=== PATIENT | male | born 1940 | race Caucasian/White ===

== ENCOUNTER 2017-06-18 09:37 | Outpatient (RCR) | payer MEDICARE, OTHER, SELFPAY | END 2017-06-19 | LOC: PULREHAB 09:37 | PROVIDERS: Visit Provider Nurse Practitioner Family | DX: J44.9 Chronic obstructive pulmonary disease, unspecified (principal) | CPT/HCPCS: 93798; G0424 ==

== ENCOUNTER 2017-06-25 10:15 | Outpatient (RCR) | payer MEDICARE, OTHER, SELFPAY | END 2017-06-25 10:18 | LOC: PT 10:15 | PROVIDERS: Family Provider Internal Medicine Adolescent Medicine; PCP Internal Medicine Adolescent Medicine; Visit Provider Nurse Practitioner Family | DX: J44.9 Chronic obstructive pulmonary disease, unspecified (principal) | CPT/HCPCS: G0424 ==

== ENCOUNTER → 2017-07-01 12:11 | Outpatient (CLI) | payer MEDICARE, OTHER, SELFPAY ==
--- NOTE | 2017-07-01 12:17 | XR_ITS ---
XR hand LT min 3V HISTORY: ITS.REASON: LT HAND PAIN ORDERING PHYSICIAN: Yobany Stoll MD PATIENT AGE: 77 years COMPARISON: 05/01/2014 FINDINGS: There are moderate osteoarthritic changes at the first interphalangeal joint with mild osteoarthritic changes of the second and third metacarpophalangeal joints and second DIP and fifth PIP joint. No erosive changes are evident. No fracture or dislocation. IMPRESSION: Osteoarthritic changes of the hand as described above overall not significant changed
== END ==
PROVIDERS: PCP Internal Medicine Adolescent Medicine; Visit Provider Internal Medicine Adolescent Medicine
DX: M79.642 Pain in left hand (principal)
CPT/HCPCS: 73130

== ENCOUNTER → 2017-09-15 09:18 | Outpatient (POV) | payer MEDICARE, OTHER, SELFPAY | PROVIDERS: Family Provider Internal Medicine Adolescent Medicine; PCP Internal Medicine Adolescent Medicine; Visit Provider Internal Medicine | DX: Z00.00 Encounter for general adult medical examination without abnormal findings (principal) ==

== ENCOUNTER → 2017-09-24 13:28 | Outpatient (CLI) | payer MEDICARE, OTHER, SELFPAY ==
--- NOTE | 2017-09-24 13:33 | CT_ITS ---
CT chest wo con COMPARISON: CT scan of chest noncontrast 04/23/2017 HISTORY: Follow-up pulmonary nodules TECHNIQUE: Multiaxial scans obtained from thoracic inlet the hemidiaphragms and were performed without IV contrast. Sagittal coronal reformats were evaluated as well. FINDINGS: The lung foley are somewhat hyperexpanded with tiny centrilobular emphysema again noted. The small pleural-based opacity right upper lobe seen on previous exam has resolved and this likely was a small area of pneumonic infiltrate. Do not definitely see the right upper lobe nodule described previously. The tiny left lower lobe nodule is still present subpleural location but could represent focal post inflammatory scar. No new nodules are seen. Again noted are multiple metallic sutures from previous hiatal hernia surgery. Scans of the upper abdomen again show multiple calcified gallstones. IMPRESSION: Mild centrilobular emphysema stable tiny noncalcified nodule versus focal plaque post left or scarring left base, no other definite ulnar nodule seen.
== END ==
PROVIDERS: Family Provider Internal Medicine Adolescent Medicine; PCP Internal Medicine Adolescent Medicine; Visit Provider Internal Medicine
DX: R91.1 Solitary pulmonary nodule (principal)
CPT/HCPCS: 71250

== ENCOUNTER → 2017-10-23 13:54 | Outpatient (CLI) | payer MEDICARE, OTHER, SELFPAY ==
--- NOTE | 2017-10-23 13:57 | MM_ITS ---
MM Dig mamm BI DX w/CAD COMPARISON: none INDICATION: Left breast soreness. ORDERING PHYSICIAN: Yobany Stoll MD PATIENT AGE: 77 years TECHNIQUE: Routine images along with problems solving views of the left breast FINDINGS: There is heterogeneous increased density in the retroareolar region of the left breast have an a somewhat flame-shaped pattern consistent with gynecomastia. No discrete nodule or mass is evident. The right breast has an unremarkable appearance. IMPRESSION: Left-sided gynecomastia BI-RADS Category: 2 Benign Finding(s) Follow-up recommended as clinically warranted (A letter has been sent to the patient regarding results of the study.)
== END ==
PROVIDERS: Family Provider Internal Medicine Adolescent Medicine; PCP Internal Medicine Adolescent Medicine; Visit Provider Internal Medicine Adolescent Medicine
DX: N63.20 Unspecified lump in the left breast, unspecified quadrant (principal); N62 Hypertrophy of breast
CPT/HCPCS: 77066

== ENCOUNTER → 2017-11-19 12:42 | Outpatient (CLI) | payer MEDICARE, OTHER, SELFPAY | PROVIDERS: Family Provider Internal Medicine Adolescent Medicine; PCP Internal Medicine Adolescent Medicine; Visit Provider Internal Medicine | DX: I20.8 Other forms of angina pectoris (principal); R06.00 Dyspnea, unspecified | CPT/HCPCS: 93306 ==

== ENCOUNTER → 2018-01-05 10:50 | Outpatient (POV) | payer MEDICARE, OTHER, SELFPAY | PROVIDERS: Family Provider Internal Medicine Adolescent Medicine; PCP Internal Medicine Adolescent Medicine; Visit Provider Internal Medicine | DX: Z00.00 Encounter for general adult medical examination without abnormal findings (principal) ==

== ENCOUNTER → 2018-02-23 09:50 | Outpatient (CLI) | payer MEDICARE, OTHER, SELFPAY ==
[2018-02-23 05:11] VITALS: BP 128/80; BP 140/85; PULSE 70; PULSE 82; RESP 18; RESP 26; O2SAT 90; O2SAT 95
[2018-02-23 10:40] VITALS: PULSE 70; PULSE 74
== END ==
PROVIDERS: Family Provider Internal Medicine Adolescent Medicine; PCP Internal Medicine Adolescent Medicine; Visit Provider Internal Medicine
DX: R06.02 Shortness of breath (principal); J44.9 Chronic obstructive pulmonary disease, unspecified
CPT/HCPCS: 94060; 94618; 94640; 94726; 94729

== ENCOUNTER → 2018-03-16 11:35 | Outpatient (POV) | payer MEDICARE, OTHER, SELFPAY | PROVIDERS: Family Provider Internal Medicine Adolescent Medicine; PCP Internal Medicine Adolescent Medicine; Visit Provider Internal Medicine | DX: Z00.00 Encounter for general adult medical examination without abnormal findings (principal) ==

== ENCOUNTER → 2018-05-18 12:07 | Outpatient (POV) | payer MEDICARE, OTHER, SELFPAY | PROVIDERS: Visit Provider Internal Medicine | DX: Z00.00 Encounter for general adult medical examination without abnormal findings (principal) ==

== ENCOUNTER → 2018-06-29 09:33 | Outpatient (POV) | payer MEDICARE, OTHER, SELFPAY | PROVIDERS: Visit Provider Internal Medicine | DX: Z00.00 Encounter for general adult medical examination without abnormal findings (principal) ==

== ENCOUNTER → 2018-07-29 20:16 | Outpatient (CLI) | payer MEDICARE, OTHER, SELFPAY | PROVIDERS: PCP Internal Medicine Adolescent Medicine; Visit Provider Nurse Practitioner Family | DX: G47.33 Obstructive sleep apnea (adult) (pediatric) (principal) | CPT/HCPCS: 95811 ==

== ENCOUNTER → 2018-12-07 13:56 | Outpatient (POV) | payer MEDICARE, OTHER, SELFPAY | PROVIDERS: Visit Provider Internal Medicine | DX: Z00.00 Encounter for general adult medical examination without abnormal findings (principal) ==

== ENCOUNTER → 2018-12-30 12:50 | Outpatient (CLI) | payer MEDICARE, OTHER, SELFPAY | PROVIDERS: PCP Internal Medicine Adolescent Medicine; Visit Provider Internal Medicine | DX: R06.02 Shortness of breath (principal); J44.9 Chronic obstructive pulmonary disease, unspecified | CPT/HCPCS: 94060; 94618; 94726; 94727; 94729 ==

== ENCOUNTER → 2019-01-04 09:46 | Outpatient (POV) | payer MEDICARE, OTHER, SELFPAY | PROVIDERS: Visit Provider Internal Medicine | DX: Z00.00 Encounter for general adult medical examination without abnormal findings (principal) ==

== ENCOUNTER → 2019-01-12 12:44 | Outpatient (CLI) | payer MEDICARE, OTHER, SELFPAY ==
--- NOTE | 2019-01-12 12:49 | CT_ITS ---
CT chest wo con HISTORY: ITS.REASON: SOB,COPD ORDERING PHYSICIAN: Esequiel Yeh MD PATIENT AGE: 78 years COMPARISON: 04/23/2017. Technique: Axial images obtained. Sagittal, and coronal reformatted images are also generated and reviewed. All CT scans at the facility use one or more dose reduction, viz: automated exposure control, ma/kV adjustment per patient size (including targeted exams where dose is matched to indication, i.e. head), or iterative reconstruction technique. FINDINGS: Airway structures are patent except image #13 and 14 shows a 10 mm polypoid density from the posterior left lateral wall of the trachea at the thoracic inlet. Also noted is a stable small 4.0 mm air-filled structure adjacent to the right lateral posterior wall of the mid trachea, image #19. This is stable and likely a tracheal diverticulum. The linear subpleural density in the left lower lobe is stable. Also noted on this study is a 2 mm noncalcified faint subpleural nodule in the right upper lobe and this was present on 05/08/2016 exam as well. Emphysematous lung changes are stable. There is a density likely a coronary artery stent. Heart size is normal. There are no abnormal mediastinal or hilar masses. Again seen are numerous gallstones without pericholecystic fluid or biliary dilatation. Impression: Subpleural short linear left lower lobe density and 2 mm noncalcified right upper lobe subpleural nodule are stable compared to 05/08/2016 suggesting benign etiology. No further follow-up is necessary. Stable chronic small tracheal diverticulum discussed above. Left tracheal wall polypoid density likely some adherent aspirated or retained secretions. Stable uncomplicated cholelithiasis.
== END ==
PROVIDERS: PCP Internal Medicine Adolescent Medicine; Visit Provider Internal Medicine
DX: R06.02 Shortness of breath (principal); J44.9 Chronic obstructive pulmonary disease, unspecified
CPT/HCPCS: 71250

== ENCOUNTER → 2019-02-18 15:04 | Outpatient (CLI) | payer MEDICARE, OTHER, SELFPAY | PROVIDERS: PCP Internal Medicine Adolescent Medicine; Visit Provider Urology | DX: F17.200 Nicotine dependence, unspecified, uncomplicated; G47.30 Sleep apnea, unspecified; I11.9 Hypertensive heart disease without heart failure; I25.10 Atherosclerotic heart disease of native coronary artery without angina pectoris; I48.0 Paroxysmal atrial fibrillation; J44.9 Chronic obstructive pulmonary disease, unspecified; R06.09 Other forms of dyspnea; R60.9 Edema, unspecified; Z95.0 Presence of cardiac pacemaker; Z95.5 Presence of coronary angioplasty implant and graft; E78.49 Other hyperlipidemia | CPT/HCPCS: 93306 ==

== ENCOUNTER → 2019-04-12 11:24 | Outpatient (POV) | payer MEDICARE, OTHER, SELFPAY | PROVIDERS: PCP Internal Medicine Adolescent Medicine; Visit Provider Internal Medicine | DX: Z00.00 Encounter for general adult medical examination without abnormal findings (principal) ==

== ENCOUNTER → 2019-04-19 06:09 | Outpatient (CLI) | payer MEDICARE, OTHER, SELFPAY ==
--- NOTE | 2019-04-19 06:10 | CA_ITS ---
APPROVED REPORT Exam: Pharmacologic Technologist: Oralia Bush, Ht: 5 ft 9 in Wt: 180 lbs BSA: 1.98 m2 HR: 71 bpm BP: 121/73 mmHg Rhythm: NSR,ST-T ABNORMALITY INFERIORLY Medical History Medical History: HTN Medications: Asa,,,,, Trazadone,,,,, Sotalol,,,,, Atorvastatin,,,,, Flonase,,,,, Duoneb,,,,, Lasix,,,,, TAMSULOSIN,,,,, Montelukast,,,,, Nitro,,,,, ANoro,,,,, OmeprazLE,,,,, Allergies: No known drug allergies Cardiac Risk Factors: HTN, FHX of CAD Stress Test Details Test: LEXISCAN HR Resting HR: 70 bpm Max Heart Rate (APMHR): 140 bpm Max HR Achieved: 81 bpm Target HR (85% APMHR): 119 bpm % of APMHR: 57 Recovery HR: 72 bpm BP Resting BP: 121.0/73.0 mmHg Max BP: 121.0/73.0 mmHg Recovery BP: 118.0/54.0 mmHg ECG Resting ECG: NSR,ST-T ABNORMALITY INFERIORLY Clinical Exercise duration: 05:07 min Highest Stage Achieved: Exercise capacity: 1.0 METs Stress ECG Conclusion DURING TEST PATIENT WAS PLACED ON 2LPM NASAL CANNULA FOR HIS COMFORT. DURING INFUSION OF LEXISCAN PATIENT HAD DYSPNEA,SOA BUT NO CHEST PAIN. BRIEF RUNS OF V. PACING. OCCASIONAL PAC. NO SIGNIFICANT ST-T CHANGES. UNREMARKABLE LEXISCAN STRESS. MYOVIEW IMAGES REPORTED SEPARATELY. Electronically signed by : Anibal Keen, 04/22/2019 14:44:11
--- NOTE | 2019-04-19 06:10 | NM_ITS ---
APPROVED REPORT Exam: Nuclear Stress Test Indication: SOB, High cholesterol, Tobacco use, Family history, CAD Patient Location: Outpatient Stress Tech: Dinora Rachelle NM Tech:Nicky Long, ARRT, RT (R)(N) Ht: 5 ft 9 in Wt: 180 lbs HR: 71 bpm BP: 121/73 mmHg BSA: 1.98 m2 BMI: 26.5 History: SOB, High cholesterol, Tobacco use, Family history, CAD Procedure: Patient received a 0.4 mg of intravenous Lexiscan, resting heart rate 71 bpm, resting blood pressure 121/73 mmHg, with Lexiscan maximum heart rate achived was 76 bpm which is % of the maximum predicted heart rate and blood pressure was 116/58 mmHg. With Lexiscan, patient denied any complaint of chest pain. Cardiac Stress and Resting SPECT Images: Cardiac Stress and Resting SPECT images were obtained using technetium 99m Myoview 31.0 mCi stress and 10.78 mCi at rest. Ejection fraction is normal at 65%. A fixed defect is present within the inferoapical region. This becomes more prominent on the rest images. These findings are consistent with ischemic changes with an area of infarction at the apex with prominent diaphragmatic attenuation in the inferior wall Conclusion: Ejection fraction is normal at 65%. A fixed defect is present within the inferoapical region. This becomes more prominent on the rest images. These findings are consistent with ischemic changes with an area of infarction at the apex with prominent diaphragmatic attenuation in the inferior wall No reversible defects are evident Electronically signed by : Hamzah Hamilton MD 04/20/2019 16:03:49
--- NOTE | 2019-04-19 07:04 | HMH.ITSHM ---
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 []ASA ATORVASTATIN SOTOLOL MONTALUKAST OMEPRAZOLE MULTIVITAMIN PROAIR
== END ==
PROVIDERS: PCP Internal Medicine Adolescent Medicine; Visit Provider Nurse Practitioner Family
DX: G47.33 Obstructive sleep apnea (adult) (pediatric) (principal); I11.9 Hypertensive heart disease without heart failure; I25.10 Atherosclerotic heart disease of native coronary artery without angina pectoris; J44.9 Chronic obstructive pulmonary disease, unspecified; R06.00 Dyspnea, unspecified; Z95.0 Presence of cardiac pacemaker; Z95.5 Presence of coronary angioplasty implant and graft
CPT/HCPCS: 78452; 93017; A9502; J2785

== ENCOUNTER 2019-05-11 14:25 | Inpatient (IN) ==
[2019-05-11 14:52] LABS: Basophils # 0.1 K/mm3 (0-0.2); Basophils % 0.7 % (0.1-2.0); Eosinophils # 0.8 K/mm3 (0.0-0.4); Eosinophils % 7.2 % (0.1-12.0); Hemoglobin 15.4 g/dL (14.1-18.0); Lymphocytes # 1.6 K/mm3 (0.7-4.5); Lymphocytes % 14.5 % (10-50); Mean Corpuscular HGB Conc 34.2 g/dL (31.8-35.4); Mean Corpuscular Volume 104.2 fl (80-94); Mean Platelet Volume 8.2 fl (7.4-10.4); Monocytes # 0.7 K/mm3 (0.1-1.0); Neutrophils % 71.6 % (37.0-80.0); Platelet Count 302 K/mm3 (142-424); Red Blood Count 4.32 M/mm3 (4.60-6.20); Red Cell Distribution Width 13.9 % (11.5-17.5); White Blood Count 11.2 K/mm3 (4.8-10.8)
[2019-05-11 15:00] LABS: Albumin/Globulin Ratio 1.1 (1.1-1.8); Bilirubin,Total 0.7 mg/dL (0.2-1.0); Globulin 3.8 gm/dl (1.3-3.2); Total Protein,Serum 7.8 gm/dL (6.4-8.2)
--- NOTE | 2019-05-11 15:50 | Emergency Department Note ---
ED Disposition Clinical Impression: Acute exacerbation of chronic obstructive airways disease Disposition: Admitted as Observation Condition on Discharge: Fair - Critical Care Critical Care Time: No Attestation: On 05/11/19, the high probability of a clinically significant, sudden or life threatening deterioration of the following system(s) required my full and direct attention, intervention and personal management. The time I documented below is in addition to time spent performing reported procedures but includes the foll owing listed in this critical care notation. Medical Decision Making - Medical Records Medical records reviewed: Yes: I reviewed the patient's medical records. - Jamie Inquiry Pt receiving controlled substance: No Vital Signs: 05/11/19 14:27 Temperature 98.7 F Temperature Source Oral Pulse Rate [Right Radial] 78 Respiratory Rate 20 Blood Pressure [Right Arm] 165/85 H Blood Pressure Mean [Right Arm] 111 Blood Pressure Source [Right Arm] Automatic Cuff Blood Pressure Position [Right Arm] Sitting 02 Sat by Pulse Oximetry 95 Oxygen Delivery Method Nasal Cannula Oxygen Flow Rate (LPM) 2 - Lab Data Lab results reviewed: Yes: I reviewed the patient's lab results. Lab Results 05/11/19 14:15: WBC 11.2 H, RBC 4.32 L, Hgb 15.4, Hct 45.0, MCV 104.2 H, MCH 35.6 H, MCHC 34.2, RDW 13.9, Plt Count 302, MPV 8.2, Neut % (Auto) 71.6, Lymph % (Auto) 14.5, Bath % (Auto) 6.0, Eos % (Auto) 7.2, Baso % (Auto) 0.7, Neut # (Auto) 8.0 H, Lymph # (Auto) 1.6, Bath # (Auto) 0.7, Eos # (Auto) 0.8 H, Baso # (Auto) 0.1 05/11/19 14:15: Sodium 139, Potassium 4.0, Chloride 102, Carbon Dioxide 33 H, Anion Gap 8.0, BUN 11, Creatinine 0.68 L, Estimated Creat Clear 68, Estimated GFR 112, Est GFR ( Amer) 136, Glucose 85, Calcium 9.0, Total Bilirubin 0.7, AST 20, ALT 21, Alkaline Phosphatase 147 H, Total Protein 7.8, Albumin 4.0, Globulin 3.8 H, Albumin/Globulin Ratio 1.1 05/11/19 14:15: Troponin I < 0.02 05/11/19 14:57: Lactate 1.3 05/11/19 15:31: Specimen Source Right brachial, O2 % 2, ABG pH 7.32 L, ABG pCO2 60.4 H, ABG pO2 82.1, ABG HCO3 30.3 H, ABG Total CO2 32.1 H, ABG O2 Saturation 95, ABG Base Excess 4.2 H, Hamzah Test acceptable Result diagrams: 05/11/19 14:15 05/11/19 14:15 Orders (Tests/Meds): ED MEDICATIONS Generic Name Dose Route Start Last Admin Trade Name Freq PRN Reason Stop Dose Admin Azithromycin 500 mg/ Sodium 250 mls @ 250 mls/hr 05/11/19 16:45 Chloride IV 05/25/19 16:44 Q24H SANTANA Protocol Ceftriaxone Sodium 1 gm/ 50 mls @ 100 mls/hr 05/11/19 16:45 Sodium Chloride IV 05/25/19 16:44 Q24H SANTANA Protocol Levalbuterol HCl 1.25 mg 05/11/19 20:00 Xopenex 1.25mg/3ml Neb IH 06/10/19 19:59 QIDRT SANTANA Discontinued Medications Generic Name Dose Route Start Last Admin Trade Name Freq PRN Reason Stop Dose Admin Methylprednisolone Sodium Succinate 125 mg 05/11/19 15:50 05/11/19 15:52 Solu-Medrol 125mg/2ml Vial IV 05/11/19 15:51 125 mg ONCE ONE Administration ORDERS Category Date Time Status Troponin I Q3H Lab 05/11/19 19:00 Ordered Troponin I Q3H Lab 05/11/19 22:00 Ordered Blood Culture Stat Micro 05/11/19 14:57 Received - Radiology Data #1 Image(s): Chest Image Reviewed: Yes I reviewed the patient's radiology image Preliminary Findings: Abnormal (copd) - ECG Data Tracing #1 Normal Sinus Rhythm: Yes Ischemic changes: non-specific ST-T wave changes - BRENT Score for Non-Stemi Age of Patient: 80-89 years old Heart Rate: 70-89 bpm Systolic Blood Pressure: 160-199 mmHg Serum Creatinine: 0.40-0.79 mg/dl CHF Killip Class: I-No CHF Other Risk Factors: None Non-Stemi Risk Score: 114 Resp/SOB HPI - General Chief Complaint: Shortness of Breath/Dyspnea Stated Complaint: Shortness of Air Time Seen by Provider: 05/11/19 14:45 Mode of Arrival: EMS Source of Information: Patient, Relative, EMS, Medical Record Limitations: No Limitations Description of Symptoms (Recalled from ER Triage Doc. by RN): C/O SOA SINCE YEST ERDAY. PT STATES THAT HE HAS TAKEN 5 DUONEB TREATMENTS SINCE 11P LAST NIGHT. PT STATES THAT HE IS NOW FEELING MUCH BETTER. - History of Present Illness progressive sob and cough over the last 24 hrs with multiple with hx of copd MD Complaint: shortness of breath Onset (ago): day(s) Severity: moderate Known history of: COPD Associated symptoms: denies other symptoms Treatment prior to arrival: bronchodilator - Related Data Home oxygen amount: 2 liters Home Medications Medication Instructions Recorded Confirmed aspirin 325 mg tablet 162.5 mg PO .qday tab 07/24/17 05/10/19 [id number] tablet 1 tab PO ONCE 07/24/17 05/10/19 montelukast 10 mg tablet 10 mg PO DAILY tab 07/28/17 05/10/19 roflumilast 500 mcg tablet 500 mcg PO DAILY tab 07/28/17 05/10/19 ipratropium-albuterol 0.5 mg-3 1 applic INHALATION BID 30 Days 08/10/17 05/10/19 mg(2.5 mg base)/3 mL nebulization #360 soln umeclidinium 62.5 mcg-vilanterol 1 applicatio INHALATION BID 30 08/10/17 05/10/19 25 mcg/actuation powdr for Days #60 inhalation fluticasone furoate 200 1 applic INHALATION BID 30 Days 08/09/18 05/10/19 mcg-vilanterol 25 mcg/dose #60 each inhalation powder Atorvastatin Calcium [Lipitor 20mg 20 mg PO DAILY 10/04/18 05/10/19 Tablet] Trazodone HCl 100 mg PO DAILY 05/02/19 05/10/19 Previous Rx's Medication Instructions Recorded nitroglycerin 0.4 mg sublingual 0.4 mg SUBLINGUAL Q5-15M PRN #30 12/15/17 tablet tab sotalol 120 mg tablet 120 mg PO Q12H #180 tab 03/18/19 omeprazole 40 mg capsule,delayed 40 mg PO DAILY #90 cap 04/15/19 release Allergies Allergy/AdvReac Type Severity Reaction Status Date / Time No Known Drug Allergies Allergy Unknown Verified 05/10/19 10:00 [facility] History - Hepatitis A Screen Drug use history?: No High risk sexual behaviors?: No History of sexually transmitted infection?: No Currently employed?: No Childcare worker?: No Do you have indoor plumbing?: Yes Do you have electricity?: Yes Attestation statement:: This patient has been screened for Hepatitis A risk factors. I have reviewed the patient's past medical history: Yes Medical History: Reports:: Arrhythmia, Asthma, Atrial Fibrillation, Chronic Obstructive Pulmonary Disease (COPD), Coronary Artery Disease, Gastroesophageal Reflux Disease(GERD), Hyperlipidemia, Hypertension, Internal Pacemaker Denies:: Cancer, Diabetes Mellitus Type 1, Diabetes Mellitus Type 2, MRSA, Seizures Other Medical History: Reports: Other Comment: CINTHIA Other Surgeries: Yes: Cardiac Catheterization, Colonoscopy, Coronary Stent, Hernia Repair, Pacemaker, Other (Back Sx, LHC-stent, Loop recorder placed) Amputation: No Fractures: No Comment: Back sx - Social History Smoking Status: Never smoker Tobacco Type: cigarettes # Packs/Day (cigarettes): 1 Alcohol Intake: never Alcohol Intake Frequency:: other Substance Use Type: denies use Occupational Status: retired Housing: house Household Members: none Family Hx:: Heart Attack ROS Obtained: Yes All systems reviewed & no additional complaints - Constitutional Constitutional: Denies fever(s) - Eyes Eyes: Denies change in vision - ENT Ears, Nose, Mouth, and Throat: Denies sore throat - Cardiovascular Cardiovascular: Denies chest pain, Reports dyspnea - Respiratory Respiratory: Yes cough, Yes non-productive cough, No coughing up blood - Gastrointestinal Gastrointestingal: Denies: abdominal pain - Genitourinary Male Genitourinary: Denies hematuria - Musculoskeletal Musculoskeletal: Denies joint swelling - Integumentary/Breasts Skin/Breast: Denies rash - Neurologic Neurologic: Denies seizure-like activity Physical Exam - General General appearance: alert - Head Head exam: normocephalic - Eye Eye exam: Present: PERRL, EOMI - ENT ENT exam: Present: mucous membranes dry - Neck Neck exam: Present: trachea midline - Respiratory Respiratory exam: Present: wheezes, accessory muscle use, prolonged expiratory phase. Absent: respiratory distress - Cardiovascular Cardiovascular exam: Present: regular rate, systolic murmur, +S4 - Abdominal Exam Abdominal exam: Present: soft - Extremities Exam Extremities exam: Present: pedal edema. Absent: calf tenderness - Neurological Exam Neurological exam: Present: alert, CN II-XII intact - Psychiatric Psychiatric exam: Present: normal affect - Skin Skin exam: Absent: rash
[2019-05-11 16:23] LABS: ABG Base Excess 4.2 mmol/L (-2.4-2.3); ABG HCO3 30.3 mmhg (22.0-26.0); ABG Oxygen Saturation 95 % (90-100); ABG PH 7.32 mmol/L (7.35-7.45); ABG PO2 82.1 mmhg (80-100); ABG TCO2 32.1 mmhg (23-27)
[2019-05-11 16:24] LABS: Oxygen 2 %
[2019-05-11 16:25] LABS: Allen's Test acceptable
[2019-05-11 16:35] LABS: ABG PCO2 60.4 mmhg (35.0-45.0)
[2019-05-11 22:00] LABS: Anion Gap 3.4 mEq/L (5-15); Calcium 8.1 mg/dL (8.5-10.1)
[2019-05-11 22:22] LABS: ABG Base Excess 0.2 mmol/L (-2.4-2.3); ABG HCO3 28.8 mmhg (22.0-26.0); ABG Oxygen Saturation 92 % (90-100); ABG PO2 75.2 mmhg (80-100); ABG TCO2 31.3 mmhg (23-27)
[2019-05-11 22:24] LABS: Allen's Test Acceptable; Oxygen 30% %
[2019-05-11 22:26] LABS: ABG PCO2 80.7 mmhg (35.0-45.0); ABG PH 7.17 mmol/L (7.35-7.45)
[2019-05-12 02:07] LABS: ABG Base Excess 0.7 mmol/L (-2.4-2.3); ABG Oxygen Saturation 98 % (90-100); ABG PH 7.25 mmol/L (7.35-7.45); ABG PO2 118.2 mmhg (80-100)
[2019-05-12 02:09] LABS: Allen's Test Acceptable; Oxygen 35 %; PEEP 8
[2019-05-12 02:10] LABS: ABG PCO2 65.9 mmhg (35.0-45.0)
[2019-05-12 06:38] LABS: Basophils % 0.1 % (0.1-2.0); Hematocrit 37.5 % (42.0-52.0); Lymphocytes # 0.9 K/mm3 (0.7-4.5); Lymphocytes % 5.4 % (10-50); Mean Corpuscular HGB Conc 33.6 g/dL (31.8-35.4); Mean Corpuscular Volume 103.9 fl (80-94); Monocytes # 0.4 K/mm3 (0.1-1.0); Monocytes % 2.1 % (1.7-9.3); Neutrophils # 15.7 K/mm3 (1.8-7.8); Neutrophils % 92.4 % (37.0-80.0); Platelet Count 237 K/mm3 (142-424); Red Blood Count 3.61 M/mm3 (4.60-6.20); Red Cell Distribution Width 13.8 % (11.5-17.5); White Blood Count 16.9 K/mm3 (4.8-10.8)
[2019-05-12 06:49] LABS: Anion Gap 5.6 mEq/L (5-15); Calcium 8.3 mg/dL (8.5-10.1)
[2019-05-12 06:59] LABS: Hemoglobin 12.7 g/dL (14.1-18.0)
--- NOTE | 2019-05-12 07:44 | Pharmacy Consult Notes ---
[facility] [place] Pharmacy VTE Monitoring - Patient Demographics Admission date: 05/11/19 Report Date: 05/12/19 Time: 07:43 Allergies/Adverse Reactions: Patient Allergies No Known Drug Allergies Allergy (Unknown, Verified 05/10/19 10:00) Height: 1.75 m Weight: 78.67 kg Patient Problems: Current Active Problems Acute exacerbation of chronic obstructive airways disease (Acute) - VTE Risk Labs: VTE Related Lab Results Hgb 12.7 g/dL (14.1-18.0) L D 05/12/19 06:13 Hct 37.5 % (42.0-52.0) L 05/12/19 06:13 Plt Count 237 K/mm3 (142-424) 05/12/19 06:13 BUN 11 mg/dL (7-18) 05/12/19 06:13 Creatinine 0.77 mg/dL (0.70-1.30) 05/12/19 06:13 Estimated Creat Clear 66 mL/min (50-200) 05/12/19 06:13 Was VTE Risk Assessment Performed: Yes VTE Score: 7 VTE Risk Level: Moderate Risk - Prophylaxis VTE Prophylaxis Ordered?: Yes Types of VTE Prophylaxis: TEDS Knee High Location of Applied Device: Bilateral Lower Extremeties - VTE Diagnosis Confirmed Treatment or plan recommended: Continue Current Treatment
[2019-05-12 08:17] LABS: Lymphocytes % 7 % (10-50); Monocytes % 2 % (2-9); Myelocytes % 1 (0-1); Neutrophils % 87 % (42-76); Total Cells Counted 100
[2019-05-12 08:18] LABS: Anisocytosis 1+; Macrocytosis 1+
--- NOTE | 2019-05-12 08:28 | History & Physical Report ---
*Admission Date: 05/11/19 *Chief complaint: shortness of breath *History of present illness: 79-year-old gentleman with severe COPD on oxygen at home who presented to the ER due to worsening shortness of breath, cough, congestion. Has any fabienne fevers at home, chest pain, nausea, vomiting. Uses nebulizer 3-4 times a day at home but is not helping with his shortness of breath. Initial work-up in the ER showed concern for COPD with infiltrate in the right lower lobe/right hilar region on x-ray, hypoxemia on a blood gas and hypercarbia with respiratory acidosis of pH below 7.2. He was noted to have an elevated white count and admitted for hypoxemic and hypercarbic respiratory failure in the setting of suspected pneumonia. Started on antibiotics and steroids. Getting breathing treatments through the night. Initially required Vapotherm overnight with some improvement in his respiratory status. On interview this morning is in mild distress on interview on 2 to 3 L of supple mental oxygen through nasal cannula. Family at bedside stating he looks a little better but still ill compared to his baseline. 14 point review of systems reviewed. Positives and negatives as per above. [facility] History I have reviewed the patient's past medical history: Yes Medical History: Reports:: Arrhythmia, Asthma, Atrial Fibrillation, Chronic Obstructive Pulmonary Disease (COPD), Coronary Artery Disease, Gastroesophageal Reflux Disease(GERD), Hyperlipidemia, Hypertension, Internal Pacemaker Denies:: Cancer, Diabetes Mellitus Type 1, Diabetes Mellitus Type 2, MRSA, Seizures *Have you ever received a pneumonia vaccine?: Yes *Have you received a flu vaccine this season?: Yes Other Medical History: Reports: Other Other Surgeries: Yes: Cardiac Catheterization, Colonoscopy, Coronary Stent, Hernia Repair, Pacemaker, Other (Back Sx, LHC-stent, Loop recorder placed) Amputation: No Fractures: No - *Social History Smoking Status: Never smoker Tobacco Type: cigarettes # Packs/Day (cigarettes): 1 Alcohol Intake: never Alcohol Intake Frequency:: other Substance Use Type: denies use *Occupational Status:: retired Housing: house Household Members: none *Travel in the last 8 weeks: None Family Hx:: Heart Attack Review of Systems - Review of Systems Review of systems:: pertinent systems reviewed and negative unless documented below - *Neurologic Denies seizure-like activity Meds Home Medications Medication Instructions Recorded Confirmed Type aspirin 325 mg tablet 162.5 mg PO DAILY tab 07/24/17 05/12/19 History jqgolnrrhsbq-sfnsextu-oibguo tablet 1 tab PO ONCE 07/24/17 05/11/19 History montelukast 10 mg tablet 10 mg PO DAILY tab 07/28/17 05/11/19 History fluticasone furoate 200 1 puff IH DAILY 30 Days #60 each 08/09/18 05/12/19 History mcg-vilanterol 25 mcg/dose inhalation powder Atorvastatin Calcium [Lipitor 20mg 20 mg PO HS 10/04/18 05/12/19 History Tablet] sotalol 120 mg tablet 120 mg PO Q12H #180 tab 03/18/19 05/11/19 Rx omeprazole 40 mg capsule,delayed 40 mg PO DAILY #90 cap 04/15/19 05/11/19 Rx release Glycopyrrolate/Formoterol Fum 2 puffs IH BID 05/12/19 05/12/19 History [Bevespi Aerosphere Inhaler] Ipratropium/Albuterol Sulfate 3 ml IH QID 05/12/19 05/12/19 History [Duoneb 3mL neb] Trazodone HCl [Desyrel 50mg tablet] 50 mg PO HSP PRN 05/12/19 05/12/19 History Allergies Allergy/AdvReac Type Severity Reaction Status Date / Time No Known Drug Allergies Allergy Unknown Verified 05/10/19 10:00 Exam Vital signs and Labs for Last 24 Hours: Temp Pulse Resp BP Pulse Ox 97.6 F 70 18 126/78 90 L 05/12/19 04:00 05/12/19 06:19 05/12/19 04:00 05/12/19 04:00 05/12/19 06:19 Laboratory Results - last 24 hr 05/11/19 14:15: WBC 11.2 H, RBC 4.32 L, Hgb 15.4, Hct 45.0, MCV 104.2 H, MCH 35.6 H, MCHC 34.2, RDW 13.9, Plt Count 302, MPV 8.2, Neut % (Auto) 71.6, Lymph % (Auto) 14.5, [place] % (Auto) 6.0, Eos % (Auto) 7.2, Baso % (Auto) 0.7, Neut # (Auto) 8.0 H, Lymph # (Auto) 1.6, [place] # (Auto) 0.7, Eos # (Auto) 0.8 H, Baso # (Auto) 0.1 05/11/19 14:15: Sodium 139, Potassium 4.0, Chloride 102, Carbon Dioxide 33 H, Anion Gap 8.0, BUN 11, Creatinine 0.68 L, Estimated Creat Clear 68, Estimated GFR 112, Est GFR ( Amer) 136, Glucose 85, Calcium 9.0, Total Bilirubin 0.7, AST 20, ALT 21, Alkaline Phosphatase 147 H, Total Protein 7.8, Albumin 4.0, Globulin 3.8 H, Albumin/Globulin Ratio 1.1 05/11/19 14:15: Troponin I < 0.02 05/11/19 14:57: Lactate 1.3 05/11/19 15:31: Specimen Source Right brachial, O2 % 2, ABG pH 7.32 L, ABG pCO2 60.4 H, ABG pO2 82.1, ABG HCO3 30.3 H, ABG Total CO2 32.1 H, ABG O2 Saturation 95, ABG Base Excess 4.2 H, Hamzah Test acceptable 05/11/19 18:58: Troponin I 0.06 05/11/19 21:47: Troponin I 0.06 05/11/19 21:47: Sodium 126 L, Potassium 4.4, Chloride 98, Carbon Dioxide 29, Anion Gap 3.4 L, BUN 12, Creatinine 0.79, Estimated Creat Clear 67, Estimated GFR 94, Est GFR ( Amer) 114, Glucose 161 H D, Calcium 8.1 L 05/11/19 22:19: Specimen Source Right radial, O2 % 30%, ABG pH 7.17 L*, ABG pCO2 80.7 H, ABG pO2 75.2 L, ABG HCO3 28.8 H, ABG Total CO2 31.3 H, ABG O2 Saturation 92, ABG Base Excess 0.2, Hamzah Test Acceptable 05/12/19 02:04: Specimen Source Right radial, O2 % 35, ABG pH 7.25 L, ABG pCO2 65.9 H, ABG pO2 118.2 H, ABG HCO3 28.0 H, ABG Total CO2 30.0 H, ABG O2 Saturation 98, ABG Base Excess 0.7, Hamzah Test Acceptable, PEEP 8 05/12/19 06:13: WBC 16.9 H D, RBC 3.61 L, Hgb 12.7 L D, Hct 37.5 L, MCV 103.9 H, MCH 34.9 H, MCHC 33.6, RDW 13.8, Plt Count 237, MPV 8.0, Neut % (Auto) 92.4 H, Lymph % (Auto) 5.4 L, [place] % (Auto) 2.1, Eos % (Auto) 0.0 L, Baso % (Auto) 0.1, Neut # (Auto) 15.7 H, Lymph # (Auto) 0.9, [place] # (Auto) 0.4, Eos # (Auto) 0.0, Baso # (Auto) 0.0, Total Counted 100, Neutrophils % (Manual) 87 H, Band Neutrophils % 3.0, Lymphocytes % (Manual) 7 L, Monocytes % (Manual) 2, Myelocytes % 1, Platelet Estimate Normal, Anisocytosis 1+, Macrocytosis 1+ 05/12/19 06:13: Sodium 137, Potassium 4.6, Chloride 105, Carbon Dioxide 31, Anion Gap 5.6, BUN 11, Creatinine 0.77, Estimated Creat Clear 66, Estimated GFR 97, Est GFR ( Amer) 118, Glucose 138 H, Calcium 8.3 L, Magnesium 2.0 I & O for Last 24 hours: Intake & Output 05/09/19 05/10/19 05/11/19 05/12/19 23:59 23:59 23:59 23:59 Intake Total 538 / 538 Output Total 1250 / 1250 Balance -712 / -712 Weight 80.371 kg 78.67 kg - Constitutional moderate distress, average body habitus, chronically ill appearing - *Routine HEENT Exam Head: Present: normocephalic Eye: Present: EOMI, PERRL ENT: Present: mucous membranes moist - *Routine Neck Exam Present: supple. Absent: lymphadenopathy - *Routine Respiratory Exam Present: accessory muscle use, prolonged expiratory phase, rales, rhonchi, wheezes, diminished air movement (in bilateral bases) Assessment and Plan (1) Pneumonia Current visit: Yes Status: Acute Qualifiers: Pneumonia type: due to unspecified organism Category: Medical Code(s): J18.9 - Pneumonia, unspecified organism PSI: 110 Level 4 moderate risk. Inpatient management recommended; Curb-65 of 1 however, though severity clinically worse than this risk tool estimates. (2) COPD exacerbation Current visit: No Status: Acute Category: Medical Code(s): J44.1 - Chronic obstructive pulmonary disease with (acute) exacerbation (3) Hyperlipidemia Current visit: No Status: Chronic Qualifiers: Category: Medical Code(s): E78.5 - Hyperlipidemia, unspecified (4) Hypertensive heart disease Current visit: No Status: Chronic Qualifiers: Category: Medical Code(s): I11.9 - Hypertensive heart disease without heart failure (5) PAF (paroxysmal atrial fibrillation) Current visit: No Status: Chronic Category: Medical Code(s): I48.0 - Paroxysmal atrial fibrillation (6) Tobacco dependence syndrome Current visit: No Status: Chronic Category: Medical Code(s): F17.200 - Nicotine dependence, unspecified, uncomplicated (7) Acute hypercapnic respiratory failure Current visit: Yes Status: Acute Category: Medical Code(s): J96.02 - Acute respiratory failure with hypercapnia (8) Acute on chronic respiratory failure with hypoxemia Current visit: Yes Status: Acute Category: Medical Code(s): J96.21 - Acute and chronic respiratory failure with hypoxia - Assessment and plan all Dx Assessment and Plan for all problems:: 79-year-old male with acute on chronic hypoxemic respiratory failure and hypercapnia with respiratory acidosis. Secondary to pneumonia in the setting of chronic COPD. Continues to require acute admission due to his respiratory failure. Will increase breathing treatments every 4 hours with DuoNeb's. PRN breathing treatments of Xopenex every hour as needed for shortness of breath. Continue antibiotics and steroids as ordered. We will add respiratory panel to assess for any viral etiology. Risk stratified under pneumonia however clinically patient for more ill than c urb 65 stratifies. Continue BiPAP at night while asleep. Goal oxygen saturation greater than 92 while awake, greater than 88 while asleep. Will resume home medications for chronic conditions Full code Diet DVT prophylaxis with JEREL [place] DC Nichols catheter
[2019-05-12 12:57] LABS: Coronavirus 229E Not Detected (NotDetected); Coronavirus NL63 Not Detected (NotDetected); Coronavirus OC43 Not Detected (NotDetected); Coronovirus HKU1,PCR Not Detected (NotDetected)
--- OUTSIDE RECORDS SUMMARY | 2019-05-12 15:22 | External Medical Summary | Continuity of Care Document ---
:1940 Author Organization [facility] Address [address] [facility] [address] [place] [address] Phone Care Team Providers Name Role Phone Dodie Primary Care Provider Riri Attending Provider Porfirio Yeh Attending Provider Black Attending Provider Black Attending Provider Vicki Lo Attending Provider Leonila Primary Care Provider Leonila Attending Provider Dodie Attending Provider Vanesa Kidd Attending Provider Allergies, Adverse Reactions, Alerts Allergen Type Severity Reaction Last Verified Status Updated No Known Drug Allergy Unknown Yes Active Allergies Medications Medication Status Dose Units Route Sig Qty Days Start End Instruct ions Date Date Aspirin Active 162.5 MG Oral Daily July 24, 2017 3:20pm Multivit With Active 1 TAB Oral Once July/Lute 2017 in 3:22pm Montelukast Active 10 MG Oral Daily July 10:47am Fluticasone/V Active 1 PUFF INHALATION Daily 60 July ilanterol 2018 1:47pm Sotalol Hcl Active 120 MG Oral Q12H 180 March 18, 2019 1:45pm Omeprazole Active 40 MG Oral Daily 90 April 15, 2019 2:13pm Atorvastatin Active 20 MG Oral At September bedtime nightly 2018 10:48am Ipratropium/A Active 3 ML INHALATION April lbuterol times a 2018 7:42am Trazodone Hcl Active 50 MG Oral At April bedtime nightly 2018 as 8:57am needed Glycopyrrolat Active 2 PUFFS INHALATION Twice a April e/Formoterol 2018 9:45am Problems Active Problems Medical Problem Onset Date Status Pulmonary arterial hypertension Active Acute exacerbation of chronic Active obstructive airways disease Tobacco dependence syndrome Active Insomnia Active Acute hypercapnic respiratory failure Ac tive Stented coronary artery Active Sleep apnea Active Dyspnea Active Edema Active Hyperlipidemia Active Acute on chronic respiratory failure Act april with hypoxemia PAF (paroxysmal atrial fibrillation) Act april COPD (chronic obstructive pulmonary Acti ve disease) 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 COPD exacerbation Active Abnormal result of other Active cardiovascular function study Pneumonia Active Hypertensive heart disease Active Coronary arteriosclerosis Active Procedures Procedure Date Performed Status XR chest portable May 11, 2019 completed XR chest portable May 12, 2019 completed ECG initial Besson May 11, 2019 completed Blood Culture May 11, 2019 active NM michele perf SPECT rest & str April 19, 2019 completed Relevant Diagnostic Tests and/or Laboratory Data Laboratory Results Test Date/Time Result Interpretation Reference Result Comment Performing Range Site White Blood April 16.9 K/mm3 4.8-10.8 Delta: 11.2 on [facility], [facility] 36 E Count 201805/11/19 [place] [address] 6:13am Red Blood April 3.61 M/mm3 4.60-6.20 [facility], [address] [place] [address] 36 E Count 2018 Jade [place] [address] 6:13am Hemoglobin April 12.7 g/dL 14.1-18.0 Delta: 15.4 on [facility], [facility] [place] [facility] 36 E 201805/11/19-1414 [place] [address] 6:13am Hematocrit April 37.5 % 42.0-52.0 [facility], [address] [place] [address] 36 E 2018 Jade MARX [address] 6:13am Mean April 103.9 fl 80-94 [facility], [address] [place] [address] E Corpuscular 2018 [place] [address] Volume 6:13am Mean April 34.9 pg 27.0-31.2 [facility], [address] [place] [address] E Corpuscular 2018 Hannah [place] [address] Hemoglobin 6:13am Mean April 33.6 g/dL 31.8-35.4 [facility], [address] [place] [address] E Corpuscular 2018 [place] [address] Hemoglobin 6:13am Concent Red Cell April 13.8 % 11.5-17.5 [facility], [address] [place] [address] E Distributio 2018 [place] [address] n Width 6:13am Platelet April 237 K/mm3 142-424 [facility], [address] [place] [address] E Count 2018 Jade Pearson 6:13am Mean April 8.0 fl 7.4-10.4 [facility], [address] [place] [address] 36 E Platelet 2018 Jade [place] [address] Volume 6:13am Neutrophils November 92.4 % 37.0-80.0 [facility], [address] [place] [address] 36 E (%) (Auto) 2018 Antoine MAR[place] [address] 6:13am Lymphocytes November 5.4 % 10-50 [place] [address] E (%) (Auto) 2018 Antoine MARX [address] 6:13am Monocytes November 2.1 % 1.7-9.3 [facility], [address] [place] [address] 36 E (%) (Auto) 2018 Antoine MARX [address] 6:13am Eosinophils November 0.0 % 0.1-12.0 [place] [address] E (%) (Auto) 2018 Antoine [place] [address] 6:13am Basophils November 0.1 % 0.1-2.0 [place] [address] E (%) (Auto) 2018 Antoine MAR[place] [address] 6:13am Neutrophils April 15.7 K/mm3 1.8-7.8 [facility], [address] [place] [address] 36 E # (Auto) 2018 [place] [address] 6:13am Lymphocytes April 0.9 K/mm3 0.7-4.5 [facility], [address] [place] [address] 36 E # (Auto) 2018 [place] [address] 6:13am Monocytes # November 0.4 K/mm3 0.1-1.0 [facility], [address] [place] [address] 36 E (Auto) 2018 [place] [address] 6:13am Eosinophils November 0.0 K/mm3 0.0-0.4 [facility], [address] [place] [address] 36 E # (Auto) 2018 [place] [address] 6:13am Basophils # November 0.0 K/mm3 0-0.2 [facility], [address] [place] [address] E (Auto) 2018 [place] Pearson 6:13am Differentia November 100 [facility], [address] [place] [address] 36 E l Total 2018 [place] [address] Cells 6:13am Counted Neutrophils April 87 % 42-76 [facility], [address] [place] [address] E % (Manual) 2018 Spencerkaylynn bar [place] [address] 6:13am Band November 3.0 0-8 [facility], [address] [place] [address] 36 E Neutrophils 2018 [place] [address] % 6:13am Lymphocytes November 7 % 10-50 [facility], [address] [place] [address] 36 E % (Manual) 2018 Cynramonita bar MARX [address] 6:13am Monocytes % November 2 % 2-9 [facility], [address] [place] [address] E (Manual) 2018 [place] [address] 6:13am Myelocytes November 1 0-1 [facility], [address] [place] [address] E % 2018 [place] [address] 6:13am Platelet November Normal [facility], [address] [place] [address] E Estimate 2018 [place] [address] 6:13am Anisocytosi November 1+ [facility], [address] [place] [address] 36 E s 2018 Jade [place] [address] 6:13am Macrocytosi April 22 [facility], [address] [place] [address] 36 E s 2018 Jade MAR[place] 36826 6:13am Troponin I April 0.06 ng/ml 0.00-0.06 *ALERT* High [facility], [address] [place] [address] 36 E 2018 levels of Jade Pearson 9:47pm Biotin can falsely depress Troponin results.Many dietary supplements promoted for hair,skin, and nail benefits contain biotin levels up to 650 times the recommended daily intake of biotin. In addition to dietary supplements, Biotin is occasionally prescribed for medical conditions.0.0 4 - 0.49 is an Indeterminate ZoneLevels in this range can be consistent with the following conditions:Tra dewey Critically ill Patients Suazo > 30%TBSACHF Hypothyroidism AmyloidosisCVA Hypertension Postop SurgeryAtrial Fib. Hypotension Vital Exhaust.Sepsis Pulmonary Embolism Renal FailureMyocard itis Acute Neurological Disease Rhabdomyolysis Sodium April 137 mmol/L 136-145 [facility], [address] [place] [address] 36 E Level 2018 Jade Palomares31 6:13am Potassium April 4.6 mmoL/L 3.5-5.1 [place] [address] E Level 2018 Jade MAR[place] [address] 6:13am Chloride April 105 mmol/L 98-107 [facility], [address] [place] [address] E Level 2018 Jade [place] 64281 6:13am Carbon April 31 mmol/L 21.0-32.0 [facility], [address] [place] [address] 36 E Dioxide 2018 Jade Palomares31 Level 6:13am Anion Gap April 5.6 mEq/L 5-15 [facility], [address] [place] [address] E 2018 Jade [place] [address] 6:13am Blood Urea April 11 mg/dL 7-18 [place] [address] E Nitrogen 2018 Jade [place] [address]130 6:13am Creatinine April 0.77 mg/dL 0.70-1.30 [facility], [address] [place] [address] E 2018 Jade [place] [address]95 6:13am Estimated November 66 mL/min 0-300 [facility], [address] [place] [address] 36 E Creatinine 2018 Antoine MAR[place] 378[address] Clearance 6:13am Estimated November 118 ML/MIN >59 [facility], [address] [place] [address] 36 E GFR 2018 Jade MARX [address] ( 6:13am Samoan) Estimat April 97 ml/min >59 [facility], [address] [place] [address] 36 E Glomerular 2018 Antoine MAR[place] [address] Filtration 6:13am Rate Glucose April 138 mg/dL 74-106 [facility], [address] [place] [address] 36 E Level 2018 [place] [address] 6:13am Lactate April 1.3 mmol/L 0.4-2.0 [facility], [address] [place] [address] E 2018 [place] [address] 2:57pm Calcium April 8.3 mg/dL 8.5-10.1 [facility], [address] [place] [address] E Level 2018 J[place] [address] 6:13am Magnesium April 2.0 mg/dL 1.4-2.2 [facility], [address] [place] [address] 36 E Level 2018 [place] [address] 6:13am Total April 0.7 mg/dL 0.2-1.0 [facility], [address] [place] [address] 36 E Bilirubin 2018 Jade MAR[place] [address] 2:15pm Aspartate April 20 U/L 15-37 [facility], [address] [place] [address] 36 E Amino 2018 Jade [place] [address] Transf 2:15pm (AST/SGOT) Alanine April 21 U/L 12-78 [facility], [address] [place] [address] 36 E Aminotransf 2018 [place] [address] erase 2:15pm (ALT/SGPT) Total April 7.8 gm/dL 6.4-8.2 [facility], [address] [place] [address] 36 E Protein 2018 Jade MARX 13678 2:15pm Albumin April 4.0 gm/dL 3.4-5.0 [facility], [address] [place] [address] 36 E 2018 Jade [place] [address] 2:15pm Globulin November 3.8 gm/dl 1.3-3.2 [facility], [address] [place] [address] 36 E 2018 [place] [address] 2:15pm Albumin/Kathya November 1.1 1.1-1.8 [facility], [address] [place] [address] 36 E bulin [place] 2018 [place] [address] 2:15pm Alkaline November 147 U/L 46-116 [facility], [address] [place] [address] 36 E Phosphatase 2018 [place] [address] 2:15pm Adenovirus November Not NotDetected [facility], [address] [place] [address] 36 E (PCR) 2018 [place] [address] 12:52pm Coronavirus November Not NotDetected [facility], [address] [place] [address] E Type HKU1 2018 [place] [address] (PCR) 12:52pm Coronavirus November Not NotDetected [facility], [address] [place] [address] E Type NL63 2018 [place] [address] (PCR) 12:52pm Coronavirus November Not NotDetected [facility], [address] [place] [address] E Type 229E 2018 [place] [address] (PCR) 12:52pm Coronavirus November Not NotDetected [facility], [address] [place] [address] E Type OC43 2018 [place] [address] (PCR) 12:52pm Human November Not NotDetected [facility], [address] [place] [address] 36 E Metapneumov 2018 [place] [address] irus (PCR) 12:52pm Enterovirus November Not NotDetected [facility], [address] [place] [address] 36 E /Rhinovirus 2018 [place] [address] (PCR) 12:52pm Influenza November Not NotDetected [facility], [address] [place] [address] E Virus Type 2018 [place] [address] A (PCR) 12:52pm Influenza November Not NotDetected [facility], [address] [place] [address] E Type A (H1) 2018 [place] [address] (PCR) 12:52pm Influenza November Not NotDetected [facility], [address] [place] [address] E Type A 2018 [place] [address] (H1N1/09) 12:52pm (PCR) Influenza November Not NotDetected [facility], [address] [place] [address] E Type A (H3) 2018 [place] [address] (PCR) 12:52pm Influenza November Not NotDetected [facility], [address] [place] [address] E Virus Type 2018 [place] [address] B (PCR) 12:52pm Parainfluen November Not NotDetected [facility], [address] [place] [address] E za Type 1 2018 [place] [address] (PCR) 12:52pm Parainfluen November Not NotDetected [facility], [address] [place] [address] E za Type 2 2018 [place] [address] (PCR) 12:52pm Parainfluen November Not NotDetected [facility], [address] [place] [address] E za Type 3 2018 [place] [address] (PCR) 12:52pm Parainfluen November Not NotDetected [facility], [address] [place] [address] E za Type 4 2018 [place] [address] (PCR) 12:52pm Respiratory November Not NotDetected [facility], [address] [place] [address] E Syncytial 2018 [place] [address] Virus (PCR) 12:52pm Bordetella November Not NotDetected [facility], [address] [place] [address] E pertussis 2018 [place] [address] DNA (PCR) 12:52pm Chlamydophi November Not NotDetected [facility], [address] [place] [address] E la 2018 [place] [address] pneumoniae 12:52pm (PCR) Mycoplasma November Not NotDetected [facility], [address] [place] [address] E pneumoniae 2018 [place] [address] (PCR) 12:52pm Arterial November 7.25 mmol/L 7.35-7.45 [facility], [address] [place] [address] E Blood pH 2018 [place] [address] 2:04am Arterial April 65.9 mmhg 35.0-45.0 [facility], [address] [place] [address] 36 E Blood 2018 [place] [address] Partial 2:04am RESULT Pressure CO2 Results called to:[] by Kaylene Myles, RTat 0210 on 05/12/19 Arterial November 118.2 mmhg 80-100 [facility], [address] [place] [address] 36 E Blood 2018 [place] [address] Partial 2:04am Pressure O2 Arterial November 28.0 mmhg 22.0-26.0 [facility], [address] [place] [address] E Blood HCO3 2018 [place] [address] 2:04am Arterial November 30.0 mmhg 23-27 [facility], [address] [place] [address] E Blood Total 2018 [place] [address] CO2 2:04am Arterial April 0.7 mmol/L -2.4-2.3 [facility], [address] [place] [address] E Blood Base 2018 [place] [address] Excess 2:04am Arterial November 98 % 90-100 [facility], [address] [place] [address] 36 E Blood 2018 [place] [address] Oxygen 2:04am Saturation Blood Gas November 35 % [facility], [address] [place] [address] 36 E Oxygen 2018 [place] [address] Percent 2:04am Blood Gas April 8 [facility], [address] [place] [address] E PEEP 2018 [place] [address] 2:04am Hamzah Test April Acceptable [facility], [address] [place] [address] E 2018 [place] [address] 2:04am Blood Gas April Right [facility], [address] [place] [address] E Specimen 2018 [place] [address] Source 2:04am Diagnostic Imaging Reports Report Dictated Date/Time Dictated By Status Radiology Report April 19, 2019 Hamzah Hamilton MD completed 10:21am [place] [address] [address] [place] [address] Nuclear Medi cine Report Sig keyona Patient: Santosh Hopkins MR#: [id number] : 1940 Acct:[id number] Age/Sex: 79 / M ADM Date: 9 Loc: RAD Attending Dr: Zahira Cotton APRN Ordering Physician: Zahira Cotton APRN Date of Service: 04/19/19 Procedure(s): NM michele perf SPECT rest & s tr Accession Number(s): [id number] cc: Yobany Stoll MD; Hamzah Hamilton MD~ APPROVED REPORT -------- ------ Exam: Nuclear Stress Test Indication: SOB, High cholesterol, 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 With Lexiscan, patient denied any compl aint of chest pain. Cardiac Stress and Resting SPECT Images : Cardiac Stress and Resting SPECT images were obtained using technetium 99m Myoview 31.0 mCi stress and 10.78 mCi at rest. Ejection fraction is normal at 65%. A fixed defect is present within the in feroapical region. This becomes more prominent on the rest imag es. These findings are consistent with isch emic changes with an area of infarction at the apex with prominent d iaphragmatic attenuation in the inferior wall Conclusion: Ejection fraction is normal at 65%. A fixed defect is present within the in feroapical region. This becomes more prominent on the rest imag es. These findings are consistent with isch emic changes with an area of infarction at the apex with prominent d iaphragmatic attenuation in the inferior wall No reversible defects are evident Electronically signed by : Hamzah Hamilton MD 04/20/2019 16:03:49 Radiology Report May 11, 2019 Hamzah Hamilton MD completed 3:13pm [facility] [address] [place] [facility] [address] [place] [id number] XRay R eport Sig keyona Patient: Santosh Hopkins MR#: [id number] : 1940 Acct:[id number] Age/Sex: 79 / M ADM Date: 9 Loc: ER Attending Dr: Ordering Physician: Shahab Kidd MD Date of Service: 05/11/19 Procedure(s): XR chest portable Accession Number(s): [id number] cc: Yobany Stoll MD; Hamzah Hamilton MD~ PROCEDURE: XR CHEST PORTABLE CLINICAL HISTORY: SOA Severe shortness of air, COPD, former s moker COMPARISON: CXR CHEST(2 VIEWS-NOT PORT ABLE) from 01/01/2017 CXR CHEST(2 VIEWS-NOT PORTABLE) from 04/20/2017 CXR2V XR chest 2V from 10/04/[address] chest wo con from 01/12/2019 FINDINGS: Bipolar pacemaker is present left subcl gilmar. Unremarkable heart size. COPD with chronic changes. No lobar co nsolidation or. No acute bony findings. IMPRESSION: COPD. No change with no acute finding Dictated by: Hamzah Hamilton MD 05/11/2019 15:19 Electronically signed by Hamzah Hamilton in [place] 05/11/2019 15:19 Radiology Report May 12, 2019 Hamzah Hamilton MD completed 6:33am [place] [id number] [facility] [address] [place] [id number] XRay R eport Sig keyona Patient: Santosh Hopkins MR#: [id number] : 1940 Acct:[id number] Age/Sex: 79 / M ADM Date: 9 Loc: [facility] 214-[address]: Yobany Stoll MD Ordering Physician: Shahab Kidd MD Date of Service: 05/12/19 Procedure(s): XR chest portable Accession Number(s): [id number] cc: Yobany Stoll MD; Hamzah Hamilton MD~ PROCEDURE: XR CHEST PORTABLE CLINICAL HISTORY: sob Shortness of breath COMPARISON: CXR CHEST(2 VIEWS-NOT PORT ABLE) from 04/20/2017 CXR2V XR chest 2V from 10/04/[address] chest wo con from 01/12/2019 XR CHEST PORTABLE from 05/11/2019 FINDINGS: Bipolar pacemaker remains in place. COPD. Patchy density is present in the right lung base and may be due to an area of infiltrate with chron ic changes superimposed. No acute bony findings. No acute bony abnormalities. IMPRESSION: COPD with possible right basilar infilt rate Dictated by: Hamzah Hamilton MD 05/12/2019 07:28 Electronically signed by Hamzah Hamilton in [place] 05/12/2019 07:28 Chief Complaint and Reason for Visit Chief Complaint follow up soa r06.02 cws test f/u F/U 6 weeks sob r06.02 cws test f/u cath cath f/u COPD Exacerabation Reason for Visit Acute exacerbation of chroni c obstructive airways disease Acute hypercapnic respirator y failure Acute on chronic respiratory failure with hypoxemia Pneumonia Encounters Encounter Location(s) Arrival/Admit Date Discharge/Depart Date Provider(s) Departed [facility] Physician February 15, 2019 February 15, 2019 Trish calderón Physician/[facility]Cardiology 1:43pm 3:14pm Patino -[facility] [place] , 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 Visit Registered [facility] Physician February 18, 2019 Megan [facility] Group-Respirator 3:04pm Patino-Fe [facility]ando [facility] Therapy , 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 Departed [facility] Physician March 01, March 01, 2019 Latonia dolan Physician/[facility] 2018 1:16pm 2:21pm Patino -[facility]is [facility] , 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 Visit Registered [facility] Physician April 12, 2019 Esequiel Monroy Physician/[facility]-Specialty 11:24am MD Rao veena Office Clinic [facility] Visit Departed [facility] Physician April 12, 2019 April 12, 2019 As breezy Cotton , Physician/[facility] 1:13pm 2:30pm 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 [facility] Visit Registered [facility] Physician April 19, 2019 Zahira riley , Clinical Group-Radiology 6:09am 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 Departed [facility] Physician April 26, 2019 April 26, 2019 Elvia Lo Physician/[facility]Cardiology 1:50pm 2:56pm PA veena Office -[place] Visit Registered [facility] Physician May 02, May 02, 2019 Yokasta toledo Inpatient Group-Cardiology 2018 7:04am 12:45pm MD Aura Keen Departed [facility] Physician May 10, May 10, 2019 Juan José Cotton , Physician/[facility]-Cardiology 2018 9:23am 10:43am 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 ve[facility] Visit Admitted [facility] Physician May 12, Yobany Berg on Inpatient Group-Second 2018 7:30am , Floor Registered [facility] Physician May 12, Shahab Alexis Inpatient Group- 2018 3:15pm MD Marit Recent Diagnosis Onset Date Acute exacerbation of chronic obstructive airways dise ase Acute hypercapnic respiratory failure Acute on chronic respiratory failure with hypoxemia Pneumonia Assessments Diagnosis Onset Date Resolution Status Acute exacerbation of acute chronic obstructive airways disease Acute hypercapnic acute respiratory failure Acute on chronic acute respiratory failure with hypoxemia Pneumonia acute Functional Status Observation Response Date Recorded Oral Care Ability Independent May 11, 2019 6:29pm Bathing Ability Assistance x1 May 11, 2019 6:29pm Eating (Feeding) Ability Independent May 11, 2019 6:29pm Toileting Ability Assistance X1 May 11, 2019 6:29pm Ambulation Ability Assistance x1 May 11, 2019 6:29pm Functional status ambulatory April 28, 2019 7 :22am Functional status ambulatory April 12, 2019 2 :13pm Functional status ambulatory May 10, 2019 11:16am Functional status ambulatory March 01, 2019 2:33pm Functional status ambulatory February 15, 2019 4: 33pm Goals Ambulatory Goals Patient verbalizes understanding of dise ase process/healthy behaviors. Patient to follow plan of care. Education provi ded. 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 2017 Vaccine, 23 valent Zoster May, 2018 Zoster December 21, Recombinant 2019 Zoster May 25, Recombinant 2018 Zoster November 29, Recombinant 2018 Shingles March 26, (Zoster) 2015 Mental Status Observation Response Date Recorded Comprehension Ability No Impairment May 12 3:00pm Able to Read Yes May 11, 2019 6:29pm Able to Write Yes May 11, 2019 6:29pm Eye Contact Maintains Eye Contact May 11 201 9 6:29pm Oral Expression Ability No Impairment May 11 019 6:29pm Medical Equipment No Medical Equipment Information available Insurance Providers Guarantor Santosh Hopkins Address [address] [place] [address] Contact Info. Home Phone: Payer Policy Id Coverage Id Subscriber's Subscriber Effective Expi ration Name Id Date Date Aetna [id number] Santosh Ojeda [id number] [facility] Aetna Other [id number] Santosh Ojeda [id number] [employer] [id number] Santosh Ojeda [id number] Benefit Plan Sandeep Medicare [id number] Santosh Ojeda [id number] Sandeep Medicare B [id number] Santosh Ojeda [id number] Sandeep Self Pay Self N/A Plan of Treatment Pt here for cath f/u. Cath shows mild non-flow limiting disease, normal EF, normal LEVDP. CAD is stable. Denies CP or pressure. SOB is chronic. Pt reports only have 40% of lung functio due to COPD. This is stable. Pt states he feels cool all of the time. No skin color changes in extremities notes. BP is high. On recheck BP is 130/62. no changes. LDL goal is < 55, On statin. COPD is present and managed by pulmonology. CINTHIA is present, on CPAP. Afib is a-pacing. On Sotalol. QTc is [address] and followed in our clinic. D/L up to date. EKG is a-pacing with a rate of 73. Pt stable from a CV standpoint. pt to continue with pulmonology for SOB. Future Tests Future scheduled test information is unavailable Pending Tests Pending diagnostic test information is unavailable Future Visits Future appointment information is unavailable Referrals to Other Providers Reason for Referral Start Provider Provider Contact Provider Address Referral Date Information Admission to [facility] May 12 Julito 2019 [facility] Future Procedures Future procedure information is unavailable Future Medications Future medication information is unavailable Patient Instructions High Triglycerides Chronic Obstructive Pulmonary Disease Atrial Fibrillation Acute Respiratory Distress Syndrome Heart-Healthy Diet Fat-Restricted Diet Effectiveness of Diets for Weight Loss DI for Acute Bronchitis DI for Dependent Edema How to Count Respirations Respiratory Failure Chronic Obstructive Pulmonary Disease Acute Respiratory Distress Syndrome DI for Acute Bronchitis How to Count Respirations Respiratory Failure High Triglycerides Heart-Healthy Diet Fat-Restricted Diet Effectiveness of Diets for Weight Loss How to Quit Tobacco Products High Triglycerides Atrial Fibrillation Heart-Healthy Diet Fat-Restricted Diet Effectiveness of Diets for Weight Loss DI for Shortness of Breath High Triglycerides Chronic Obstructive Pulmonary Disease Atrial Fibrillation Heart-Healthy Diet Balanced Diet Fat-Restricted Diet Effectiveness of Diets for Weight Loss DI for Shortness of Breath How to Count Respirations Respiratory Failure Social History Assigned Sex Male Vital Signs Vital Reading Result Reference Range Collection Date/ Time Height 175.26 cm February 15 2:24pm Weight 80.28 kg February 15 2:24pm Heart Rate 70 /min 60-90 February 15 2:24pm Oxygen saturation by 94 % 95-100 January Pulse oximetry 2:24pm BP Systolic 123 mm[Hg] 110-140 February 15 2:24pm BP Diastolic 67 mm[Hg] 60-90 February 15 2:24pm BMI (Body Mass Index) 26.1 kg/m2 January 2:24pm Height 175.26 cm March 01, 2019 1:33pm Weight 79.83 kg March 01, 2019 1:33pm Heart Rate 70 /min 60-90 March 01, 2019 1:33pm Oxygen saturation by 93 % 95-100 February 202018 Pulse oximetry 1:33pm BP Systolic 95 mm[Hg] 110-140 March 01, 2019 1:33pm BP Diastolic 56 mm[Hg] 60-90 March 01, 2019 1:33pm BMI (Body Mass Index) 25.9 kg/m2 March 01, 2019 1:33pm Height 175.26 cm April 12 1:53pm Weight 83.00 kg April 12 1:53pm Heart Rate 69 /min 60-90 April 12 1:53pm Oxygen saturation by 95 % 95-100 March Pulse oximetry 1:53pm BP Systolic 112 mm[Hg] 110-140 April 12 1:53pm BP Diastolic 64 mm[Hg] 60-90 April 12 1:53pm BMI (Body Mass Index) 27.0 kg/m2 April 122018 1:53pm Height 175.26 cm April 26 2:24pm Weight 82.55 kg April 26 2:24pm Heart Rate 70 /min 60-April 26 2:24pm Oxygen saturation by 96 % 95-100 April Pulse oximetry 2:24pm BP Systolic 122 mm[Hg] 110-140 April 26 2:24pm BP Diastolic 53 mm[Hg] 60-90 April 26 2:24pm BMI (Body Mass Index) 26.9 kg/m2 April 262018 2:24pm Height 175.26 cm May 02, 2 019 7:16am Weight 82.55 kg May 02, 2 019 7:16am Body Temperature 98 [degF] 97.6-99.6 May 02, 2019 8:12am Heart Rate 70 /min -May 02, 2 019 12:10pm Respiratory rate 16 /min -May 02, 2019 12:10pm Oxygen saturation by 92 % 95-100 May 022018 Pulse oximetry 12:10pm BP Systolic 129 mm[Hg] 110-140 May 02, 2 019 12:10pm BP Diastolic 75 mm[Hg] 60-90 May 02, 2 019 12:10pm BMI (Body Mass Index) 26.9 kg/m2 April 222018 7:16am Height 175.26 cm May 10, 2 019 10:10am Weight 82.55 kg May 10, 2 019 10:10am Heart Rate 70 /min -May 10, 2 019 10:10am Oxygen saturation by 94 % 95-100 May 102018 Pulse oximetry 10:10am BP Systolic 130 mm[Hg] 110-140 May 10, 2 019 11:15am BP Diastolic 62 mm[Hg] 60-90 May 10, 2 019 11:15am BMI (Body Mass Index) 26.9 kg/m2 April 222018 10:10am Height 175.26 cm May 12, 2 019 5:20am Weight 78.66 kg May 12, 2 019 5:20am Body Temperature 97.6 [degF] 97.6-99.6 May 12, 2019 11:18am Heart Rate 70 /min 60-90 May 12, 2 019 11:18am Respiratory rate 19 /min 12-May 12, 2019 11:18am Oxygen saturation by 95 % 95-100 May 122018 Pulse oximetry 11:18am BP Systolic 125 mm[Hg] 110-140 May 12, 2 019 11:18am BP Diastolic 62 mm[Hg] 60-90 May 12, 2 019 11:18am BMI (Body Mass Index) 25.6 kg/m2 April 232018 5:20am Inhaled oxygen 28 % May 12, 2 019 concentration 2:05pm
[2019-05-13 06:34] LABS: Albumin Level 2.9 gm/dL (3.4-5.0); Albumin/Globulin Ratio 1.1 (1.1-1.8); Anion Gap 4.1 mEq/L (5-15); Basophils % 0.2 % (0.1-2.0); Bilirubin,Total 0.4 mg/dL (0.2-1.0); Eosinophils # 0.1 K/mm3 (0.0-0.4); Eosinophils % 0.6 % (0.1-12.0); Globulin 2.7 gm/dl (1.3-3.2); Hematocrit 35.7 % (42.0-52.0); Hemoglobin 11.6 g/dL (14.1-18.0); Lymphocytes # 1.4 K/mm3 (0.7-4.5); Lymphocytes % 11.1 % (10-50); Mean Corpuscular HGB Conc 32.4 g/dL (31.8-35.4); Mean Corpuscular Volume 106.6 fl (80-94); Mean Platelet Volume 8.7 fl (7.4-10.4); Monocytes # 0.8 K/mm3 (0.1-1.0); Monocytes % 5.8 % (1.7-9.3); Neutrophils # 10.6 K/mm3 (1.8-7.8); Neutrophils % 82.2 % (37.0-80.0); Platelet Count 210 K/mm3 (142-424); Red Blood Count 3.35 M/mm3 (4.60-6.20); Red Cell Distribution Width 14.2 % (11.5-17.5); Total Protein,Serum 5.6 gm/dL (6.4-8.2); White Blood Count 12.9 K/mm3 (4.8-10.8)
--- NOTE | 2019-05-13 08:12 | Electrocardiograph Report ---
APPROVED REPORT Exam: Resting ECG HR:75 bpm ECG Measurements Heart Rate 75 AXES CO 126 P 62 QRSd 82 QRS 72 QT 406 T64 QTc 453 <Conclusion> Normal sinus rhythm Nonspecific ST abnormality Abnormal ECG Electronically signed by : Yobany Stoll, 05/13/2019 08:12:15
--- NOTE | 2019-05-13 08:41 | Discharge Summary ---
General - General Admission date:: 05/12/19 Discharge date: 05/13/19 HPI HPI: 79-year-old gentleman with severe COPD on oxygen at home who presented to the ER due to worsening shortness of breath, cough, congestion. Has any fabienne fevers at home, chest pain, nausea, vomiting. Uses nebulizer 3-4 times a day at home but is not helping with his shortness of breath. Initial work-up in the ER showed concern for COPD with infiltrate in the right lower lobe/right hilar region on x-ray, hypoxemia on a blood gas and hypercarbia with respiratory acidosis of pH below 7.2. He was noted to have an elevated white count and admitted for hypoxemic and hypercarbic respiratory failure in the setting of suspected pneumonia. Started on antibiotics and steroids. Getting breathing treatments through the night. Initially required Vapotherm overnight with some improvement in his respiratory status. On interview this morning is in mild distress on interview on 2 to 3 L of supple mental oxygen through nasal cannula. Family at bedside stating he looks a little better but still ill compared to his baseline. 14 point review of systems reviewed. Positives and negatives as per above. Hospital Course Hospital Course: Mr. Hopkins was admitted for acute hypoxemic and hypercarbic respiratory failure in the setting of pneumonia and COPD. Initiated on IV antibiotics and steroids. Additionally received aggressive nebulizer treatment. Patient symptoms gradually improved with significant improvement in respiratory status. Able to transition to p.o. antibiotics and steroids to complete course for treatment of pneumonia. Assess patient's needs for oxygen and plan to continue oxygen at home continuously. Recommended he continue nebulizers and transitioned to Trelegy as a once daily inhaler to combine 2 of his current inhalers and decrease the number of doses he had to take a day. Will monitor for improvement at follow-up. Denies COTO, SOA, CP, N/V/D, lethargy, fevers. Tolerating regular diet. Medicall y stable for discharge home Objective Vital signs: Temp Pulse Resp BP Pulse Ox 98.3 F 70 22 172/86 H 93 L 05/13/19 08:00 05/13/19 08:00 05/13/19 08:00 05/13/19 08:00 05/13/19 08:00 mild distress Comments: baseline - *Routine HEENT Exam Head: Present: normocephalic, atraumatic Eye: Present: EOMI ENT: Present: mucous membranes moist. Absent: dentition normal - *Routine Neck Exam Present: supple. Absent: JVD - *Routine Respiratory Exam Present: prolonged expiratory phase, wheezes, distant breath sounds. Absent: rhonchi, crackles - *Routine Cardiovascular Exam Present: RRR, Normal S1. Absent: murmur - *Routine Abdominal Exam Present: soft, normoactive bowel sounds. Absent: tenderness - *Routine Rectal Exam Patient deferred: visual exam - *Routine Exam Patient deferred: penile exam - *Routine Extremities Exam Absent: cyanosis, clubbing, edema - *Routine Skin Exam Present: intact. Absent: cyanosis, erythema - *Routine Neurological Exam Present: alert oriented x 2 Results Labs on day of discharge: Labs from last 24 hours 05/13/19 05/13/19 05/12/19 06:03 06:03 12:52 WBC 12.9 H RBC 3.35 L Hgb 11.6 L Hct 35.7 L MCV 106.6 H MCH 34.5 H MCHC 32.4 RDW 14.2 Plt Count 210 MPV 8.7 Neut % (Auto) 82.2 H Lymph % (Auto) 11.1 [place] % (Auto) 5.8 Eos % (Auto) 0.6 Baso % (Auto) 0.2 Neut # (Auto) 10.6 H Lymph # (Auto) 1.4 [place] # (Auto) 0.8 Eos # (Auto) 0.1 Baso # (Auto) 0.0 Sodium 141 Potassium 4.1 Chloride 108 H Carbon Dioxide 33 H Anion Gap 4.1 L BUN 17 D Creatinine 0.79 Estimated Creat Clear 68 Estimated GFR 94 Est GFR ( Amer) 114 Glucose 89 D Calcium 8.0 L Magnesium 2.0 Total Bilirubin 0.4 AST 16 ALT 18 Alkaline Phosphatase 94 Total Protein 5.6 L D Albumin 2.9 L Globulin 2.7 Albumin/Globulin Ratio 1.1 Chlamy pneumoniae PCR Not detected Adenovirus (PCR) Not detected B. pertussis DNA (PCR) Not detected Coronavirus OC43 (PCR) Not detected Coronavirus HKU1 (PCR) Not detected Coronavirus 229E (PCR) Not detected Coronavirus NL63 (PCR) Not detected Human Metapneumovir PCR Not detected Influenza A (H1) PCR Not detected Influ A (H1N1/09) PCR Not detected Influenza A (H3) PCR Not detected Influenza Type A (PCR) Not detected Influenza Type B (PCR) Not detected M. pneumoniae (PCR) Not detected Parainfluenza 1 (PCR) Not detected Parainfluenza 2 (PCR) Not detected Parainfluenza 3 (PCR) Not detected Parainfluenza 4 (PCR) Not detected RSV (PCR) Not detected Entero/Rhino (PCR) Not detected DS: Diagnosis - Discharge Diagnosis (1) Pneumonia Status: Acute (2) COPD exacerbation Status: Acute (3) Hyperlipidemia Status: Chronic (4) Hypertensive heart disease Status: Chronic (5) PAF (paroxysmal atrial fibrillation) Status: Chronic (6) Tobacco dependence syndrome Status: Chronic (7) Acute hypercapnic respiratory failure Status: Acute (8) Acute on chronic respiratory failure with hypoxemia Status: Acute Discharge Plan - Patient Discharge Instructions ACTIVITY: Ambulate as tolerated DIET: continue same diet Patient Instructions: Pneumonia-Adult, Chronic Obstructive Pulmonary Disease - Follow up Plan Follow up with: Esequiel Santamaria MD [Staff Physician] - 05/24/19 12:45 pm Disposition: Home, Self-Skilled Nursing Medications: Home Medications Medication Instructions Recorded Confirmed Type aspirin 325 mg tablet 162.5 mg PO DAILY tab 07/24/17 05/12/19 History ajbjjgfqjfti-sczxqsyf-olvqzy tablet 1 tab PO ONCE 07/24/17 05/11/19 History montelukast 10 mg tablet 10 mg PO DAILY tab 07/28/17 05/11/19 History Atorvastatin Calcium [Lipitor 20mg 20 mg PO HS 10/04/18 05/12/19 History Tablet] sotalol 120 mg tablet 120 mg PO Q12H #180 tab 03/18/19 05/11/19 Rx omeprazole 40 mg capsule,delayed 40 mg PO DAILY #90 cap 04/15/19 05/11/19 Rx release Glycopyrrolate/Formoterol Fum 2 puffs IH BID 05/12/19 05/12/19 History [Bevespi Aerosphere Inhaler] Trazodone HCl [Desyrel 50mg tablet] 50 mg PO HSP PRN 05/12/19 05/12/19 History Cefdinir [Omnicef 300mg Capsule] 600 mg PO DAILY 7 Days #14 cap 05/13/19 Rx Fluticasone/Umeclidin/Vilanter 1 each IH DAILY 30 Days #1 device 05/13/19 Rx [Trelegy Ellipta 100-62.5-25] Ipratropium/Albuterol Sulfate 3 ml IH QID 30 Days ampul.neb 05/13/19 Rx [Duoneb 3mL neb] predniSONE [Deltasone 10mg tablet] 40 mg PO DAILY 3 Days #12 tab 05/13/19 Rx Prescriptions/Medication Reconciliation: New Cefdinir [Omnicef 300mg Capsule] 600 mg PO DAILY 7 Days #14 cap Fluticasone/Umeclidin/Vilanter [Trelegy Ellipta 100-62.5-25] 1 each IH DAILY 30 Days #1 device predniSONE [Deltasone 10mg tablet] 40 mg PO DAILY 3 Days #12 tab Continued aspirin 325 mg tablet 162.5 mg PO DAILY tab aajqbwrxewbu-mgznauvs-hhwjym tablet 1 tab PO ONCE montelukast 10 mg tablet 10 mg PO DAILY tab sotalol 120 mg tablet 120 mg PO Q12H #180 tab omeprazole 40 mg capsule,delayed release 40 mg PO DAILY #90 cap Glycopyrrolate/Formoterol Fum [Bevespi Aerosphere Inhaler] 2 puffs IH BID Atorvastatin Calcium [Lipitor 20mg Tablet] 20 mg PO HS Trazodone HCl [Desyrel 50mg tablet] 50 mg PO HSP PRN PRN Reason: Insomnia Ipratropium/Albuterol Sulfate [Duoneb 3mL neb] 3 ml IH QID 30 Days ampul.neb Discontinued fluticasone furoate 200 mcg-vilanterol 25 mcg/dose inhalation powder 1 puff IH DAILY 30 Days #60 each - Problem Reconciliation Problems Reviewed?: Yes
== END 2019-05-13 12:20 | disposition home or self-care (01) | DRG 193 ==
LOC: 2ND 14:25 → ER 14:25 → 2ND 18:02
PROVIDERS: ADMIT Emergency Medicine; ATTEND Internal Medicine Adolescent Medicine
CPT/HCPCS: 36415; 71010; 71045; 80048; 80053; 82803; 83605; 83735; 84484; 85007; 85025; 87040; 87070; 87077; 87186; 87205; 87486; 87581; 87633; 87798; 93005; 94640; 94660; 94760; 94761; 96365; 96367; 96375; 99285; G0378; J0456

== ENCOUNTER 2019-05-28 02:08 | Observation (INO) ==
--- NOTE | 2019-05-28 02:05 | Emergency Department Note ---
ED Disposition Clinical Impression: COPD exacerbation Disposition: Admitted as Observation Condition on Discharge: Fair Referrals: Yobany Stoll MD [Primary Care Provider] - - Critical Care Critical Care Time: No Attestation: On , the high probability of a clinically significant, sudden or life thre atening deterioration of the following system(s) required my full and direct attention, intervention and personal management. The time I documented below is in addition to time spent performing reported procedures but includes the following listed in this critical care notation. Medical Decision Making - Jamie Inquiry Pt receiving controlled substance: No Vital Signs: 05/28/19 02:04 05/28/19 02:46 05/28/19 03:15 Temperature 98.2 F Temperature Source Oral Pulse Rate 84 Pulse Rate [Left Radial] 87 84 Respiratory Rate 16 20 Blood Pressure [Right Arm] 129/80 113/82 Blood Pressure Mean [Right Arm] 96 92 Blood Pressure Source [Right Arm] Automatic Cuff Blood Pressure Position [Right Arm] Sitting 02 Sat by Pulse Oximetry 96 95 Oxygen Delivery Method Room Air Nasal Cannula Oxygen Flow Rate (LPM) 3 - Lab Data Lab Results 05/28/19 01:44: WBC 21.3 H*, RBC 4.58 L, Hgb 15.5, Hct 48.1, MCV 105.2 H, MCH 33.9 H, MCHC 32.2, RDW 13.3, Plt Count 302, MPV 8.5, Neut % (Auto) 87.1 H, Lymph % (Auto) 6.3 L, [place] % (Auto) 4.4, Eos % (Auto) 1.8, Baso % (Auto) 0.4, Neut # (Auto) 18.6 H, Lymph # (Auto) 1.3, [place] # (Auto) 0.9, Eos # (Auto) 0.4, Baso # (Auto) 0.1, Total Counted 100, Neutrophils % (Manual) 81 H, Band Neutrophils % 11.0 H, Lymphocytes % (Manual) 5 L, Monocytes % (Manual) 2, Eosinophils % (Manual) 1, Platelet Estimate Normal, Macrocytosis 2+ 05/28/19 01:44: Sodium 139, Potassium 4.4, Chloride 99, Carbon Dioxide 32, Anion Gap 12.4, BUN 14, Creatinine 0.89, Estimated Creat Clear 64, Estimated GFR 82, Est GFR ( Amer) 100, Glucose 99, Calcium 8.8, Total Bilirubin 1.2 H, AST 15, ALT 23, Alkaline Phosphatase 133 H, Troponin I < 0.02, Total Protein 7.4 D, Albumin 3.8, Globulin 3.6 H, Albumin/Globulin Ratio 1.1 05/28/19 02:28: Specimen Source Left radial, O2 % 32%, 3lpm nc, ABG pH 7.37, ABG pCO2 50.0 H, ABG pO2 66.0 L, ABG HCO3 28.4 H, ABG Total CO2 29.9 H, ABG O2 Saturation 93, ABG Base Excess 3.1 H, Hamzah Test Acceptable 05/28/19 02:45: Lactate 1.3 Result diagrams: 05/28/19 01:44 05/28/19 01:44 Orders (Tests/Meds): ED MEDICATIONS Generic Name Dose Route Start Last Admin Trade Name Freq PRN Reason Stop Dose Admin Ceftriaxone Sodium 1 gm/ 50 mls @ 100 mls/hr 05/28/19 03:30 05/28/19 03:47 Sodium Chloride IV 06/11/19 03:29 100 mls/hr Q24H SANTANA Administration Protocol Sodium Chloride 3 ml 05/28/19 02:29 05/28/19 03:14 Sodium Chloride 3% 15ml [facility] 06/27/19 02:28 3 ml ONCE PRN Administration INDUCE SPUTUM COLLECTION Discontinued Medications Generic Name Dose Route Start Last Admin Trade Name Freq PRN Reason Stop Dose Admin Albuterol/Ipratropium 3 ml 05/28/19 02:29 05/28/19 03:11 Duoneb 3ml [facility] 05/28/19 02:30 3 ml ONCE ONE Administration Azithromycin 500 mg/ Sodium 250 mls @ 250 mls/hr 05/28/19 03:26 05/28/19 04:05 Chloride IV 05/28/19 03:27 250 mls/hr ONCE ONE Administration Protocol ORDERS Category Date Time Status XR chest portable Stat Exams 05/28/19 02:28 Taken Troponin I Q3H Lab 05/28/19 05:30 Ordered Troponin I Q3H Lab 05/28/19 08:30 Ordered Urinalysis and Microscopic Stat Lab 05/28/19 03:43 Ordered Blood Culture Stat Micro 05/28/19 02:46 Received Sputum Culture & Gram Stain Stat Micro 05/28/19 02:29 Ordered - Radiology Data #1 Image(s): Chest Image Reviewed: Yes I reviewed the patient's radiology image COPD, pacemaker. Chronic increased markings in the bases, questionable minimal increase since last chest x-ray. No definite confluent infiltrate. Minimal blunting of the costophrenic angles. - ECG Data Tracing #1 EKG interpreted by Goldy Ivan MD: Rhythm: sinus Rate: 85 [place]: normal Ectopy: none Conduction: normal ST Segment Changes: none T Wave Changes: none Q Waves: none No evidence of acute ischemia or injury Baseline artifact and wander present, but I consider the EKG adequate for accura te interpretation. - Physician Consults Physician Consulted: Marti Stoll Time: 05:30 Reason -: Admission Comment/Response: Agrees to admit the patient to the hospital. We discussed the patient's clinical information, including history, exam, laboratory and radiology results and ED course. Per hospital procedure, I will write temporary bridge inpatient orders on the patient. Specific orders requested by the admitting physician: Continue antibiotics, nebulizer treatments, steroids General Adult HPI - General Stated complaint: SOB Time Seen by Provider: 05/28/19 02:22 - History of Present Illness HPI narrative: Brought in by ambulance for shortness of breath. Patient has COPD and states he is chronically short of breath, but worse since this afternoon. Notes that he was recently admitted May 12 for pneumonia. States that he has a chronic cough but cannot cough up any sputum, just gets it up into his throat. Denies fever. Had some chest pain this evening that lasted only for a minute or 2. Denies vomiting or diarrhea. States that he used a DuoNeb treatment before bed at about 1130 woke up at 130 short of air and used another treatment and then called for EMS. Administered Solu-Medrol 125 mg during transport. He wears oxygen at all times. At night he wears CPAP with oxygen. 5 duoneb treatments in past 24 hrs. He says he quit smoking about 6 weeks ago. - Related Data Home Medications Medication Instructions Recorded Confirmed aspirin 325 mg tablet 162.5 mg PO DAILY tab 07/24/17 05/28/19 sbcdcsaxeyrf-bpgvcyxm-vwelpc tablet 1 tab PO ONCE 07/24/17 05/28/19 montelukast 10 mg tablet 10 mg PO DAILY tab 07/28/17 05/28/19 Atorvastatin Calcium [Lipitor 20mg 20 mg PO HS 10/04/18 05/28/19 Tablet] Glycopyrrolate/Formoterol Fum 2 puffs IH BID 05/12/19 05/28/19 [Bevespi Aerosphere Inhaler] Trazodone HCl [Desyrel 50mg tablet] 50 mg PO HSP PRN 05/12/19 05/28/19 Fluticasone/Umeclidin/Vilanter 1 each IH DAILY 05/28/19 05/28/19 [Trelekandace Ellipta 100-62.5-25] Previous Rx's Medication Instructions Recorded sotalol 120 mg tablet 120 mg PO Q12H #180 tab 03/18/19 omeprazole 40 mg capsule,delayed 40 mg PO DAILY #90 cap 04/15/19 release Ipratropium/Albuterol Sulfate 3 ml IH QID 30 Days ampul.neb 05/13/19 [Duoneb 3mL neb] fluticasone propionate 50 2 spray INTRANASAL DAILY #36.4 g 05/16/19 mcg/actuation nasal spray,suspension nitroglycerin 0.4 mg sublingual 0.4 mg SUBLINGUAL Q5-15M PRN #25 05/16/19 tablet tab Allergies Allergy/AdvReac Type Severity Reaction Status Date / Time No Known Drug Allergies Allergy Unknown Verified 05/28/19 02:47 [facility] History - Hepatitis A Screen Attestation statement:: This patient has been screened for Hepatitis A risk factors. I have reviewed the patient's past medical history: Yes Medical History: Reports:: Arrhythmia, Asthma, Atrial Fibrillation, Chronic Obstructive Pulmonary Disease (COPD), Coronary Artery Disease, Gastroesophageal Reflux Disease(GERD), Hyperlipidemia, Hypertension, Internal Pacemaker Denies:: Cancer, Diabetes Mellitus Type 1, Diabetes Mellitus Type 2, MRSA, Seizures Other Medical History: Reports: Other Comment: CINTHIA Other Surgeries: Yes: Cardiac Catheterization, Colonoscopy, Coronary Stent, Hernia Repair, Pacemaker, Other (Back Sx, LHC-stent, Loop recorder placed) Amputation: No Fractures: No Comment: Back sx - Social History Smoking Status: Former smoker Tobacco Type: cigarettes # Packs/Day (cigarettes): 1 Alcohol Intake: never Alcohol Intake Frequency:: other Substance Use Type: denies use Occupational Status: retired Housing: house Household Members: none Family Hx:: Heart Attack ROS Obtained: Yes All systems reviewed & no additional complaints - Constitutional Constitutional: Denies fever(s) - Cardiovascular Cardiovascular: Reports chest pain - Respiratory Respiratory: Yes cough, Yes dyspnea, No excessive phlegm production - Gastrointestinal Gastrointestingal: Denies: abdominal pain, diarrhea, vomiting Physical Exam - General General appearance: alert Comment: Mild respiratory distress. Speaks in short sentences. - Head Head exam: atraumatic - Eye Eye exam: Present: normal appearance, EOMI - ENT ENT exam: Present: mucous membranes moist - Neck Neck exam: Present: normal inspection, full ROM - Chest Chest inspection: Present: normal inspection, symmetric chest wall rise - Respiratory Respiratory exam: Present: wheezes, accessory muscle use, prolonged expiratory phase - Cardiovascular Cardiovascular exam: Present: regular rate, normal rhythm, normal heart sounds - Abdominal Exam Abdominal exam: Present: soft, normal bowel sounds. Absent: distention, tenderness - Extremities Exam Extremities exam: Present: normal inspection - Neurological Exam Neurological exam: Present: alert, oriented X3 - Psychiatric Psychiatric exam: Present: normal affect, normal mood - Skin Skin exam: Present: warm, dry
[2019-05-28 02:37] LABS: Basophils # 0.1 K/mm3 (0-0.2); Basophils % 0.4 % (0.1-2.0); Eosinophils # 0.4 K/mm3 (0.0-0.4); Eosinophils % 1.8 % (0.1-12.0); Hematocrit 48.1 % (42.0-52.0); Hemoglobin 15.5 g/dL (14.1-18.0); Lymphocytes # 1.3 K/mm3 (0.7-4.5); Lymphocytes % 6.3 % (10-50); Mean Corpuscular HGB Conc 32.2 g/dL (31.8-35.4); Mean Corpuscular Volume 105.2 fl (80-94); Mean Platelet Volume 8.5 fl (7.4-10.4); Monocytes # 0.9 K/mm3 (0.1-1.0); Monocytes % 4.4 % (1.7-9.3); Neutrophils # 18.6 K/mm3 (1.8-7.8); Neutrophils % 87.1 % (37.0-80.0); Platelet Count 302 K/mm3 (142-424); Red Blood Count 4.58 M/mm3 (4.60-6.20); Red Cell Distribution Width 13.3 % (11.5-17.5)
[2019-05-28 02:45] LABS: White Blood Count 21.3 K/mm3 (4.8-10.8)
[2019-05-28 02:46] LABS: Alanine Aminotransferase 23 U/L (12-78); Albumin Level 3.8 gm/dL (3.4-5.0); Albumin/Globulin Ratio 1.1 (1.1-1.8); Alkaline Phosphatase 133 U/L (46-116); Anion Gap 12.4 mEq/L (5-15); Aspartate Amino Transferase 15 U/L (15-37); Bilirubin,Total 1.2 mg/dL (0.2-1.0); Blood Urea Nitrogen 14 mg/dL (7-18); Calcium 8.8 mg/dL (8.5-10.1); Carbon Dioxide 32 mmol/L (21.0-32.0); Chloride 99 mmol/L (98-107); Globulin 3.6 gm/dl (1.3-3.2); Glucose 99 mg/dL (74-106); Sodium 139 mmol/L (136-145); Total Protein,Serum 7.4 gm/dL (6.4-8.2)
[2019-05-28 02:58] LABS: Eosinophils % 1 % (0-3); Lymphocytes % 5 % (10-50); Macrocytosis 2+; Monocytes % 2 % (2-9); Neutrophils % 81 % (42-76); Total Cells Counted 100
[2019-05-28 02:58] LABS: ABG Base Excess 3.1 mmol/L (-2.4-2.3); ABG HCO3 28.4 mmhg (22.0-26.0); ABG Oxygen Saturation 93 % (90-100); ABG PH 7.37 mmol/L (7.35-7.45); ABG TCO2 29.9 mmhg (23-27)
[2019-05-28 03:00] LABS: Allen's Test Acceptable
[2019-05-28 06:17] LABS: Microscopic, Urine URINE MICROSCOPIC (MICROSCOPIC)
[2019-05-28 06:21] LABS: Appearance,Urine CLEAR (Clear); Bilirubin,Urine Negative (Negative); Blood, Urine Negative (Negative); Color,Urine YELLOW (Yellow); Glucose,Urine (UA) Negative (Negative); Ketones,Urine Negative (Negative); Leukocyte Esterase,Urine Negative (Negative); Protein,Urine Negative (Negative); Specific Gravity, Urine 1.015 (1.005-1.030); Urobilinogen,Urine 0.2 EU/dl (0.2)
[2019-05-28 06:52] LABS: Bacteria,Urine Trace /lpf; Squamous Epithelial Cell,Urine Occasional #/hpf (0-5)
--- NOTE | 2019-05-28 08:34 | History & Physical Report ---
*Admission Date: 05/28/19 *Chief complaint: Short of breath *History of present illness: 79-year-old gentleman with severe COPD on oxygen at home who presented to the ER due to worsening shortness of breath. Of note patient was admitted approximately 2 weeks ago for similar symptoms. Denied significant cough or congestion. Denies fevers. Tolerating good oral intake. No diarrhea or vomiting. No sick contacts he is aware of. He has been at home since discharge and has not gone out other than coming to the doctor's office for follow-up. He states over 12 to 24 hours prior to presentation to the ER he was noting worsening shortness of breath. Was using his nebulizer more often with no benefit. Having a difficult time catching his breath. Has been using Trelegy as a new inhaler but has not found significant benefit. Due to his shortness of breath and wheeze, he came to the ER for assessment. Found to have hypoxemia on ABG and an elevated white count, however received a dose of steroids in route to the hospital by EMS. This morning states he still short of breath but denies chest pain, nausea, vomiting. Received nebs overnight with minimal benefit. Initial imaging had low concern for pneumonia. Comprehensive respiratory panel pending. 14 point review of systems reviewed. Positives and negatives as per above. [facility] History I have reviewed the patient's past medical history: Yes Medical History: Reports:: Arrhythmia, Asthma, Atrial Fibrillation, Chronic Obstructive Pulmonary Disease (COPD), Coronary Artery Disease, Gastroesophageal Reflux Disease(GERD), Hyperlipidemia, Hypertension, Internal Pacemaker Denies:: Cancer, Diabetes Mellitus Type 1, Diabetes Mellitus Type 2, MRSA, Seizures *Have you ever received a pneumonia vaccine?: Yes *Have you received a flu vaccine this season?: Yes Other Medical History: Reports: Other Other Surgeries: Yes: Cardiac Catheterization, Colonoscopy, Coronary Stent, Hernia Repair, Pacemaker, Other (Back Sx, LHC-stent, Loop recorder placed) Amputation: No Fractures: No - *Social History Smoking Status: Former smoker Tobacco Type: cigarettes # Packs/Day (cigarettes): 1 Alcohol Intake: never Alcohol Intake Frequency:: other Substance Use Type: denies use *Occupational Status:: retired Housing: house Household Members: none *Travel in the last 8 weeks: None Family Hx:: Heart Attack Review of Systems - Review of Systems Review of systems:: pertinent systems reviewed and negative unless documented below Meds Home Medications Medication Instructions Recorded Confirmed Type aspirin 325 mg tablet 162.5 mg PO DAILY tab 07/24/17 05/28/19 History bfhpxvcgymkv-merpbukr-tdkrnt tablet 1 tab PO ONCE 07/24/17 05/28/19 History montelukast 10 mg tablet 10 mg PO DAILY tab 07/28/17 05/28/19 History Atorvastatin Calcium [Lipitor 20mg 20 mg PO HS 10/04/18 05/28/19 History Tablet] sotalol 120 mg tablet 120 mg PO Q12H #180 tab 03/18/19 05/28/19 Rx omeprazole 40 mg capsule,delayed 40 mg PO DAILY #90 cap 04/15/19 05/28/19 Rx release Glycopyrrolate/Formoterol Fum 2 puffs IH BID 05/12/19 05/28/19 History [Bevespi Aerosphere Inhaler] Trazodone HCl [Desyrel 50mg tablet] 50 mg PO HSP PRN 05/12/19 05/28/19 History Ipratropium/Albuterol Sulfate 3 ml IH QID 30 Days ampul.neb 05/13/19 05/28/19 Rx [Duoneb 3mL neb] fluticasone propionate 50 2 spray INTRANASAL DAILY #36.4 g 05/16/19 05/28/19 Rx mcg/actuation nasal spray,suspension nitroglycerin 0.4 mg sublingual 0.4 mg SUBLINGUAL Q5-15M PRN #25 05/16/19 05/28/19 Rx tablet tab Fluticasone/Umeclidin/Vilanter 1 each IH DAILY 05/28/19 05/28/19 History [Danay [place] 100-62.5-25] Allergies Allergy/AdvReac Type Severity Reaction Status Date / Time No Known Drug Allergies Allergy Unknown Verified 05/28/19 02:47 Exam Vital signs and Labs for Last 24 Hours: Temp Pulse Resp BP Pulse Ox 97.3 F L 80 24 150/82 H 92 L 05/28/19 06:59 05/28/19 06:59 05/28/19 06:59 05/28/19 06:59 05/28/19 06:59 Laboratory Results - last 24 hr 05/28/19 01:44: WBC 21.3 H*, RBC 4.58 L, Hgb 15.5, Hct 48.1, MCV 105.2 H, MCH 33.9 H, MCHC 32.2, RDW 13.3, Plt Count 302, MPV 8.5, Neut % (Auto) 87.1 H, Lymph % (Auto) 6.3 L, [place] % (Auto) 4.4, Eos % (Auto) 1.8, Baso % (Auto) 0.4, Neut # (Auto) 18.6 H, Lymph # (Auto) 1.3, [place] # (Auto) 0.9, Eos # (Auto) 0.4, Baso # (Auto) 0.1, Total Counted 100, Neutrophils % (Manual) 81 H, Band Neutrophils % 11.0 H, Lymphocytes % (Manual) 5 L, Monocytes % (Manual) 2, Eosinophils % (Manual) 1, Platelet Estimate Normal, Macrocytosis 2+ 05/28/19 01:44: Sodium 139, Potassium 4.4, Chloride 99, Carbon Dioxide 32, Anion Gap 12.4, BUN 14, Creatinine 0.89, Estimated Creat Clear 64, Estimated GFR 82, Est GFR ( Amer) 100, Glucose 99, Calcium 8.8, Total Bilirubin 1.2 H, AST 15, ALT 23, Alkaline Phosphatase 133 H, Troponin I < 0.02, Total Protein 7.4 D, Albumin 3.8, Globulin 3.6 H, Albumin/Globulin Ratio 1.1 05/28/19 02:28: Specimen Source Left radial, O2 % 32%, 3lpm nc, ABG pH 7.37, ABG pCO2 50.0 H, ABG pO2 66.0 L, ABG HCO3 28.4 H, ABG Total CO2 29.9 H, ABG O2 Saturation 93, ABG Base Excess 3.1 H, Hamzah Test Acceptable 05/28/19 02:45: Lactate 1.3 05/28/19 05:29: Troponin I < 0.02 05/28/19 06:03: Urine Color Yellow, Urine Appearance Clear, Urine pH 7.0, Ur Specific [place] 1.015, Urine Protein Negative, Urine Glucose (UA) Negative, Urine Ketones Negative, Urine Blood Negative, Urine Nitrate Negative, Urine Bilirubin Negative, Urine Urobilinogen 0.2, Ur Leukocyte Esterase Negative, Urine RBC 3-5, Urine WBC 3-5, Ur Squamous Epith Cells Occasional, Urine Bacteria Trace I & O for Last 24 hours: Intake & Output 05/25/19 05/26/19 05/27/19 05/28/19 23:59 23:59 23:59 23:59 Weight 77.224 kg - Constitutional mild distress, average body habitus, chronically ill appearing - *Routine HEENT Exam Head: Present: normocephalic Eye: Present: EOMI, PERRL ENT: Present: mucous membranes moist - *Routine Neck Exam Present: supple. Absent: lymphadenopathy - *Routine Respiratory Exam Present: accessory muscle use, prolonged expiratory phase, wheezes (Diffuse), diminished air movement. Absent: rhonchi, crackles - *Routine Cardiovascular Exam Present: RRR - *Routine Abdominal Exam Present: soft, normoactive bowel sounds. Absent: tenderness - *Routine Extremities Exam Absent: cyanosis, clubbing, edema - *Routine Skin Exam Present: warm. Absent: rash - *Routine Neurological Exam Present: alert, oriented X3 Assessment and Plan (1) COPD exacerbation Current visit: Yes Status: Acute Category: Medical Code(s): J44.1 - Chronic obstructive pulmonary disease with (acute) exacerbation (2) Acute on chronic respiratory failure with hypoxemia Current visit: No Status: Acute Category: Medical Code(s): J96.21 - Acute and chronic respiratory failure with hypoxia (3) Pulmonary arterial hypertension Current visit: No Status: Chronic Category: Medical Code(s): I27.21 - S econdary pulmonary arterial hypertension (4) Hypertensive heart disease Current visit: No Status: Chronic Qualifiers: Category: Medical Code(s): I11.9 - Hypertensive heart disease without heart failure (5) Stented coronary artery Current visit: No Status: Chronic Category: Surgical Code(s): Z95.5 - Presence of coronary angioplasty implant and graft - Assessment and plan all Dx Assessment and Plan for all problems:: 79-year-old male with acute on chronic hypoxemic respiratory failure 2/2 COPD exacerbation. Initiated on antibiotics however in the setting of no fever, and improvement in chest x-ray from last admission, have low suspicion for bacterial etiology. We will continue IV steroid therapy. Increase nebulizer treatments to every 4 hours with DuoNeb's. PRN breathing treatments every hour as needed for shortness of breath. Continue antibiotics and steroids as ordered. Viral respiratory panel added, pending. Full code Diet reg. DVT prophylaxis with JEREL [place]
[2019-05-28 09:15] LABS: Coronavirus 229E Not Detected (NotDetected); Coronavirus NL63 Not Detected (NotDetected); Coronavirus OC43 Not Detected (NotDetected); Coronovirus HKU1,PCR Not Detected (NotDetected)
--- NOTE | 2019-05-28 12:00 | Pharmacy Consult Notes ---
[facility] Pharmacy VTE Monitoring - Patient Demographics Admission date: 05/28/19 Report Date: 05/28/19 Time: 12:00 Allergies/Adverse Reactions: Patient Allergies No Known Drug Allergies Allergy (Unknown, Verified 05/28/19 10:15) Height: 1.75 m Weight: 77.224 kg Patient Problems: Current Active Problems COPD exacerbation (Acute) - VTE Risk Labs: VTE Related Lab Results Hgb 15.5 g/dL (14.1-18.0) 05/28/19 01:44 Hct 48.1 % (42.0-52.0) 05/28/19 01:44 Plt Count 302 K/mm3 (142-424) 05/28/19 01:44 BUN 14 mg/dL (7-18) 05/28/19 01:44 Creatinine 0.89 mg/dL (0.70-1.30) 05/28/19 01:44 Estimated Creat Clear 64 mL/min (50-200) 05/28/19 01:44 VTE Score: 3 VTE Risk Level: Low Risk - Prophylaxis VTE Prophylaxis Ordered?: Yes Types of VTE Prophylaxis: TEDS Knee High Location of Applied Device: Bilateral Lower Extremeties
[2019-05-29 06:57] LABS: Eosinophils % 0.1 % (0.1-12.0); Hematocrit 37.1 % (42.0-52.0); Hemoglobin 12.3 g/dL (14.1-18.0); Lymphocytes # 0.7 K/mm3 (0.7-4.5); Lymphocytes % 3.2 % (10-50); Mean Corpuscular HGB Conc 33.2 g/dL (31.8-35.4); Mean Corpuscular Volume 102.9 fl (80-94); Mean Platelet Volume 8.2 fl (7.4-10.4); Monocytes # 0.4 K/mm3 (0.1-1.0); Monocytes % 1.9 % (1.7-9.3); Neutrophils # 19.9 K/mm3 (1.8-7.8); Neutrophils % 94.8 % (37.0-80.0); Platelet Count 249 K/mm3 (142-424); Red Blood Count 3.61 M/mm3 (4.60-6.20); Red Cell Distribution Width 13.1 % (11.5-17.5)
[2019-05-29 07:07] LABS: Anion Gap 13.6 mEq/L (5-15); Calcium 8.8 mg/dL (8.5-10.1)
[2019-05-29 07:26] LABS: Lymphocytes % 7 % (10-50); Neutrophils % 84 % (42-76); RBC Morphology Normal; Total Cells Counted 100
--- NOTE | 2019-05-29 11:29 | Discharge Summary ---
General - General Admission date:: 05/28/19 Discharge date: 05/29/19 HPI HPI: 79-year-old gentleman with severe COPD on oxygen at home who presented to the ER due to worsening shortness of breath. Of note patient was admitted approximately 2 weeks ago for similar symptoms. Denied significant cough or congestion. Denies fevers. Tolerating good oral intake. No diarrhea or vomiting. No sick contacts he is aware of. He has been at home since discharge and has not gone out other than coming to the doctor's office for follow-up. He states over 12 to 24 hours prior to presentation to the ER he was noting worsening shortness of breath. Was using his nebulizer more often with no benefit. Having a difficult time catching his breath. Has been using Trelegy as a new inhaler but has not found significant benefit. Due to his shortness of breath and wheeze, he came to the ER for assessment. Found to have hypoxemia on ABG and an elevated white count, however received a dose of steroids in route to the hospital by EMS. This morning states he still short of breath but denies chest pain, nausea, vomiting. Received nebs overnight with minimal benefit. Initial imaging had low concern for pneumonia. Comprehensive respiratory panel pending. 14 point review of systems reviewed. Positives and negatives as per above. Hospital Course Hospital Course: Mr. Hopkins was admitted for respiratory distress. Showed significant improvement with initiation of antibiotics, steroids, breathing treatments. Symptoms returned to baseline level of chronic respiratory failure. Stable for discharge home on course of treatment for COPD exacerbation. Plan to continue antibiotics with prolonged course of steroids. Tolerating p.o. intake. Afebrile. On baseline oxygen. Discharged home with close follow-up in the outpatient setting. Objective Vital signs: Temp Pulse Resp BP Pulse Ox 97.5 F L 71 20 142/84 H 95 05/29/19 08:00 05/29/19 08:00 05/29/19 08:00 05/29/19 08:00 05/29/19 08:00 Narrative: - Constitutional No acute distress, average body habitus, chronically ill appearing, on baseline NC O2 - *Routine HEENT Exam Head: Present: normocephalic Eye: Present: EOMI, PERRL ENT: Present: mucous membranes moist - *Routine Neck Exam Present: supple. Absent: lymphadenopathy - *Routine Respiratory Exam Present: decreased accessory muscle use, prolonged expiratory phase, wheezes resolved, diminished air movement. Absent: rhonchi, crackles - *Routine Cardiovascular Exam Present: RRR - *Routine Abdominal Exam Present: soft, normoactive bowel sounds. Absent: tenderness - *Routine Extremities Exam Absent: cyanosis, clubbing, edema - *Routine Skin Exam Present: warm. Absent: rash - *Routine Neurological Exam Present: alert, oriented X3 Results Labs on day of discharge: Labs from last 24 hours 05/29/19 05/29/19 06:37 06:37 WBC 21.0 H* RBC 3.61 L Hgb 12.3 L Hct 37.1 L MCV 102.9 H MCH 34.1 H MCHC 33.2 RDW 13.1 Plt Count 249 MPV 8.2 Neut % (Auto) 94.8 H Lymph % (Auto) 3.2 L [place] % (Auto) 1.9 Eos % (Auto) 0.1 Baso % (Auto) 0.0 L Neut # (Auto) 19.9 H Lymph # (Auto) 0.7 [place] # (Auto) 0.4 Eos # (Auto) 0.0 Baso # (Auto) 0.0 Total Counted 100 Neutrophils % (Manual) 84 H Band Neutrophils % 9.0 H Lymphocytes % (Manual) 7 L Platelet Estimate Normal RBC Morphology Normal Sodium 140 Potassium 4.6 Chloride 105 Carbon Dioxide 26 Anion Gap 13.6 BUN 21 H D Creatinine 0.86 Estimated Creat Clear 65 Estimated GFR 86 Est GFR ( Amer) 104 Glucose 142 H Calcium 8.8 DS: Diagnosis - Discharge Diagnosis (1) COPD exacerbation Status: Acute (2) Acute on chronic respiratory failure with hypoxemia Status: Acute (3) Pulmonary arterial hypertension Status: Chronic (4) Hypertensive heart disease Status: Chronic (5) Stented coronary artery Status: Chronic Discharge Plan - Patient Discharge Instructions ACTIVITY: Continue current activity DIET: continue same diet Patient Instructions: Chronic Obstructive Pulmonary Disease, DI for Chronic Obstructive Pulmonary Disease - Follow up Plan Follow up with: Esequiel Santamaria MD [Staff Physician] - Esequiel Dubon MD [Physician] - Disposition: Home, Self-Senior Care Medications: Home Medications Medication Instructions Recorded Confirmed Type aspirin 325 mg tablet 162.5 mg PO DAILY tab 07/24/17 05/28/19 History fpsxiktknagq-dsddmvum-cgglnu 1 tab PO DAILY 07/24/17 05/28/19 History montelukast 10 mg tablet 10 mg PO DAILY tab 07/28/17 05/28/19 History Atorvastatin Calcium [Lipitor 20mg 20 mg PO HS 10/04/18 05/28/19 History Tablet] sotalol 120 mg tablet 120 mg PO Q12H #180 tab 03/18/19 05/28/19 Rx Glycopyrrolate/Formoterol Fum 2 puffs IH BID 05/12/19 05/28/19 History [Bevespi Aerosphere Inhaler] Trazodone HCl [Desyrel 50mg tablet] 100 mg PO HSP PRN 05/12/19 05/28/19 History Ipratropium/Albuterol Sulfate 3 ml IH QID 30 Days ampul.neb 05/13/19 05/28/19 Rx [Duoneb 3mL neb] nitroglycerin 0.4 mg sublingual 0.4 mg SUBLINGUAL Q5-15M PRN #25 05/16/19 05/28/19 Rx tablet tab Albuterol Sulfate [Proair Hfa 2 puffs IH DAILYP PRN 05/28/19 05/28/19 History 90mcg/puff Inh] Fluticasone Propionate [Flonase 1 spray INTRANASAL BID 05/28/19 05/28/19 History Allergy Relief NS] Tamsulosin HCl 0.4 mg PO DAILYP PRN 05/28/19 05/28/19 History Azithromycin 250 mg PO DAILY 4 Days #4 tab 05/29/19 Rx Cefdinir [Omnicef 300mg Capsule] 300 mg PO BID 6 Days #12 cap 05/29/19 Rx Fluticasone/Umeclidin/Vilanter 1 each IH DAILY 30 Days #1 05/29/19 Rx [Danay Ellipta 100-62.5-25] blst.w.dev predniSONE [Deltasone 10mg tablet] 40 mg PO DAILY 7 Days #28 tab 05/29/19 Rx omeprazole 40 mg capsule,delayed 40 mg PO DAILY #90 cap 06/06/19 Rx release Prescriptions/Medication Reconciliation: New Cefdinir [Omnicef 300mg Capsule] 300 mg PO BID 6 Days #12 cap predniSONE [Deltasone 10mg tablet] 40 mg PO DAILY 7 Days #28 tab Fluticasone/Umeclidin/Vilanter [Trelegy Ellipta 100-62.5-25] 1 each IH DAILY 30 Days #1 blst.w.dev Azithromycin 250 mg PO DAILY 4 Days #4 tab Continued aspirin 325 mg tablet 162.5 mg PO DAILY tab omyftwzchryv-fbjnymnx-pvahlk 1 tab PO DAILY montelukast 10 mg tablet 10 mg PO DAILY tab sotalol 120 mg tablet 120 mg PO Q12H #180 tab nitroglycerin 0.4 mg sublingual tablet 0.4 mg SUBLINGUAL Q5-15M PRN #25 tab PRN Reason: chest pain Glycopyrrolate/Formoterol Fum [Bevespi Aerosphere Inhaler] 2 puffs IH BID Tamsulosin HCl 0.4 mg PO DAILYP PRN PRN Reason: PROSTATE Atorvastatin Calcium [Lipitor 20mg Tablet] 20 mg PO HS Trazodone HCl [Desyrel 50mg tablet] 100 mg PO HSP PRN PRN Reason: Insomnia Ipratropium/Albuterol Sulfate [Duoneb 3mL neb] 3 ml IH QID 30 Days ampul.neb Albuterol Sulfate [Proair Hfa 90mcg/puff Inh] 2 puffs IH DAILYP PRN PRN Reason: SHORTNESS OF BREATH/WHEEZING Fluticasone Propionate [Flonase Allergy Relief NS] 1 spray INTRANASAL BID Discontinued Fluticasone/Umeclidin/Vilanter [Trelegy Ellipta 100-62.5-25] 1 each IH DAILY No Action omeprazole 40 mg capsule,delayed release 40 mg PO DAILY #90 cap - Problem Reconciliation Problems Reviewed?: Yes
--- NOTE | 2019-05-29 16:59 | Electrocardiograph Report ---
APPROVED REPORT Exam: Resting ECG HR:85 bpm ECG Measurements Heart Rate 85 AXES AR 142 P 59 QRSd 86 QRS 64 QT 388 T46 QTc 461 <Conclusion> Normal sinus rhythm,Motion Artifact Otherwise a Normal ECG Electronically signed by : Bharath Barbosa, 05/29/2019 16:59:23
== END 2019-05-29 13:15 | disposition home or self-care (01) ==
LOC: 2ND 02:08 → ER 02:08 → ICU 06:06 → 2ND 14:36
PROVIDERS: ADMIT Emergency Medicine; ATTEND Internal Medicine Adolescent Medicine
CPT/HCPCS: 36415; 71010; 71045; 80048; 80053; 81001; 82803; 83605; 84484; 85007; 85025; 87040; 87070; 87077; 87186; 87205; 87486; 87581; 87633; 87798; 93005; 94640; 94761; 96366; 96374; 99285; G0378; J0456

== ENCOUNTER 2019-06-17 08:18 | Emergency (ER) | payer MEDICARE, OTHER, SELFPAY ==
[2019-06-17] VITALS (7 sets, daily range): BP systolic 100–122; BP diastolic 50–69; PULSE 70–78; RESP 18; TEMP 36.7–37.2; O2SAT 91–98; BMI 26.6
--- NOTE | 2019-06-17 08:27 | ECG_ITS ---
APPROVED REPORT Exam: Resting ECG HR:74 bpm ECG Measurements Heart Rate 74 AXES WA 118 P 44 QRSd 88 QRS 52 QT 388 T 23 QTc 430 <Conclusion> Sinus rhythm with premature supraventricular complexes Otherwise normal ECG Electronically signed by : Bharath Barbosa, 06/21/2019 14:28:28
--- NOTE | 2019-06-17 08:34 | XR_ITS ---
PROCEDURE: XR CHEST 2V CLINICAL HISTORY: soa COMPARISON: CHESTWO CT chest wo con from 01/12/2019 XR CHEST PORTABLE from 05/11/2019 XR CHEST PORTABLE from 05/12/2019 XR CHEST PORTABLE from 05/28/2019 FINDINGS: The cardiomediastinal silhouette and pulmonary vascularity are within normal limits. There is now a patchy area of indistinct density at the left lung base and also along the posterior segment left lower lobe overlying the thoracic spine on the lateral view. There could be some air bronchograms indicating areas of alveolar consolidation. Cardiac pacemaker is stable. No acute bony abnormalities. IMPRESSION: New area of consolidation/atelectasis left lung base. Correlate clinically to rule out pneumonia. Dictated by: Eliazar Cordero 06/17/2019 17:29 Electronically signed by Eliazar Cordero in [place] 06/17/2019 17:29
--- NOTE | 2019-06-17 08:44 | PC.NURSE ---
rt at bedside
[2019-06-17 08:54] LABS: ABG Base Excess -0.3 mmol/L (-2.4-2.3); ABG HCO3 23.4 mmhg (22.0-26.0); ABG Oxygen Saturation 92 % (90-100); ABG PCO2 33.3 mmhg (35.0-45.0); ABG PH 7.47 mmol/L (7.35-7.45); ABG PO2 59.9 mmhg (80-100); ABG TCO2 24.4 mmhg (23-27)
[2019-06-17 08:55] LABS: Allen's Test ACCEPTABLE; Oxygen 2LPM %; Source R RADIAL
[2019-06-17 09:06] LABS: Basophils % 0.2 % (0.1-2.0); Eosinophils # 0.1 K/mm3 (0.0-0.4); Hematocrit 32.9 % (42.0-52.0); Hemoglobin 11.3 g/dL (14.1-18.0); Lymphocytes % 7.6 % (10-50); Mean Corpuscular HGB Conc 34.2 g/dL (31.8-35.4); Mean Corpuscular Hemoglobin 34.7 pg (27.0-31.2); Mean Corpuscular Volume 101.3 fl (80-94); Mean Platelet Volume 8.8 fl (7.4-10.4); Monocytes # 0.7 K/mm3 (0.1-1.0); Monocytes % 4.7 % (1.7-9.3); Neutrophils # 11.9 K/mm3 (1.8-7.8); Neutrophils % 86.5 % (37.0-80.0); Platelet Count 237 K/mm3 (142-424); Red Blood Count 3.25 M/mm3 (4.60-6.20); Red Cell Distribution Width 13.7 % (11.5-17.5); White Blood Count 13.8 K/mm3 (4.8-10.8)
[2019-06-17 09:07] LABS: MANUAL DIFFERENTIAL MANUAL DIFFERENTIAL (MANUAL DIFF)
[2019-06-17 09:18] LABS: Alanine Aminotransferase 19 U/L (12-78); Albumin Level 2.7 gm/dL (3.4-5.0); Albumin/Globulin Ratio 0.7 (1.1-1.8); Alkaline Phosphatase 100 U/L (46-116); Anion Gap 13.2 mEq/L (5-15); Aspartate Amino Transferase 10 U/L (15-37); Bilirubin,Total 1.2 mg/dL (0.2-1.0); Blood Urea Nitrogen 15 mg/dL (7-18); Calcium 8.1 mg/dL (8.5-10.1); Carbon Dioxide 27 mmol/L (21.0-32.0); Chloride 103 mmol/L (98-107); Creatinine Clearance Estimated 68 mL/min (50-200); Creatinine,Serum 0.81 mg/dL (0.70-1.30); Estimated Glomerular Filt Rate 92 ml/min (>60); GFR (African American) 111 ML/MIN (>60); Globulin 3.8 gm/dl (1.3-3.2); Glucose 104 mg/dL (74-106); Potassium 4.2 mmoL/L (3.5-5.1); Sodium 139 mmol/L (136-145); Total Protein,Serum 6.5 gm/dL (6.4-8.2); Troponin I < 0.02 ng/ml (0.00-0.06)
[2019-06-17 09:19] LABS: Lactic Acid 1.1 mmol/L (0.4-2.0)
[2019-06-17 09:20] LABS: Eosinophils % 3 % (0-3); Lymphocytes % 10 % (10-50); Macrocytosis 1+; Monocytes % 6 % (2-9); Neutrophils % 81 % (42-76); Platelet Estimate Normal; Total Cells Counted 100
--- NOTE | 2019-06-17 09:38 | HMH.EDGENADL ---
ED Disposition Clinical Impression: COPD exacerbation, Community acquired pneumonia Disposition: Home, Self-Care Condition on Discharge: Good Instructions: Pneumonia-Adult, DI for Chronic Obstructive Pulmonary Disease Additional Instructions: Follow-up with your primary care provider on Thursday morning. Return to the emergency department immediately if symptoms are worse. Prescriptions: predniSONE [Deltasone 10mg tablet] 10 mg PO DAILY 5 Days #5 tab Transmission Status: Received by [id number] Ipratropium/Albuterol Sulfate [Duoneb 3mL neb] 3 ml IH Q6H 3 Days #20 neb Transmission Status: Received by [facility] levoFLOXacin [Levaquin 500mg tab] 500 mg PO DAILY #7 tab Transmission Status: Received by [id number] Referrals: Yobany Stoll MD [Primary Care Provider] - Time of Disposition: 13:20 - Critical Care Critical Care Time: No Attestation: On 06/17/19, the high probability of a clinically significant, sudden or life threatening deterioration of the following system(s) required my full and direct attention, intervention and personal management. The time I documented below is in addition to time spent performing reported procedures but includes the following listed in this critical care notation. Medical Decision Making - Medical Records Medical records reviewed: Yes: I reviewed the patient's medical records. - Jamie Inquiry Pt receiving controlled substance: No Vital Signs: 06/17/19 08:29 06/17/19 09:04 06/17/19 09:19 Temperature 99 F Temperature Source Oral Pulse Rate [Right] 72 78 Respiratory Rate 18 Blood Pressure [Right Arm] 113/69 113/69 Blood Pressure Mean [Right Arm] 83 83 Blood Pressure Source [Right Arm] Automatic Cuff Blood Pressure Position [Right Arm] Sitting 02 Sat by Pulse Oximetry 91 L 93 L Oxygen Delivery Method Nasal Cannula Nasal Cannula Nasal Cannula Oxygen Flow Rate (LPM) 2 2 3 06/17/19 09:42 06/17/19 11:14 06/17/19 12:42 Temperature Temperature Source Pulse Rate [Right] 76 74 70 Respiratory Rate Blood Pressure [Right Arm] 122/50 L 100/65 L 106/57 L Blood Pressure Mean [Right Arm] 74 76 73 Blood Pressure Source [Right Arm] Automatic Cuff Automatic Cuff Automatic Cuff Blood Pressure Position [Right Arm] Sitting Sitting Sitting 02 Sat by Pulse Oximetry 93 L 91 L 92 L Oxygen Delivery Method Nasal Cannula Nasal Cannula Nasal Cannula Oxygen Flow Rate (LPM) 3 3 3 - Lab Data Lab results reviewed: Yes: I reviewed the patient's lab results. Lab Results 06/17/19 08:45: WBC 13.8 H, RBC 3.25 L, Hgb 11.3 L, Hct 32.9 L, MCV 101.3 H, MCH 34.7 H, MCHC 34.2, RDW 13.7, Plt Count 237, MPV 8.8, Neut % (Auto) 86.5 H, Lymph % (Auto) 7.6 L, [place] % (Auto) 4.7, Eos % (Auto) 1.0, Baso % (Auto) 0.2, Neut # (Auto) 11.9 H, Lymph # (Auto) 1.0, [place] # (Auto) 0.7, Eos # (Auto) 0.1, Baso # (Auto) 0.0, Total Counted 100, Neutrophils % (Manual) 81 H, Lymphocytes % (Manual) 10, Monocytes % (Manual) 6, Eosinophils % (Manual) 3, Platelet Estimate Normal, Macrocytosis 1+ 06/17/19 08:45: Sodium 139, Potassium 4.2, Chloride 103, Carbon Dioxide 27, Anion Gap 13.2, BUN 15, Creatinine 0.81, Estimated Creat Clear 68, Estimated GFR 92, Est GFR ( Amer) 111, Glucose 104, Calcium 8.1 L, Total Bilirubin 1.2 H, AST 10 L, ALT 19, Alkaline Phosphatase 100, Troponin I < 0.02, Total Protein 6.5, Albumin 2.7 L, Globulin 3.8 H, Albumin/Globulin Ratio 0.7 L 06/17/19 08:45: Influenza Type A Ag Negative, Influenza Type B Ag Negative 06/17/19 08:45: Lactate 1.1 06/17/19 08:45: B-Natriuretic Peptide 35 06/17/19 08:52: Specimen Source R radial, O2 % 2lpm, ABG pH 7.47 H, ABG pCO2 33.3 L, ABG pO2 59.9 L, ABG HCO3 23.4, ABG Total CO2 24.4, ABG O2 Saturation 92, ABG Base Excess -0.3, Hamzah Test Acceptable 06/17/19 11:50: Troponin I < 0.02 Result diagrams: 06/17/19 08:45 06/17/19 08:45 Orders (Tests/Meds): ED MEDICATIONS Discontinued Medications Generic Name Dos
--- NOTE | 2019-06-17 09:54 | PC.NURSE ---
Pt states he is feeling better at this time.
[2019-06-17 12:20] LABS: Troponin I < 0.02 ng/ml (0.00-0.06)
--- NOTE | 2019-06-17 13:07 | PC.NURSE ---
speaking with dr hwang
== END 2019-06-17 14:05 | disposition home or self-care (01) ==
PROVIDERS: Emergency Provider Emergency Medicine; PCP Internal Medicine Adolescent Medicine
DX: J44.1 Chronic obstructive pulmonary disease with (acute) exacerbation (principal); J18.9 Pneumonia, unspecified organism; I48.20 Chronic atrial fibrillation, unspecified; I25.10 Atherosclerotic heart disease of native coronary artery without angina pectoris; E78.5 Hyperlipidemia, unspecified; I10 Essential (primary) hypertension; K21.9 Gastro-esophageal reflux disease without esophagitis; Z95.0 Presence of cardiac pacemaker; Z95.5 Presence of coronary angioplasty implant and graft; Z87.891 Personal history of nicotine dependence
CPT/HCPCS: 71046; 80053; 82803; 83605; 83880; 84484; 85007; 85025; 87040; 87275; 87276; 93005; 96374; 96375; 99285

== ENCOUNTER → 2019-06-28 13:31 | Outpatient (CLI) | payer MEDICARE, OTHER, SELFPAY ==
[2019-06-28 14:59] LABS: Anion Gap 11.4 mEq/L (5-15); Blood Urea Nitrogen 17 mg/dL (7-18); Calcium 8.6 mg/dL (8.5-10.1); Carbon Dioxide 29 mmol/L (21.0-32.0); Chloride 106 mmol/L (98-107); Creatinine,Serum 0.89 mg/dL (0.70-1.30); Estimated Glomerular Filt Rate 82 ml/min (>60); GFR (African American) 100 ML/MIN (>60); Glucose 90 mg/dL (74-106); Potassium 4.4 mmoL/L (3.5-5.1); Sodium 142 mmol/L (136-145)
== END ==
PROVIDERS: Visit Provider Internal Medicine Adolescent Medicine
DX: J44.9 Chronic obstructive pulmonary disease, unspecified (principal); R06.00 Dyspnea, unspecified
CPT/HCPCS: 36415; 80048; 83880

== ENCOUNTER → 2019-06-29 13:01 | Outpatient (CLI) | payer MEDICARE, OTHER, SELFPAY ==
--- NOTE | 2019-06-29 | CT_ITS ---
PROCEDURE: CT CHEST WO/W CON CLINCAL INDICATION: Cough, shortness of air, COPD COMPARISON: CHESTWO CT chest wo con from 01/12/2019 TECHNIQUE: IV Contrast: 75ml Optiray 350 Axial images obtained with sagittal and coronal reformats. All CT scans at the facility use one or more dose reduction, viz: automated exposure control, ma/kV adjustment per patient size (including targeted exams where dose is matched to indication, i.e. head), or iterative reconstruction technique. FINDINGS: HEART,AORTA,PULMONARY ARTERIES artifact from pacemaker wires and cardiac stents. MEDIASTINAL AND HILAR STRUCTURES: No mediastinal or hilar mass evident. No dominant adenopathy. LUNGS: The the changes of COPD. There are patchy areas of airspace consolidation somewhat irregular in nature in the right upper lobe, right lower lobe anteriorly and in the right lung base, and left lower lobe at the lung base. This is most extensive in the left lung base. This is consistent with areas of bilateral pneumonia. These findings were not present on 01/12/2019. PLEURAL SPACES: No significant effusion. No evidence of pneumothorax. BONY STRUCTURES: There are degenerative changes in the thoracic spine with mild wedging involving T8 unchanged. LYMPH NODES: No enlarged lymph nodes evident. UPPER ABDOMEN: Extensive artifact is present from multiple surgical clips in the GE junction and stomach region. There are multiple gallstones ADDITIONAL FINDINGS: No other significant abnormalities. IMPRESSION: 1. Interval development of multiple irregular areas of parenchymal opacification most extensive in the left lower lobe consistent with inflammatory/infectious process/pneumonia. Suggest following till clear. Anyone of these areas could obscure a pulmonary nodule 2. Cholelithiasis 3. COPD Dictated by: Hamzah Hamilton MD 06/29/2019 16:25 Electronically signed by Hamzah Hamilton MD in [facility] 06/29/2019 16:25
== END ==
PROVIDERS: PCP Internal Medicine Adolescent Medicine; Visit Provider Internal Medicine Adolescent Medicine
DX: R05 Cough (principal); R60.0 Localized edema
CPT/HCPCS: 71270; Q9967

== ENCOUNTER → 2019-07-28 14:44 | Outpatient (CLI) | payer MEDICARE, OTHER, SELFPAY | PROVIDERS: PCP Internal Medicine Adolescent Medicine; Visit Provider Internal Medicine Adolescent Medicine | DX: R06.02 Shortness of breath (principal) | CPT/HCPCS: 94060; 94727; 94729 ==

== ENCOUNTER 2019-08-02 11:59 | Inpatient (IN) ==
--- NOTE | 2019-08-02 13:23 | Pharmacy Consult Notes ---
[facility] Pharmacy VTE Monitoring - Patient Demographics Admission date: 08/02/19 Report Date: 08/02/19 Time: 13:22 Allergies/Adverse Reactions: Patient Allergies No Known Drug Allergies Allergy (Unknown, Verified 07/26/19 08:41) Height: 1.75 m Weight: 75.551 kg - Prophylaxis VTE Prophylaxis Ordered?: Yes Types of VTE Prophylaxis: TEDS Knee High Location of Applied Device: Bilateral Lower Extremeties
--- NOTE | 2019-08-02 13:27 | History & Physical Report ---
*Admission Date: 08/02/19 *Chief complaint: SOA *History of present illness: Mr. Hopkins is a pleasant 79-year-old gentleman with progressing gold stage IVd COPD who presented to clinic today with moderate respiratory distress. Has had worsening respiratory symptoms over the past week. Normally wears 2 L of oxygen at home, was satting high 80s in clinic today with a respiratory rate of 30 on presentation on his baseline 2 L. Dyspneic on interview, poor air movement bilaterally on exam in clinic. Was admitted directly from clinic for further work-up and management of acute on chronic hypoxemic respiratory failure. Patient has been on daily steroids and 3 times a week azithromycin along with aggressive nebulizers and inhalers, montelukast, and continuous oxygen. Is dyspneic at baseline which is exacerbated by movement. Last hospitalization for respiratory illness was 2 months ago. Patient denies smoking cigarettes however does smoke a cigar occasionally with last one 3 to 4 days ago. Denies fever, chest pain, edema. Complains of worsening shortness of breath, productive cough, fatigue, impending sense of doom. [facility] History I have reviewed the patient's past medical history: Yes Medical History: Reports:: Arrhythmia, Asthma, Atrial Fibrillation, Chronic Obstructive Pulmonary Disease (COPD), Coronary Artery Disease, Gastroesophageal Reflux Disease(GERD), Hyperlipidemia, Hypertension, Internal Pacemaker Denies:: Cancer, Diabetes Mellitus Type 1, Diabetes Mellitus Type 2, MRSA, Seizures *Have you ever received a pneumonia vaccine?: Yes *Have you received a flu vaccine this season?: Yes Other Medical History: Reports: Other Other Surgeries: Yes: Cardiac Catheterization, Colonoscopy, Coronary Stent, Hernia Repair, Pacemaker, Other (Back Sx, LHC-stent, Loop recorder placed) Amputation: No Fractures: No - *Social History Smoking Status: Former smoker Tobacco Type: cigarettes # Packs/Day (cigarettes): 1 #Yrs smoked (if former smoker): 60 Alcohol Intake: never Alcohol Intake Frequency:: other Substance Use Type: denies use *Occupational Status:: retired Housing: house Household Members: none *Travel in the last 8 weeks: None Family Hx:: Heart Attack Review of Systems - Review of Systems Review of systems:: pertinent systems reviewed and negative unless documented below (14 point review of systems performed, pertinent positives and negatives per HPI) Meds Home Medications Medication Instructions Recorded Confirmed Type aspirin 325 mg tablet 162.5 mg PO DAILY tab 07/24/17 08/02/19 History [id number] 1 tab PO DAILY 07/24/17 08/02/19 History montelukast 10 mg tablet 10 mg PO DAILY tab 07/28/17 08/02/19 History Atorvastatin Calcium [Lipitor 20mg 20 mg PO HS 10/04/18 08/02/19 History Tablet] Glycopyrrolate/Formoterol Fum 2 puffs IH BID 05/12/19 08/02/19 History [Bevespi Aerosphere Inhaler] Trazodone HCl [Desyrel 50mg tablet] 100 mg PO HSP PRN 05/12/19 08/02/19 History Ipratropium/Albuterol Sulfate 3 ml IH QID 30 Days ampul.neb 05/13/19 08/02/19 Rx [Duoneb 3mL neb] nitroglycerin 0.4 mg sublingual 0.4 mg SUBLINGUAL Q5-15M PRN #25 05/16/19 08/02/19 Rx tablet tab Albuterol Sulfate [Proair Hfa 2 puffs IH DAILYP PRN 05/28/19 08/02/19 History 90mcg/puff Inh] Fluticasone Propionate [Flonase 1 spray INTRANASAL BID 05/28/19 08/02/19 History Allergy Relief NS] Tamsulosin HCl 0.4 mg PO DAILYP PRN 05/28/19 08/02/19 History omeprazole 40 mg capsule,delayed 40 mg PO DAILY #90 cap 06/06/19 08/02/19 Rx release Furosemide [Furosemide 40MG tAB] 40 mg PO DAILY 08/02/19 08/02/19 History Sotalol HCl [Sotalol] 120 mg PO BID 08/02/19 08/02/19 History Umeclidinium Brm/Vilanterol Tr 1 inh IH DAILY 08/02/19 08/02/19 History [Anoro Ellipta 62.5-25 Mcg INH] Allergies Allergy/AdvReac Type Severity Reaction Status Date / Time No Known Drug Allergies Allergy Unknown Verified 07/26/19 08:41 Exam Vital signs and Labs for Last 24 Hours: Temp Pulse Resp BP Pulse Ox 97.8 F 89 18 127/61 92 L 08/02/19 12:11 08/02/19 12:11 08/02/19 12:11 08/02/19 12:11 08/02/19 12:11 I & O for Last 24 hours: Intake & Output 07/30/19 07/31/19 08/01/19 08/02/19 23:59 23:59 23:59 23:59 Weight 75.551 kg - Constitutional moderate distress, average body habitus, chronically ill appearing - *Routine HEENT Exam Head: Present: normocephalic Eye: Present: EOMI, PERRL ENT: Present: mucous membranes moist - *Routine Neck Exam Present: supple. Absent: lymphadenopathy - *Routine Respiratory Exam Present: accessory muscle use, decreased breath sounds, prolonged expiratory phase, rhonchi, wheezes, crackles, distant breath sounds - *Routine Cardiovascular Exam Present: RRR. Absent: murmur - *Routine Abdominal Exam Present: soft, normoactive bowel sounds. Absent: tenderness - *Routine Extremities Exam Absent: cyanosis, clubbing, edema - *Routine Skin Exam Present: warm. Absent: rash - *Routine Neurological Exam Present: alert, oriented X3. Absent: altered mental status Assessment and Plan (1) Acute on chronic respiratory failure with hypoxemia Current visit: No Status: Acute Category: Medical Code(s): J96.21 - Acute and chronic respiratory failure with hypoxia (2) Community acquired pneumonia Current visit: No Status: Acute Category: Medical Code(s): J18.9 - Pneumonia, unspecified organism (3) Cardiac pacemaker in situ Current visit: No Status: Chronic Category: Medical Code(s): Z95.0 - Presence of cardiac pacemaker (4) Coronary arteriosclerosis Current visit: No Status: Chronic Category: Medical Code(s): I25.10 - Atherosclerotic heart disease of [place] coronary artery without angina pectoris (5) Hypertensive heart disease Current visit: No Status: Chronic Qualifiers: Category: Medical Code(s): I11.9 - Hypertensive heart disease without heart failure (6) PAF (paroxysmal atrial fibrillation) Current visit: No Status: Chronic Category: Medical Code(s): I48.0 - Paroxysmal atrial fibrillation (7) Pulmonary arterial hypertension Current visit: No Status: Chronic Category: Medical Code(s): I27.21 - Secondary pulmonary arterial hypertension (8) Tobacco dependence syndrome Current visit: No Status: Chronic Category: Medical Code(s): F17.200 - Nicotine dependence, unspecified, uncomplicated - Assessment and plan all Dx Assessment and Plan for all problems:: 79-year-old male with gold stage IVd COPD. Presents with persistent bilateral pneumonia and acute on chronic hypoxemic respiratory failure. Initiated on antibiotics and steroids. Aggressive breathing treatments. Will initiate Mucomyst for aggressive pulmonary toilet. Initiated on BiPAP for respiratory support given hypoxemia and hypercarbia. Will monitor for improvement over the coming days. Additionally will get an echo to assess for cardiac function given his persistent worsening respiratory status over the past few months. Initiate Roflumilast during admission, pending echo will consider potential benefits of theophylline therapy in this patient. Further management pending results and response to therapy. Full code. Addition remains guarded, prognosis poor.
[2019-08-02 14:02] LABS: Albumin/Globulin Ratio 0.9 (1.1-1.8); Anion Gap 10.1 mEq/L (5-15); Bilirubin,Total 0.5 mg/dL (0.2-1.0); Calcium 8.4 mg/dL (8.5-10.1); Globulin 3.4 gm/dl (1.3-3.2); Total Protein,Serum 6.4 g/dL (6.4-8.2)
[2019-08-02 14:25] LABS: Basophils # 0.1 K/mm3 (0-0.2); Basophils % 0.5 % (0.1-2.0); Eosinophils # 0.4 K/mm3 (0.0-0.4); Eosinophils % 3.9 % (0.1-12.0); Hematocrit 33.5 % (42.0-52.0); Lymphocytes # 1.5 K/mm3 (0.7-4.5); Lymphocytes % 15.1 % (10-50); Mean Corpuscular HGB Conc 32.9 g/dL (31.8-35.4); Mean Corpuscular Volume 103.3 fl (80-94); Monocytes # 0.5 K/mm3 (0.1-1.0); Monocytes % 5.3 % (1.7-9.3); Neutrophils # 7.3 K/mm3 (1.8-7.8); Neutrophils % 75.2 % (37.0-80.0); Platelet Count 383 K/mm3 (142-424); Red Blood Count 3.24 M/mm3 (4.60-6.20); Red Cell Distribution Width 15.2 % (11.5-17.5); White Blood Count 9.7 K/mm3 (4.8-10.8)
[2019-08-02 15:06] LABS: ABG Base Excess 3.5 mmol/L (-2.4-2.3); ABG HCO3 28.9 mmhg (22.0-26.0); ABG Oxygen Saturation 93 % (90-100); ABG PH 7.36 mmol/L (7.35-7.45); ABG PO2 68.5 mmhg (80-100); ABG TCO2 30.5 mmhg (23-27)
[2019-08-02 15:08] LABS: Oxygen 3LPM %
[2019-08-02 15:09] LABS: Allen's Test ACCEPTABLE
[2019-08-02 15:11] LABS: ABG PCO2 52.1 mmhg (35.0-45.0)
[2019-08-03 06:02] LABS: Basophils % 0.2 % (0.1-2.0); Eosinophils % 0.1 % (0.1-12.0); Hematocrit 32.1 % (42.0-52.0); Hemoglobin 10.8 g/dL (14.1-18.0); Lymphocytes # 0.7 K/mm3 (0.7-4.5); Lymphocytes % 8.8 % (10-50); Mean Corpuscular HGB Conc 33.7 g/dL (31.8-35.4); Mean Corpuscular Volume 102.5 fl (80-94); Mean Platelet Volume 8.4 fl (7.4-10.4); Monocytes # 0.1 K/mm3 (0.1-1.0); Monocytes % 1.8 % (1.7-9.3); Neutrophils # 6.7 K/mm3 (1.8-7.8); Neutrophils % 89.2 % (37.0-80.0); Platelet Count 322 K/mm3 (142-424); Red Blood Count 3.13 M/mm3 (4.60-6.20); Red Cell Distribution Width 15.1 % (11.5-17.5); White Blood Count 7.5 K/mm3 (4.8-10.8)
[2019-08-03 06:40] LABS: Albumin Level 2.9 g/dL (3.4-5.0); Albumin/Globulin Ratio 0.8 (1.1-1.8); Bilirubin,Total 0.5 mg/dL (0.2-1.0); Calcium 8.7 mg/dL (8.5-10.1); Globulin 3.5 gm/dl (1.3-3.2); Total Protein,Serum 6.4 g/dL (6.4-8.2)
--- NOTE | 2019-08-03 08:45 | Progress Note ---
Internal Medicine - PN: Subj *Date: 08/03/19 *Time: 08:42 Interval history: Overall patient feels a little bit better. He is still dyspneic at rest, was able to eat breakfast today. Exam Vital signs and Labs for Last 24 Hours: Temp Pulse Resp BP Pulse Ox 97.5 F L 70 20 145/73 H 92 L 08/03/19 08:00 08/03/19 08:00 08/03/19 08:00 08/03/19 08:00 08/03/19 08:00 Laboratory Results - last 24 hr 08/02/19 13:22: Specimen Source R radial, O2 % 3lpm, ABG pH 7.36, ABG pCO2 52.1 H, ABG pO2 68.5 L, ABG HCO3 28.9 H, ABG Total CO2 30.5 H, ABG O2 Saturation 93, ABG Base Excess 3.5 H, Hamzah Test Acceptable 08/02/19 13:30: WBC 9.7, RBC 3.24 L, Hgb 11.0 L, Hct 33.5 L, MCV 103.3 H, MCH 34.0 H, MCHC 32.9, RDW 15.2, Plt Count 383, MPV 8.0, Neut % (Auto) 75.2, Lymph % (Auto) 15.1, [place] % (Auto) 5.3, Eos % (Auto) 3.9, Baso % (Auto) 0.5, Neut # (Auto) 7.3, Lymph # (Auto) 1.5, [place] # (Auto) 0.5, Eos # (Auto) 0.4, Baso # (Auto) 0.1 08/02/19 13:30: Sodium 146 H, Potassium 4.1, Chloride 107, Carbon Dioxide 33 H, Anion Gap 10.1, BUN 15, Creatinine 0.93, Estimated Creat Clear 63, Estimated GFR 78, Est GFR ( Amer) 95, Glucose 88, Calcium 8.4 L, Magnesium 2.0, Total Bilirubin 0.5, AST 15, ALT 20 L, Alkaline Phosphatase 127 H, Total Protein 6.4, Albumin 3.0 L, Globulin 3.4 H, Albumin/Globulin Ratio 0.9 L 08/02/19 13:30: Lactate 0.8 08/03/19 05:55: WBC 7.5, RBC 3.13 L, Hgb 10.8 L, Hct 32.1 L, MCV 102.5 H, MCH 34.5 H, MCHC 33.7, RDW 15.1, Plt Count 322, MPV 8.4, Neut % (Auto) 89.2 H, Lymph % (Auto) 8.8 L, [place] % (Auto) 1.8, Eos % (Auto) 0.1, Baso % (Auto) 0.2, Neut # (Auto) 6.7, Lymph # (Auto) 0.7, [place] # (Auto) 0.1, Eos # (Auto) 0.0, Baso # (Auto) 0.0 08/03/19 05:55: Sodium 144, Potassium 5.0 D, Chloride 108 H, Carbon Dioxide 31, Anion Gap 10.0, BUN 12, Creatinine 1.02, Estimated Creat Clear 67, Estimated GFR 70, Est GFR ( Amer) 85, Glucose 144 H D, Calcium 8.7, Magnesium 1.9, Total Bilirubin 0.5, AST 15, ALT 19 L, Alkaline Phosphatase 118 H, Total Protein 6.4, Albumin 2.9 L, Globulin 3.5 H, Albumin/Globulin Ratio 0.8 L I & O for Last 24 hours: Intake & Output 07/31/19 08/01/19 08/02/19 08/03/19 11:59 11:59 11:59 11:59 Intake Total 889 / 889 Output Total 350 / 350 Balance 539 / 539 Weight 181 lb Microbiology Reports for the Last 24 Hours: Microbiology 08/02/19 13:45 Sputum - Expectorated Sputum Gram Stain - Final Narrative: Patient is alert. Able to complain about the difference in his BiPAP machine at the hospital. Lungs have extremely poor air movement. Some rhonchi. Heart rate regular. Abdomen soft. No significant ankle edema. Globally weak. Oropharynx dry but clear. No JVD. Assessment and Plan (1) Acute on chronic respiratory failure with hypoxemia Current visit: No Status: Acute Category: Medical Code(s): J96.21 - Acute and chronic respiratory failure with hypoxia (2) Community acquired pneumonia Current visit: No Status: Acute Category: Medical Code(s): J18.9 - Pneumonia, unspecified organism (3) Cardiac pacemaker in situ Current visit: No Status: Chronic Category: Medical Code(s): Z95.0 - Presence of cardiac pacemaker (4) Coronary arteriosclerosis Current visit: No Status: Chronic Category: Medical Code(s): I25.10 - Atherosclerotic heart disease of [place] coronary artery without angina pectoris (5) Hypertensive heart disease Current visit: No Status: Chronic Qualifiers: Category: Medical Code(s): I11.9 - Hypertensive heart disease without heart failure (6) PAF (paroxysmal atrial fibrillation) Current visit: No Status: Chronic Category: Medical Code(s): I48.0 - Paroxysmal atrial fibrillation (7) Pulmonary arterial hypertension Current visit: No Status: Chronic Category: Medical Code(s): I27.21 - Secondary pulmonary arterial hypertension (8) Tobacco dependence syndrome Current visit: No Status: Chronic Category: Medical Code(s): F17.200 - Nicotine dependence, unspecified, uncomplicated - Assessment and plan all Dx Assessment and Plan for all problems:: Agree with admission. Agree with continuing maximal steroids, IV antibiotics. Currently current medications. Long discussion about possible further treatment options. Start theophylline, given end-stage disease and maxed out other medical therapy. Discussed mechanism of action of medication and potential benefits/risks with patient and daughter. Put cardiac monitoring on. When discharged will need close follow-up and theophylline level in 3 days.
[2019-08-03 09:11] LABS: Lymphocytes % 8 % (10-50); Macrocytosis 1+; Monocytes % 3 % (2-9); Neutrophils % 89 % (42-76); Total Cells Counted 100
--- NOTE | 2019-08-04 09:05 | Progress Note ---
Internal Medicine - PN: Subj *Date: 08/04/19 *Time: 13:33 Interval history: Patient started on theophylline yesterday. Slight improvement in his respiratory symptoms per his report. Currently stable on 3 L with no dyspnea on interview. Daughter at bedside and updated of plan. Denies fever, chest pain, nausea, vomiting. Sensation of phlegm that he just cannot cough up. Overall appears somewhat better. This morning he does complain of some intermittent choking with eating. Dates this is been going on for several months Exam Vital signs and Labs for Last 24 Hours: Temp Pulse Resp BP Pulse Ox 97.8 F 70 22 126/57 L 96 08/04/19 07:41 08/04/19 08:18 08/04/19 08:18 08/04/19 07:41 08/04/19 08:18 Laboratory Results - last 24 hr 08/03/19 05:55: Total Counted 100, Neutrophils % (Manual) 89 H, Lymphocytes % (Manual) 8 L, Monocytes % (Manual) 3, Platelet Estimate Normal, Macrocytosis 1+ I & O for Last 24 hours: Intake & Output 08/01/19 08/02/19 08/03/19 08/04/19 23:59 23:59 23:59 23:59 Intake Total 240 / 240 2069 / 2189 600 / 600 Output Total 675 / 675 200 / 200 Balance 240 / -110 1394 / 1514 400 / 400 Weight 75.551 kg 82 kg 81.845 kg Microbiology Reports for the Last 24 Hours: Microbiology 08/02/19 13:45 Sputum - Expectorated Sputum Gram Stain - Final 08/02/19 13:45 Sputum - Expectorated Sputum Sputum Culture - Preliminary Narrative: Patient is alert. Stable on 3 L nasal cannula oxygen. Lungs have extremely poor air movement. Some rhonchi diffusely that change with cough Heart rate regular. Abdomen soft. No significant ankle edema. Globally weak. Oropharynx moist and clear. No JVD. Assessment and Plan (1) Acute on chronic respiratory failure with hypoxemia Current visit: No Status: Acute Category: Medical Code(s): J96.21 - Acute and chronic respiratory failure with hypoxia (2) Community acquired pneumonia Current visit: No Status: Acute Category: Medical Code(s): J18.9 - Pneumonia, unspecified organism (3) Cardiac pacemaker in situ Current visit: No Status: Chronic Category: Medical Code(s): Z95.0 - Presence of cardiac pacemaker (4) Coronary arteriosclerosis Current visit: No Status: Chronic Category: Medical Code(s): I25.10 - Atherosclerotic heart disease of [place] coronary artery without angina pectoris (5) Hypertensive heart disease Current visit: No Status: Chronic Qualifiers: Category: Medical Code(s): I11.9 - Hypertensive heart disease without heart failure (6) PAF (paroxysmal atrial fibrillation) Current visit: No Status: Chronic Category: Medical Code(s): I48.0 - Paroxysmal atrial fibrillation (7) Pulmonary arterial hypertension Current visit: No Status: Chronic Category: Medical Code(s): I27.21 - Secondary pulmonary arterial hypertension (8) Tobacco dependence syndrome Current visit: No Status: Chronic Category: Medical Code(s): F17.200 - Nicotine dependence, unspecified, uncomplicated - Assessment and plan all Dx Assessment and Plan for all problems:: Continue current regimen with theophylline and aggressive treatment for pneumonia/COPD exacerbation. Will monitor for another 24 hours out of concern for potential side effects with theophylline. Formal report of echocardiogram still pending. Will consult speech today for swallow study due to coughing with eating as this may complicate his COPD and be an underlying risk factor for why he is having worsening symptoms over the past several months. Further recommendations pending their eval. Continue IV antibiotics for the time being. Anticipate transition oral antibiotics tomorrow with discharge home on continue d oxygen usage likely 3 L continuously and plan for pulmonary rehab in the outpatient setting.
--- NOTE | 2019-08-04 16:15 | Cardiology Report ---
APPROVED REPORT EXAM: Comprehensive 2D, Doppler, and color-flow Echocardiogram Computer Instructor: Amber Marin RT(R) Ht: 5 ft 9 in Wt: 178lbs BSA: 1.97 BP: 142/86 mmHg Indications: Acute respiratory failure, pacemaker, cad, copd, smoking 2D Dimensions LVOT 2.17 cm (M/F) 1.5-2.5 M-Mode Dimensions RVDd 1.92 cm (0.9-2.6)LVDd 3.99 cm (3.5-5.7) LVDs 3.14 cm (3.5-5.7)IVSd 0.98 cm (0.6-1.1) PWd 0.84 cm (0.6-1.1)EF (Teich) 43.80% FS 21.30% EDV (Teich) 69.60 mL ESV (Teich) 39.10 mL LV Diastology E/A Ratio 0.77 Mitral Valve MV A Velocity 73.00 (40-130 cm/s) Left Ventricle Left atrium is mildly enlarged, left ventricle is normal size, mild concentric left ventricular hypertrophy, visually estimated ejection fraction 55% with no regional wall motion abnormality, grade 1 diastolic dysfunction seen without tissue Doppler evidence of raise left atrial pressure. Right Ventricle Right atrium and right ventricle are mildly enlarged with normal contractility, there is a pacemaker lead seen right atrium and right ventricle. Aortic Valve Aortic valve is minimally thickened and fibrosed. There is no aortic stenosis or aortic insufficiency. Mitral Valve Mitral valve is grossly normal, there is mild mitral regurgitation. Tricuspid Valve Tricuspid valve is grossly normal, there is mild tricuspid regurgitation. Pulmonic Valve Pulmonic valve is poorly visualized. Great Vessels Aortic root is normal size. Pericardium No significant pericardial effusion noted. Conclusion 1. Mild mitral enlargement, normal left ventricular size, mild concentric left ventricular hypertrophy, visually estimated ejection fraction 55% with no regional wall motion abnormality, grade 1 diastolic dysfunction seen without tissue Doppler evidence of raise left atrial pressure. 2. Mildly enlarged right ventricle with normal contractility. 3. Mild mitral and tricuspid regurgitation. 4. No significant pericardial effusion noted. Electronically signed by : Nolan Carrion, 08/04/2019 16:15:00
--- NOTE | 2019-08-04 23:15 | Discharge Summary ---
General - General Admission date:: 08/02/19 Discharge date: 08/05/19 HPI HPI: Mr. Hopkins is a pleasant 79-year-old gentleman with progressing gold stage IVd COPD who presented to clinic today with moderate respiratory distress. Has had worsening respiratory symptoms over the past week. Normally wears 2 L of oxygen at home, was satting high 80s in clinic today with a respiratory rate of 30 on presentation on his baseline 2 L. Dyspneic on interview, poor air movement bilaterally on exam in clinic. Was admitted directly from clinic for further work-up and management of acute on chronic hypoxemic respiratory failure. Patient has been on daily steroids and 3 times a week azithromycin along with aggressive nebulizers and inhalers, montelukast, and continuous oxygen. Is dyspneic at baseline which is exacerbated by movement. Last hospitalization for respiratory illness was 2 months ago. Patient denies smoking cigarettes however does smoke a cigar occasionally with last one 3 to 4 days ago. Denies fever, chest pain, edema. Complains of worsening shortness of breath, productive cough, fatigue, impending sense of doom. Hospital Course Hospital Course: 79-year-old gentleman with end-stage COPD and persistent healthcare acquired pneumonia who was admitted with acute on chronic hypoxemic respiratory failure. Initiated on broad-spectrum antibiotics, steroids, aggressive pulmonary toilet and respiratory treatment. Medications initiated during admission include theophylline. Patient had mild though significant response without any arrhythmias on this medication. Additionally had a swallow study performed due to concern for coughing with certain forms of p.o. intake. Found to have no concerns of aspiration. No changes to his diet were made. Gradual improvement clinically and stable on 3 L oxygen on day of discharge. Medically stable for discharge home. We will have close follow-up with monitoring of theophylline level tomorrow and reassessment in clinic at that time. Patient would benefit from referral to pulmonary rehab, will pursue this in the outpatient setting. Denies chest pain, nausea, vomiting, diarrhea, confusion. Stable for discharge home Objective Vital signs: Temp Pulse Resp BP Pulse Ox 98.0 F 70 18 138/58 L 94 L 08/04/19 19:37 08/04/19 20:00 08/04/19 19:37 08/04/19 19:37 08/04/19 20:00 Narrative: Patient is alert. Stable on 3 L nasal cannula oxygen. Mild baseline respiratory distress Lungs have overall improvement though still diminished air movement. Minimal wheeze bilateral posterior lung foley, no significant rhonchi or crackles. Heart rate regular. Abdomen soft. No significant ankle edema. Globally weak. Oropharynx moist and clear. No JVD. Results Labs on day of discharge: Preliminary micro results at discharge 08/02/19 13:30 Blood Culture - Preliminary Blood NO GROWTH AFTER 48 HOURS 08/02/19 13:30 Blood Culture - Preliminary Blood NO GROWTH AFTER 48 HOURS 08/02/19 13:45 Sputum Culture - Preliminary Sputum - Expectorated Sputum DS: Diagnosis - Discharge Diagnosis (1) Acute on chronic respiratory failure with hypoxemia Status: Acute (2) Community acquired pneumonia Status: Acute (3) Cardiac pacemaker in situ Status: Chronic (4) Coronary arteriosclerosis Status: Chronic (5) Hypertensive heart disease Status: Chronic (6) PAF (paroxysmal atrial fibrillation) Status: Chronic (7) Pulmonary arterial hypertension Status: Chronic (8) Tobacco dependence syndrome Status: Chronic Discharge Plan - Patient Discharge Instructions ACTIVITY: Ambulate as tolerated DIET: continue same diet Patient Instructions: Edema (Alternative Therapy), Pneumonia-Adult, DI for Pneumonia -- Adult, DI for Dependent Edema, DI for Shortness of Breath - Follow up Plan Follow up with: Esequiel Santamaria MD [Primary Care Provider] - 08/06/19 9:00 am Disposition: Home, Self-Long-Term Medications: Home Medications Medication Instructions Recorded Confirmed Type aspirin 325 mg tablet 162.5 mg PO DAILY tab 07/24/17 08/02/19 History ituboqaxjkcn-wowkjuin-paawel 1 tab PO DAILY 07/24/17 08/02/19 History montelukast 10 mg tablet 10 mg PO DAILY tab 07/28/17 08/02/19 History Atorvastatin Calcium [Lipitor 20mg 20 mg PO HS 10/04/18 08/02/19 History Tablet] Glycopyrrolate/Formoterol Fum 2 puffs IH BID 05/12/19 08/02/19 History [Bevespi Aerosphere Inhaler] Trazodone HCl [Desyrel 50mg tablet] 100 mg PO HSP PRN 05/12/19 08/02/19 History Ipratropium/Albuterol Sulfate 3 ml IH QID 30 Days ampul.neb 05/13/19 08/02/19 Rx [Duoneb 3mL neb] nitroglycerin 0.4 mg sublingual 0.4 mg SUBLINGUAL Q5-15M PRN #25 05/16/19 08/02/19 Rx tablet tab Albuterol Sulfate [Proair Hfa 2 puffs IH DAILYP PRN 05/28/19 08/02/19 History 90mcg/puff Inh] Fluticasone Propionate [Flonase 1 spray INTRANASAL BID 05/28/19 08/02/19 History Allergy Relief NS] Tamsulosin HCl 0.4 mg PO DAILYP PRN 05/28/19 08/02/19 History omeprazole 40 mg capsule,delayed 40 mg PO DAILY #90 cap 06/06/19 08/02/19 Rx release Furosemide [Furosemide 40MG tAB] 40 mg PO DAILY 08/02/19 08/02/19 History Sotalol HCl [Sotalol] 120 mg PO BID 08/02/19 08/02/19 History Umeclidinium Brm/Vilanterol Tr 1 inh IH DAILY 08/02/19 08/02/19 History [Anoro Ellipta 62.5-25 Mcg INH] Roflumilast [Daliresp] 250 mcg PO DAILY 30 Days #30 tab 08/04/19 Rx Theophylline Anhydrous [Addy-Dur 300 mg PO DAILY 30 Days #60 08/04/19 Rx 300mg tablet] tab.er.12h Amoxicillin/Potassium Clav 1 tab PO Q12H 11 Days #22 tab 08/05/19 Rx [Augmentin 875-125 Tablet] Azithromycin 500 mg PO DAILY 3 Days #3 tab 08/05/19 Rx Prescriptions/Medication Reconciliation: New Amoxicillin/Potassium Clav [Augmentin 875-125 Tablet] 1 tab PO Q12H 11 Days #22 tab Theophylline Anhydrous [Addy-Dur 300mg tablet] 300 mg PO DAILY 30 Days #60 tab.er.12h Azithromycin 500 mg PO DAILY 3 Days #3 tab Continued aspirin 325 mg tablet 162.5 mg PO DAILY tab aekmzktczvzg-wtzosbpw-zdmcsc 1 tab PO DAILY montelukast 10 mg tablet 10 mg PO DAILY tab nitroglycerin 0.4 mg sublingual tablet 0.4 mg SUBLINGUAL Q5-15M PRN #25 tab PRN Reason: chest pain omeprazole 40 mg capsule,delayed release 40 mg PO DAILY #90 cap Glycopyrrolate/Formoterol Fum [Bevespi Aerosphere Inhaler] 2 puffs IH BID Tamsulosin HCl 0.4 mg PO DAILYP PRN PRN Reason: PROSTATE Sotalol HCl [Sotalol] 120 mg PO BID Umeclidinium Brm/Vilanterol Tr [Anoro Ellipta 62.5-25 Mcg INH] 1 inh IH DAILY Furosemide [Furosemide 40MG tAB] 40 mg PO DAILY Roflumilast [Daliresp] 250 mcg PO DAILY 30 Days #30 tab Atorvastatin Calcium [Lipitor 20mg Tablet] 20 mg PO HS Trazodone HCl [Desyrel 50mg tablet] 100 mg PO HSP PRN PRN Reason: Insomnia Ipratropium/Albuterol Sulfate [Duoneb 3mL neb] 3 ml IH QID 30 Days ampul.neb Albuterol Sulfate [Proair Hfa 90mcg/puff Inh] 2 puffs IH DAILYP PRN PRN Reason: SHORTNESS OF BREATH/WHEEZING Fluticasone Propionate [Flonase Allergy Relief NS] 1 spray INTRANASAL BID - Problem Reconciliation Problems Reviewed?: Yes
[2019-08-05 06:54] LABS: Basophils % 0.1 % (0.1-2.0); Eosinophils % 0.1 % (0.1-12.0); Hematocrit 28.4 % (42.0-52.0); Hemoglobin 9.5 g/dL (14.1-18.0); Lymphocytes # 0.5 K/mm3 (0.7-4.5); Lymphocytes % 3.4 % (10-50); Mean Corpuscular HGB Conc 33.5 g/dL (31.8-35.4); Mean Corpuscular Volume 101.3 fl (80-94); Mean Platelet Volume 8.8 fl (7.4-10.4); Monocytes # 0.4 K/mm3 (0.1-1.0); Monocytes % 2.8 % (1.7-9.3); Neutrophils # 14.7 K/mm3 (1.8-7.8); Neutrophils % 93.6 % (37.0-80.0); Platelet Count 304 K/mm3 (142-424); Red Cell Distribution Width 15.3 % (11.5-17.5); White Blood Count 15.7 K/mm3 (4.8-10.8)
[2019-08-05 07:06] LABS: Anion Gap 9.1 mEq/L (5-15); Calcium 8.5 mg/dL (8.5-10.1)
[2019-08-05 09:44] LABS: Lymphocytes % 2 % (10-50); Macrocytosis 1+; Monocytes % 4 % (2-9); Neutrophils % 94 % (42-76); Total Cells Counted 100
== END 2019-08-05 10:05 | disposition home or self-care (01) | DRG 193 ==
LOC: 2ND 12:06
PROVIDERS: ADMIT Internal Medicine Adolescent Medicine; ATTEND Internal Medicine Adolescent Medicine
DX: I48.0 Paroxysmal atrial fibrillation; I27.21 Secondary pulmonary arterial hypertension; Z87.01 Personal history of pneumonia (recurrent); I11.9 Hypertensive heart disease without heart failure; I25.10 Atherosclerotic heart disease of native coronary artery without angina pectoris; J18.9 Pneumonia, unspecified organism; Z79.51 Long term (current) use of inhaled steroids; Z79.82 Long term (current) use of aspirin; Z79.899 Other long term (current) drug therapy; Z95.0 Presence of cardiac pacemaker; J96.21 Acute and chronic respiratory failure with hypoxia; Z82.49 Family history of ischemic heart disease and other diseases of the circulatory system; Z95.5 Presence of coronary angioplasty implant and graft; Z99.81 Dependence on supplemental oxygen; J44.9 Chronic obstructive pulmonary disease, unspecified; Z87.891 Personal history of nicotine dependence
CPT/HCPCS: 36415; 71270; 80048; 80053; 82803; 83605; 83735; 85007; 85025; 87040; 87070; 87205; 92610; 93306; 94640; 94660; 94761; 97110; 97116; 97161; 97530; J2543; Q9967

== ENCOUNTER → 2019-08-06 09:04 | Outpatient (CLI) | payer MEDICARE, OTHER, SELFPAY ==
[2019-08-06 13:36] LABS: Theophylline 5.3 ug/mL (10-20)
== END ==
PROVIDERS: Visit Provider Internal Medicine Adolescent Medicine
DX: J44.9 Chronic obstructive pulmonary disease, unspecified (principal)
CPT/HCPCS: 36415; 80198

== ENCOUNTER 2019-10-27 09:04 | Emergency (ER) | payer MEDICARE, OTHER, SELFPAY ==
[2019-10-27 09:07] VITALS: BP 136/74; PULSE 72; RESP 24; TEMP 36.8; O2SAT 94; BMI 25.8
--- NOTE | 2019-10-27 09:19 | ECG_ITS ---
APPROVED REPORT Exam: Resting ECG HR:70 bpm ECG Measurements Heart Rate 70 AXES MN 134 P 90 QRSd 86 QRS 63 QT 426 T 68 QTc 460 <Conclusion> Normal sinus rhythm Normal ECG Electronically signed by : Yobany Stoll, 10/27/2019 21:55:03
--- NOTE | 2019-10-27 09:19 | HMH.EDGENADL ---
ED Disposition Clinical Impression: COPD exacerbation Disposition: Home, Self-Care Condition on Discharge: Fair Instructions: DI for Chronic Obstructive Pulmonary Disease, DI for Shortness of Breath Additional Instructions: Prednisone 40 mg a day for 5 days, then resume taking prednisone 5 mg a day as before. See Dr. Santamaria in the office next week at noon on 11/01/2019. Call him for further difficulties. Prescriptions: predniSONE [Prednisone 20mg Tab] 20 mg PO BID #10 tab Transmission Status: Sent to [id number] Referrals: Esequiel Snatamaria MD [Primary Care Provider] - - Critical Care Critical Care Time: No Attestation: On 10/27/19, the high probability of a clinically significant, sudden or life threatening deterioration of the following system(s) required my full and direct attention, intervention and personal management. The time I documented below is in addition to time spent performing reported procedures but includes the following listed in this critical care notation. Medical Decision Making - Medical Records Medical records reviewed: Yes: I reviewed the patient's medical records. - Jamie Inquiry Pt receiving controlled substance: No Vital Signs: 10/27/19 09:07 10/27/19 10:21 10/27/19 10:43 Temperature 98.2 F Temperature Source Oral Pulse Rate [Right Radial] 72 70 72 Respiratory Rate 24 Blood Pressure [Right Arm] 136/74 155/61 H 117/82 Blood Pressure Mean [Right Arm] 94 92 93 Blood Pressure Source [Right Arm] Automatic Cuff Automatic Cuff Automatic Cuff Blood Pressure Position [Right Arm] Sitting Sitting Sitting 02 Sat by Pulse Oximetry 94 L 99 96 Oxygen Delivery Method Nasal Cannula Nasal Cannula Nasal Cannula Oxygen Flow Rate (LPM) 3 3 3 10/27/19 11:32 Temperature Temperature Source Pulse Rate [Right Radial] 71 Respiratory Rate 20 Blood Pressure [Right Arm] 151/104 H Blood Pressure Mean [Right Arm] 119 Blood Pressure Source [Right Arm] Automatic Cuff Blood Pressure Position [Right Arm] Sitting 02 Sat by Pulse Oximetry 98 Oxygen Delivery Method Oxygen Flow Rate (LPM) - Lab Data Lab results reviewed: Yes: I reviewed the patient's lab results. Lab Results 10/27/19 09:30: WBC 10.4, RBC 4.08 L, Hgb 13.9 L, Hct 41.5 L, MCV 101.8 H, MCH 34.1 H, MCHC 33.5, RDW 13.8, Plt Count 289, MPV 8.5, Neut % (Auto) 76.8, Lymph % (Auto) 12.8, [place] % (Auto) 4.2, Eos % (Auto) 5.8, Baso % (Auto) 0.4, Neut # (Auto) 8.0 H, Lymph # (Auto) 1.3, [place] # (Auto) 0.4, Eos # (Auto) 0.6 H, Baso # (Auto) 0.0 10/27/19 09:30: Sodium 137, Potassium 4.2, Chloride 100, Carbon Dioxide 33 H, Anion Gap 8.2, BUN 12, Creatinine 0.80, Estimated Creat Clear 66, Estimated GFR 93, Est GFR ( Amer) 113, Glucose 136 H, Calcium 9.5, Total Bilirubin 0.4, AST 25, ALT 15, Alkaline Phosphatase 128 H, Troponin I < 0.01, Total Protein 7.5, Albumin 4.6, Globulin 2.9, Albumin/Globulin Ratio 1.6 10/27/19 09:30: Lactate 1.5 10/27/19 09:33: Specimen Source Right brachial, O2 % 3lpm nc, ABG pH 7.35, ABG pCO2 48.9 H, ABG pO2 83.7, ABG HCO3 26.6 H, ABG Total CO2 28.1 H, ABG O2 Saturation 96, ABG Base Excess 1.1, Hamzah Test Non applicable Result diagrams: 10/27/19 09:30 10/27/19 09:30 Orders (Tests/Meds): ED MEDICATIONS Generic Name Dose Route Start Last Admin Trade Name Freq PRN Reason Stop Dose Admin Sodium Chloride 3 ml 10/27/19 09:40 Sodium Chloride 3% 15ml [facility] 11/26/19 09:39 ONCE PRN INDUCE SPUTUM COLLECTION Discontinued Medications Generic Name Dose Route Start Last Admin Trade Name Freq PRN Reason Stop Dose Admin Albuterol/Ipratropium 3 ml 10/27/19 09:41 10/27/19 10:06 Duoneb 3ml [facility] 10/27/19 09:42 3 ml ONCE ONE Administration Methylprednisolone Sodium Succinate 125 mg 10/27/19 09:41 10/27/19 09:53 Solu-Medrol 125mg/2ml Vial IV 10/27/19 09:42 125 mg ONCE ONE Administration ORDERS Category Date Time Status Troponin I Q3H Lab 10/27/19 12:45 Ordered
--- NOTE | 2019-10-27 09:31 | PC.NURSE ---
at RT at bedside
--- NOTE | 2019-10-27 09:32 | XR_ITS ---
PROCEDURE: XR CHEST PORTABLE CLINICAL HISTORY: SOA, PRODUCTIVE COUGH, COPD Shortness of air, productive COMPARISON: XR CHEST PORTABLE from 05/28/2019 XR CHEST 2V from 06/17/2019 XR CHEST PORTABLE from 07/26/2019 CT CHEST WO/W CON from 08/02/2019 FINDINGS: Bipolar pacemaker is present from left subclavian approach. COPD with atelectatic change in the left lung base. Surgical clips are present in the epigastric region IMPRESSION: Pacemaker present with COPD and atelectasis in the left lung base. No change no acute finding. Dictated by: Hamzah Hamilton MD 10/27/2019 10:21 Electronically signed by Hamzah Hamilton MD in [place] 10/27/2019 10:21
[2019-10-27 09:42] LABS: Basophils % 0.4 % (0.1-2.0); Eosinophils # 0.6 K/mm3 (0.0-0.4); Eosinophils % 5.8 % (0.1-12.0); Hematocrit 41.5 % (42.0-52.0); Hemoglobin 13.9 g/dL (14.1-18.0); Lymphocytes # 1.3 K/mm3 (0.7-4.5); Lymphocytes % 12.8 % (10-50); Mean Corpuscular HGB Conc 33.5 g/dL (31.8-35.4); Mean Corpuscular Hemoglobin 34.1 pg (27.0-31.2); Mean Corpuscular Volume 101.8 fl (80-94); Mean Platelet Volume 8.5 fl (7.4-10.4); Monocytes # 0.4 K/mm3 (0.1-1.0); Monocytes % 4.2 % (1.7-9.3); Neutrophils % 76.8 % (37.0-80.0); Platelet Count 289 K/mm3 (142-424); Red Blood Count 4.08 M/mm3 (4.60-6.20); Red Cell Distribution Width 13.8 % (11.5-17.5); White Blood Count 10.4 K/mm3 (4.8-10.8)
[2019-10-27 09:45] LABS: Chloride 100 mmol/L (98-107)
[2019-10-27 09:48] LABS: Alanine Aminotransferase 15 U/L (12-78); Albumin Level 4.6 g/dl (3.5-5.0); Albumin/Globulin Ratio 1.6 (1.1-1.8); Alkaline Phosphatase 128 U/L (38-126); Anion Gap 8.2 mEq/L (5-15); Aspartate Amino Transferase 25 U/L (17-59); Bilirubin,Total 0.4 mg/dl (0.2-1.3); Blood Urea Nitrogen 12 mg/dl (9-20); Calcium 9.5 mg/dl (8.4-10.2); Carbon Dioxide 33 mmol/L (22.0-30.0); Creatinine Clearance Estimated 66 mL/min (50-200); Estimated Glomerular Filt Rate 93 ml/min (>60); GFR (African American) 113 ML/MIN (>60); Globulin 2.9 g/dL (1.3-3.2); Glucose 136 mg/dl (74-100); Lactic Acid 1.5 mmol/L (0.7-2.1); Potassium 4.2 mmoL/L (3.5-5.1); Sodium 137 mmol/L (136-145); Total Protein,Serum 7.5 g/dl (6.3-8.2)
[2019-10-27 09:48] LABS: ABG Base Excess 1.1 mmol/L (-2.4-2.3); ABG HCO3 26.6 mmhg (22.0-26.0); ABG Oxygen Saturation 96 % (90-100); ABG PCO2 48.9 mmhg (35.0-45.0); ABG PH 7.35 mmol/L (7.35-7.45); ABG PO2 83.7 mmhg (80-100); ABG TCO2 28.1 mmhg (23-27)
[2019-10-27 09:50] LABS: Allen's Test Non Applicable; Source Right Brachial
--- NOTE | 2019-10-27 09:54 | PC.NURSE ---
Rad at bedside
[2019-10-27 10:01] LABS: Troponin I < 0.01 ng/ml (0.00-0.034)
[2019-10-27 10:21] VITALS: BP 155/61; PULSE 70; O2SAT 99
[2019-10-27 10:43] VITALS: BP 117/82; PULSE 72; O2SAT 96
--- NOTE | 2019-10-27 11:03 | PC.NURSE ---
Dr Rosalio pierce
--- NOTE | 2019-10-27 11:27 | PC.NURSE ---
Dr Santamaria paged again
[2019-10-27 11:32] VITALS: BP 151/104; PULSE 71; RESP 20; O2SAT 98
--- NOTE | 2019-10-27 11:33 | PC.NURSE ---
Dr Santamaria returned call.
[2019-10-27 11:52] VITALS: BP 138/100; PULSE 70; RESP 22; TEMP 36.6; O2SAT 99
[2019-10-27 16:33] LABS: Theophylline < 1.0 ug/ml (10-20)
== END 2019-10-27 11:59 | disposition home or self-care (01) ==
PROVIDERS: Emergency Provider Emergency Medicine; PCP Internal Medicine Adolescent Medicine
DX: J44.1 Chronic obstructive pulmonary disease with (acute) exacerbation (principal); K21.9 Gastro-esophageal reflux disease without esophagitis; I48.91 Unspecified atrial fibrillation; I25.10 Atherosclerotic heart disease of native coronary artery without angina pectoris; I10 Essential (primary) hypertension; I25.2 Old myocardial infarction; E78.5 Hyperlipidemia, unspecified; F17.210 Nicotine dependence, cigarettes, uncomplicated; Z95.0 Presence of cardiac pacemaker
CPT/HCPCS: 71045; 80053; 80198; 82803; 83605; 84484; 85025; 87040; 93005; 96374; 99284

== ENCOUNTER → 2019-11-07 12:34 | Outpatient (CLI) | payer MEDICARE, OTHER, SELFPAY ==
[2019-11-07 14:51] LABS: Theophylline 6.6 ug/ml (10-20)
== END ==
PROVIDERS: Visit Provider Internal Medicine Adolescent Medicine
DX: J44.1 Chronic obstructive pulmonary disease with (acute) exacerbation (principal)
CPT/HCPCS: 36415; 80198

== ENCOUNTER 2019-11-08 13:00 | Observation (INO) | payer MEDICARE, OTHER, SELFPAY ==
[2019-11-08] VITALS (7 sets, daily range): BP systolic 136–140; BP diastolic 59–71; PULSE 68–81; RESP 20–24; TEMP 36.6–36.8; O2SAT 93–97; BMI 26.9
--- NOTE | 2019-11-08 13:13 | XR_ITS ---
PROCEDURE: XR CHEST 2V CLINICAL HISTORY: short of air COMPARISON: XR CHEST 2V from 06/17/2019 XR CHEST PORTABLE from 07/26/2019 CT CHEST WO/W CON from 08/02/2019 XR CHEST PORTABLE from 10/27/2019 FINDINGS: The cardiomediastinal silhouette and pulmonary vascularity are within normal limits. The left infraclavicular cardiac pacemaker is again noted with dual chamber electrodes both in good position. Mild emphysematous changes are noted with hyperexpansion of the lung foley and flattening of the hemidiaphragms. There is minimal postinflammatory scarring versus atelectasis at the left base. There is no acute infiltrate seen. Again noted are multiple surgical clips at the gastroesophageal junction. IMPRESSION: Mild emphysematous changes, no acute chest pathology noted Dictated by: Dr. Tenzin Ceron MD 11/08/2019 14:[address] Tenzin Ceron MD in [place] 11/08/2019 14:15
--- NOTE | 2019-11-08 13:25 | HMH.PHAVTE ---
[facility] VTE Monitoring - Patient Demographics Admission date: 11/08/19 Report Date: 11/08/19 Time: 13:25 Allergies/Adverse Reactions: Patient Allergies No Known Drug Allergies Allergy (Unknown, Verified 07/26/19 08:41) - Prophylaxis VTE Prophylaxis Ordered?: Yes Types of VTE Prophylaxis: TEDS Knee High Location of Applied Device: Bilateral Lower Extremeties - VTE Diagnosis Confirmed Treatment or plan recommended: Continue Current Treatment
[2019-11-08 13:56] LABS: ABG HCO3 25.2 mmhg (22.0-26.0); ABG Oxygen Saturation 94 % (90-100); ABG PH 7.38 mmol/L (7.35-7.45); ABG PO2 73.6 mmhg (80-100); ABG TCO2 26.6 mmhg (23-27)
[2019-11-08 13:57] LABS: Allen's Test ACCEPTABLE; Oxygen 3LPM %; Source R RADIAL
[2019-11-08 14:10] LABS: Alanine Aminotransferase 14 U/L (12-78); Albumin/Globulin Ratio 1.3 (1.1-1.8); Alkaline Phosphatase 99 U/L (38-126); Anion Gap 6.6 mEq/L (5-15); Aspartate Amino Transferase 24 U/L (17-59); Bilirubin,Total 0.3 mg/dl (0.2-1.3); Blood Urea Nitrogen 12 mg/dl (9-20); Calcium 9.3 mg/dl (8.4-10.2); Carbon Dioxide 33 mmol/L (22.0-30.0); Chloride 99 mmol/L (98-107); Creatinine Clearance Estimated 69 mL/min (50-200); Estimated Glomerular Filt Rate 130 ml/min (>60); GFR (African American) 157 ML/MIN (>60); Glucose 103 mg/dl (74-100); Magnesium 2.1 mg/dl (1.6-2.3); Potassium 4.6 mmoL/L (3.5-5.1); Sodium 134 mmol/L (136-145)
--- NOTE | 2019-11-08 14:13 | HMH.HP ---
*Admission Date: 11/08/19 *Chief complaint: SOA *History of present illness: Mr. Hopkins is an 79-year-old male with multiple comorbidities including end-stage COPD. He presented to clinic today with worsening shortness of breath for his one-week follow-up. Seen last week for chronic Sx. Given med list he was instructed to adhere to. Labs yesterday to check theophylline level which was detectable this time, but below therapeutic range. States he feels worse today, more short of breath, dyspneic with exertion. He is currently on maximal therapy for his gold stage IVb COPD. Decision was made in clinic to admit him for acute on chronic hypoxemic respiratory failure as his oxygen saturations were 85% on 3 L nasal cannula in the exam room. With focused breathing we were able to get his saturations up to 92% after 10 to 15 minutes of sedentary activity. Tachypneic however with respiratory rate in the mid 20s. Plan for imaging, labs, initiation of steroids and antibiotics. Have had multiple discussions over the past few visits with him about the end-stage nature of his COPD and potential need to start opiate therapy for air hunger. He has a clear understanding of the terminal nature and progressive nature of his lung disease. Reports he has not smoked in many months. Denies orthopnea, lower extremity edema, chest pain, nausea, vomiting, syncope. [facility] History I have reviewed the patient's past medical history: Yes Medical History: Reports:: Arrhythmia, Asthma, Atrial Fibrillation, Chronic Obstructive Pulmonary Disease (COPD), Coronary Artery Disease, Gastroesophageal Reflux Disease(GERD), Hyperlipidemia, Hypertension, Internal Pacemaker, Myocardial Infarction Denies:: Cancer, Diabetes Mellitus Type 1, Diabetes Mellitus Type 2, MRSA, Seizures *Have you ever received a pneumonia vaccine?: Yes *Have you received a flu vaccine this season?: Yes Other Medical History: Reports: Arthritis, Other Other Surgeries: Yes: Cardiac Catheterization, Colonoscopy, Coronary Stent, Hernia Repair, Pacemaker, Other (Back Sx, LHC-stent, Loop recorder placed) Amputation: No Fractures: No - *Social History Smoking Status: Former smoker Tobacco Type: cigarettes # Packs/Day (cigarettes): 1 #Yrs smoked (if former smoker): 60 Alcohol Intake: never Alcohol Intake Frequency:: other Substance Use Type: denies use *Occupational Status:: retired Housing: house Household Members: children *Travel in the last 8 weeks: None Family Hx:: Cancer, Diabetes, Heart Attack Review of Systems - Review of Systems Review of systems:: pertinent systems reviewed and negative unless documented below (14 point review of systems performed, pertinent positives and negatives as per HPI) Meds Home Medications Medication Instructions Recorded Confirmed Type aspirin 325 mg tablet 162.5 mg PO DAILY tab 07/24/17 11/08/19 History addfyvpvoqtk-cvssdzqi-pxexyh 1 tab PO DAILY 07/24/17 11/08/19 History montelukast 10 mg tablet 10 mg PO DAILY tab 07/28/17 11/08/19 History Glycopyrrolate/Formoterol Fum 2 puffs IH BID 05/12/19 11/08/19 History [Bevespi Aerosphere Inhaler] Ipratropium/Albuterol Sulfate 3 ml IH QID 30 Days ampul.neb 05/13/19 11/08/19 Rx [Duoneb 3mL neb] nitroglycerin 0.4 mg sublingual 0.4 mg SUBLINGUAL Q5-15M PRN #25 05/16/19 11/08/19 Rx tablet tab Albuterol Sulfate [Proair Hfa 2 puffs IH DAILYP PRN 05/28/19 11/08/19 History 90mcg/puff Inh] omeprazole 40 mg capsule,delayed 40 mg PO DAILY #90 cap 06/06/19 11/08/19 Rx release Sotalol HCl [Sotalol] 120 mg PO BID 08/02/19 11/08/19 History Umeclidinium Brm/Vilanterol Tr 1 inh IH DAILY 08/02/19 11/08/19 History [Anoro Ellipta 62.5-25 Mcg INH] atorvastatin 20 mg tablet 20 mg PO HS #90 tab 09/08/19 11/08/19 Rx predniSONE [Prednisone 20mg 20 mg PO BID 11/08/19 11/08/19 History Tab] Allergies Allergy/AdvReac Type Severity Reaction Status Date / Time No Known Drug Allergies Allergy Unknown Verified
[2019-11-08 14:55] LABS: Basophils % 0.3 % (0.1-2.0); Eosinophils # 0.3 K/mm3 (0.0-0.4); Eosinophils % 1.9 % (0.1-12.0); Hematocrit 38.9 % (42.0-52.0); Hemoglobin 12.7 g/dL (14.1-18.0); Lymphocytes # 1.3 K/mm3 (0.7-4.5); Lymphocytes % 9.6 % (10-50); Mean Corpuscular HGB Conc 32.6 g/dL (31.8-35.4); Mean Corpuscular Hemoglobin 32.8 pg (27.0-31.2); Mean Corpuscular Volume 100.6 fl (80-94); Mean Platelet Volume 8.3 fl (7.4-10.4); Monocytes # 0.6 K/mm3 (0.1-1.0); Monocytes % 4.7 % (1.7-9.3); Neutrophils # 11.3 K/mm3 (1.8-7.8); Neutrophils % 83.4 % (37.0-80.0); Platelet Count 279 K/mm3 (142-424); Red Blood Count 3.87 M/mm3 (4.60-6.20); Red Cell Distribution Width 13.8 % (11.5-17.5); White Blood Count 13.6 K/mm3 (4.8-10.8)
--- NOTE | 2019-11-08 19:18 | PC.NURSE ---
report given to low
--- NOTE | 2019-11-09 02:08 | PC.NURSE ---
A&OX3. PERRLA, SPD TECH EQUAL BILAT. TOLERATED 3LNC WELL THIS SHIFT. LUNGS CLEAR T/O AUSCULTATION. C/O SOA WITH TALKING AT TIMES, BREATHING TREATMENT ADMINISTERED PER AUG AND REPORTED RELIEF. PRODUCTIVE COUGH NOTED AT BEGINNING OF SHIFT, SPUTUM NOTED CREAM IN COLOR AND THICK CONSISTENCY. SPUTUM COLLECTED AND SENT TO LAB. PULSES +2, CAP REFILL <3SEC. ABDOMEN NONDISTENDED, ACTIVE BOWEL SOUNDS NOTED IN ALL QUADS, SOFT AND NONTENDER PER PALPATION. INDEPENDENT WITH BED MOBILITY. VSS. WILL CONTINUE TO MONITOR.
[2019-11-09 04:00] VITALS: BP 126/75; PULSE 75; RESP 18; TEMP 36.4; O2SAT 97
[2019-11-09 05:15] VITALS: BMI 28.0
[2019-11-09 06:15] VITALS: PULSE 71; PULSE 73; O2SAT 97
--- NOTE | 2019-11-09 07:32 | HMH.ACPN2 ---
Internal Medicine - PN: Subj *Date: 11/09/19 *Time: 07:32 Interval history: Overall patient feels a little bit better this morning. Eating his breakfast vigorously. States that he has a little bit less short of air compared to yesterday. Exam Vital signs and Labs for Last 24 Hours: Temp Pulse Resp BP Pulse Ox 97.5 F L 73 18 126/75 97 11/09/19 04:00 11/09/19 06:15 11/09/19 04:00 11/09/19 04:00 11/09/19 06:15 Laboratory Results - last 24 hr 11/08/19 13:15: Specimen Source R radial, O2 % 3lpm, ABG pH 7.38, ABG pCO2 44.0, ABG pO2 73.6 L, ABG HCO3 25.2, ABG Total CO2 26.6, ABG O2 Saturation 94, ABG Base Excess 0.0, Hamzah Test Acceptable 11/08/19 13:40: Sodium 134 L, Potassium 4.6, Chloride 99, Carbon Dioxide 33 H, Anion Gap 6.6, BUN 12, Creatinine 0.60 L, Estimated Creat Clear 69, Estimated GFR 130, Est GFR ( Amer) 157, Glucose 103 H, Calcium 9.3, Magnesium 2.1, Total Bilirubin 0.3, AST 24, ALT 14, Alkaline Phosphatase 99, Total Protein 7.0, Albumin 4.0, Globulin 3.0, Albumin/Globulin Ratio 1.3 11/08/19 13:40: Lactate 1.0 11/08/19 14:05: WBC 13.6 H, RBC 3.87 L, Hgb 12.7 L, Hct 38.9 L, MCV 100.6 H, MCH 32.8 H, MCHC 32.6, RDW 13.8, Plt Count 279, MPV 8.3, Neut % (Auto) 83.4 H, Lymph % (Auto) 9.6 L, [place] % (Auto) 4.7, Eos % (Auto) 1.9, Baso % (Auto) 0.3, Neut # (Auto) 11.3 H, Lymph # (Auto) 1.3, [place] # (Auto) 0.6, Eos # (Auto) 0.3, Baso # (Auto) 0.0 I & O for Last 24 hours: Intake & Output 11/06/19 11/07/19 11/08/19 11/09/19 11:59 11:59 11:59 11:59 Intake Total 310 / 310 Output Total 200 / 200 Balance 110 / 110 Weight 189 lb 9 oz Microbiology Reports for the Last 24 Hours: Microbiology 11/08/19 19:30 Sputum - Expectorated Sputum Gram Stain - Final Narrative: Patient is awake. Alert. No scleral icterus or jaundice. Otherwise ENT exam clear. Heart rate regular. Lungs have very poor air entry, scattered rhonchi with expiratory wheezing. However air entry is symmetric. This is very close to his baseline. Abdomen soft. No peripheral edema or clubbing. Neurologic exam nonfocal. Assessment and Plan (1) Acute on chronic respiratory failure with hypoxemia Current visit: No Status: Acute Category: Medical Code(s): J96.21 - Acute and chronic respiratory failure with hypoxia (2) Cardiac pacemaker in situ Current visit: No Status: Chronic Category: Medical Code(s): Z95.0 - Presence of cardiac pacemaker (3) Coronary arteriosclerosis Current visit: No Status: Chronic Category: Medical Code(s): I25.10 - Atherosclerotic heart disease of [place] coronary artery without angina pectoris (4) Dyspnea Current visit: No Status: Chronic Qualifiers: Dyspnea type: shortness of breath Qualified Code(s): R06.02 - Shortness of breath Category: Medical Code(s): R06.00 - Dyspnea, unspecified (5) Hyperlipidemia Current visit: No Status: Chronic Qualifiers: Category: Medical Code(s): E78.5 - Hyperlipidemia, unspecified (6) Hypertensive heart disease Current visit: No Status: Chronic Qualifiers: Category: Medical Code(s): I11.9 - Hypertensive heart disease without heart failure (7) Tobacco dependence syndrome Current visit: No Status: Chronic Category: Medical Code(s): F17.200 - Nicotine dependence, unspecified, uncomplicated - Assessment and plan all Dx Assessment and Plan for all problems:: End-stage lung disease. Trial of low-dose Roxanol today. Continue current nebs. Patient feels a little better and is discussing going home. If Roxanol trial helps patient would consider discharge later today. Also consider transitioning theophylline from once daily to twice daily dosing with smaller increments to help with absorption.
[2019-11-09 08:00] VITALS: BP 167/76; PULSE 77; RESP 22; TEMP 36.7; O2SAT 94
[2019-11-09 08:39] VITALS: PULSE 77; RESP 22; O2SAT 94
[2019-11-09 12:10] VITALS: PULSE 74
--- NOTE | 2019-11-09 13:28 | [facility].DCSUM ---
General - General Admission date:: 11/08/19 Discharge date: 11/09/19 HPI HPI: Mr. Hopkins is an 79-year-old male with multiple comorbidities including end-stage COPD. He presented to clinic today with worsening shortness of breath for his one-week follow-up. Seen last week for chronic Sx. Given med list he was instructed to adhere to. Labs yesterday to check theophylline level which was detectable this time, but below therapeutic range. States he feels worse today, more short of breath, dyspneic with exertion. He is currently on maximal therapy for his gold stage IVb COPD. Decision was made in clinic to admit him for acute on chronic hypoxemic respiratory failure as his oxygen saturations were 85% on 3 L nasal cannula in the exam room. With focused breathing we were able to get his saturations up to 92% after 10 to 15 minutes of sedentary activity. Tachypneic however with respiratory rate in the mid 20s. Plan for imaging, labs, initiation of steroids and antibiotics. Have had multiple discussions over the past few visits with him about the end-stage nature of his COPD and potential need to start opiate therapy for air hunger. He has a clear understanding of the terminal nature and progressive nature of his lung disease. Reports he has not smoked in many months. Denies orthopnea, lower extremity edema, chest pain, nausea, vomiting, syncope. Hospital Course Hospital Course: Patient was admitted, laboratory studies were basically unrevealing of cause of further dyspnea, and blood gas on oxygen was actually fairly normal for the patient. He was admitted overnight and given nebulizer treatments and enhanced pulmonary toilet. This morning he feels better, and it turns out that he had run out of a couple of inhalers over the last couple of days and just got them refilled yesterday at his pharmacy. Because of his end-stage disease we did try low-dose opioid therapy with Roxanol sublingually, and he reported this made no difference at all in his dyspnea or air hunger sensations. Patient actually wished to go home and seemed to be more at his baseline this morning. Objective Vital signs: Temp Pulse Resp BP Pulse Ox 98.1 F 74 22 167/76 H 94 L 11/09/19 08:00 11/09/19 12:10 11/09/19 08:39 11/09/19 08:00 11/09/19 08:39 Narrative: Narrative: Patient is awake. Alert. No scleral icterus or jaundice. Otherwise ENT exam clear. Heart rate regular. Lungs have very poor air entry, scattered rhonchi with expiratory wheezing. However air entry is symmetric. This is very close to his baseline. Abdomen soft. No peripheral edema or clubbing. Neurologic exam nonfocal. Results Labs on day of discharge: Labs from last 24 hours 11/08/19 11/08/19 11/08/19 14:05 13:40 13:40 WBC 13.6 H RBC 3.87 L Hgb 12.7 L Hct 38.9 L MCV 100.6 H MCH 32.8 H MCHC 32.6 RDW 13.8 Plt Count 279 MPV 8.3 Neut % (Auto) 83.4 H Lymph % (Auto) 9.6 L [place] % (Auto) 4.7 Eos % (Auto) 1.9 Baso % (Auto) 0.3 Neut # (Auto) 11.3 H Lymph # (Auto) 1.3 [place] # (Auto) 0.6 Eos # (Auto) 0.3 Baso # (Auto) 0.0 Specimen Source O2 % ABG pH ABG pCO2 ABG pO2 ABG HCO3 ABG Total CO2 ABG O2 Saturation ABG Base Excess Hamzah Test Sodium 134 L Potassium 4.6 Chloride 99 Carbon Dioxide 33 H Anion Gap 6.6 BUN 12 Creatinine 0.60 L Estimated Creat Clear 69 Estimated GFR 130 Est GFR ( Amer) 157 Glucose 103 H Lactate 1.0 Calcium 9.3 Magnesium 2.1 Total Bilirubin 0.3 AST 24 ALT 14 Alkaline Phosphatase 99 Total Protein 7.0 Albumin 4.0 Globulin 3.0 Albumin/Globulin Ratio 1.3 11/08/19 13:15 WBC RBC Hgb Hct MCV MCH MCHC RDW Plt Count MPV Neut % (Auto) Lymph % (Auto) [place] % (Auto) Eos % (Auto) Baso % (Auto) Neut # (Auto) Lymph # (Auto)
== END 2019-11-09 14:25 | disposition home or self-care (01) ==
PROVIDERS: Admitting Provider Internal Medicine Adolescent Medicine; PCP Internal Medicine Adolescent Medicine; Visit Provider Internal Medicine Adolescent Medicine
DX: J96.21 Acute and chronic respiratory failure with hypoxia (principal); J44.9 Chronic obstructive pulmonary disease, unspecified; I25.10 Atherosclerotic heart disease of native coronary artery without angina pectoris; I48.91 Unspecified atrial fibrillation; Z87.891 Personal history of nicotine dependence; I10 Essential (primary) hypertension; I25.2 Old myocardial infarction; Z95.5 Presence of coronary angioplasty implant and graft; Z95.0 Presence of cardiac pacemaker; Z79.51 Long term (current) use of inhaled steroids; Z79.82 Long term (current) use of aspirin; Z79.899 Other long term (current) drug therapy
CPT/HCPCS: G0379; 36415; 71046; 80053; 80198; 82803; 83605; 83735; 85025; 87040; 87070; 87077; 87186; 87205; 93005; 94640; 94760; 94761; G0378; J0692

== ENCOUNTER → 2019-11-22 12:40 | Outpatient (CLI) | payer MEDICARE, OTHER, SELFPAY ==
[2019-11-22 15:00] LABS: Theophylline 14.2 ug/ml (10-20)
== END ==
PROVIDERS: Visit Provider Internal Medicine Adolescent Medicine
DX: J44.9 Chronic obstructive pulmonary disease, unspecified (principal)
CPT/HCPCS: 36415; 80198

== ENCOUNTER 2020-01-20 00:15 | Emergency (ER) | payer OTHER, MEDICARE, SELFPAY ==
[2020-01-20 00:18] VITALS: BP 114/77; PULSE 95; RESP 26; TEMP 36.8; O2SAT 95; BMI 28.5
--- NOTE | 2020-01-20 00:21 | ECG_ITS ---
APPROVED REPORT Exam: Resting ECG HR:76 bpm ECG Measurements Heart Rate 76 AXES MS 120 P 58 QRSd 82 QRS 49 QT 394 T 58 QTc 443 <Conclusion> Electronic atrial pacemaker Electronically signed by : Yobany Stoll, 01/22/2020 21:17:49
--- NOTE | 2020-01-20 00:30 | XR_ITS ---
PROCEDURE: XR CHEST PORTABLE CLINICAL HISTORY: shortness of air COMPARISON: XR CHEST PORTABLE from 07/26/2019 CT CHEST WO/W CON from 08/02/2019 XR CHEST PORTABLE from 10/27/2019 XR CHEST 2V from 11/08/2019 FINDINGS: Mild emphysematous changes seen with hyperexpansion of the lung foley. There is no infiltrate. The cardiomediastinal silhouette and vascularity are normal. The left-sided cardiac pacemaker is noted with dual chamber electrodes both in good position. There is minimal scarring or atelectasis at the left base. IMPRESSION: Mild to moderate COPD, no acute chest pathology noted Dictated by: Dr. Tenzin Ceron MD 01/20/2020 06:[address] Tenzin Ceron MD in [place] 01/20/2020 06:55
--- NOTE | 2020-01-20 00:37 | PC.NURSE ---
pt received solumedrol 125 prior to arrival
[2020-01-20 00:45] LABS: Alanine Aminotransferase 33 U/L (12-78); Albumin Level 3.7 g/dl (3.5-5.0); Albumin/Globulin Ratio 1.3 (1.1-1.8); Alkaline Phosphatase 81 U/L (38-126); Anion Gap 12.4 mEq/L (5-15); Aspartate Amino Transferase 50 U/L (17-59); Bilirubin,Total 0.5 mg/dl (0.2-1.3); Blood Urea Nitrogen 24 mg/dl (9-20); Carbon Dioxide 28 mmol/L (22.0-30.0); Chloride 100 mmol/L (98-107); Creatinine Clearance Estimated 71 mL/min (50-200); Estimated Glomerular Filt Rate 109 ml/min (>60); GFR (African American) 131 ML/MIN (>60); Globulin 2.8 g/dL (1.3-3.2); Glucose 127 mg/dl (74-100); Potassium 4.4 mmoL/L (3.5-5.1); Sodium 136 mmol/L (136-145); Total Protein,Serum 6.5 g/dl (6.3-8.2)
[2020-01-20 00:48] LABS: ABG Base Excess 3.9 mmol/L (-2.4-2.3); ABG HCO3 28.6 mmhg (22.0-26.0); ABG Oxygen Saturation 93 % (90-100); ABG PCO2 46.3 mmhg (35.0-45.0); ABG PH 7.41 mmol/L (7.35-7.45); ABG PO2 67.8 mmhg (80-100)
[2020-01-20 00:49] LABS: Basophils % 0.3 % (0.1-2.0); Hematocrit 39.2 % (42.0-52.0); Hemoglobin 13.9 g/dL (14.1-18.0); Lymphocytes # 1.1 K/mm3 (0.7-4.5); Lymphocytes % 6.3 % (10-50); Mean Corpuscular HGB Conc 35.4 g/dL (31.8-35.4); Mean Corpuscular Hemoglobin 35.3 pg (27.0-31.2); Mean Corpuscular Volume 99.6 fl (80-94); Mean Platelet Volume 8.3 fl (7.4-10.4); Monocytes # 0.7 K/mm3 (0.1-1.0); Monocytes % 4.1 % (1.7-9.3); Neutrophils # 15.1 K/mm3 (1.8-7.8); Neutrophils % 89.3 % (37.0-80.0); Platelet Count 256 K/mm3 (142-424); Red Blood Count 3.94 M/mm3 (4.60-6.20); White Blood Count 16.9 K/mm3 (4.8-10.8)
[2020-01-20 00:53] LABS: MANUAL DIFFERENTIAL MANUAL DIFFERENTIAL (MANUAL DIFF)
[2020-01-20 00:57] LABS: NT Pro Brain Natriuretic Pep. 477 pg/mL (0-450); Troponin I 0.02 ng/ml (0.00-0.034)
[2020-01-20 00:59] VITALS: PULSE 76; PULSE 80
[2020-01-20 01:00] VITALS: BP 119/74; PULSE 72; RESP 18; O2SAT 97
[2020-01-20 01:12] LABS: Coronavirus 19 IgG Antibody Negative (Negative); Coronavirus 19 IgM Antibody Negative (Negative)
[2020-01-20 01:23] VITALS: BP 131/74; PULSE 74; O2SAT 96
[2020-01-20 01:23] LABS: Lymphocytes % 4 % (10-50); Neutrophils % 96 % (42-76); Total Cells Counted 100
[2020-01-20 01:24] LABS: Ovalocytes 1+; Platelet Estimate Normal; Stomatocytes 1+
[2020-01-20 01:47] VITALS: BP 124/73; PULSE 104; O2SAT 96
--- NOTE | 2020-01-20 02:09 | [facility].EDSOB ---
ED Disposition Clinical Impression: Pneumonia, Acute exacerbation of chronic obstructive airways disease Disposition: Home, Self-Care Condition on Discharge: Good Instructions: Pneumonia-Adult Prescriptions: Azithromycin 250 mg PO DAILY 5 Days #6 tab Transmission Status: Pending to [facility] methylPREDNISolone [Medrol 4mg tab] 4 mg PO DIRECTED #21 tab Transmission Status: Pending to [facility] Cefdinir [Omnicef 300mg Capsule] 300 mg PO BID 10 Days #20 cap Transmission Status: Pending to [facility] Referrals: Esequiel Santamaria MD [Primary Care Provider] - - Critical Care Critical Care Time: No Attestation: On 01/20/20, the high probability of a clinically significant, sudden or life threatening deterioration of the following system(s) required my full and direct attention, intervention and personal management. The time I documented below is in addition to time spent performing reported procedures but includes the following listed in this critical care notation. Medical Decision Making - Medical Records Medical records reviewed: Yes: I reviewed the patient's medical records. - Jamie Inquiry Pt receiving controlled substance: No Vital Signs: 01/20/20 00:18 01/20/20 00:59 01/20/20 01:00 Temperature 98.3 F Temperature Source Oral Pulse Rate 80 Pulse Rate [Right Brachial] 95 H 72 Respiratory Rate 26 H 18 Blood Pressure [Right Arm] 114/77 119/74 Blood Pressure Mean [Right Arm] 89 89 Blood Pressure Source [Right Arm] Automatic Cuff Automatic Cuff Blood Pressure Position [Right Arm] Sitting Sitting 02 Sat by Pulse Oximetry 95 97 Oxygen Delivery Method Nasal Cannula Nasal Cannula Oxygen Flow Rate (LPM) 3 01/20/20 01:23 01/20/20 01:47 Temperature Temperature Source Pulse Rate Pulse Rate [Right Brachial] 74 104 H Respiratory Rate Blood Pressure [Right Arm] 131/74 124/73 Blood Pressure Mean [Right Arm] 93 90 Blood Pressure Source [Right Arm] Automatic Cuff Automatic Cuff Blood Pressure Position [Right Arm] Sitting Sitting 02 Sat by Pulse Oximetry 96 96 Oxygen Delivery Method Nasal Cannula Nasal Cannula Oxygen Flow Rate (LPM) 3 3 - Lab Data Lab results reviewed: Yes: I reviewed the patient's lab results. Lab Results 01/20/20 00:10: WBC 16.9 H, RBC 3.94 L, Hgb 13.9 L, Hct 39.2 L, MCV 99.6 H, MCH 35.3 H, MCHC 35.4, RDW 14.0, Plt Count 256, MPV 8.3, Neut % (Auto) 89.3 H, Lymph % (Auto) 6.3 L, [place] % (Auto) 4.1, Eos % (Auto) 0.0 L, Baso % (Auto) 0.3, Neut # (Auto) 15.1 H, Lymph # (Auto) 1.1, [place] # (Auto) 0.7, Eos # (Auto) 0.0, Baso # (Auto) 0.0, Total Counted 100, Neutrophils % (Manual) 96 H, Lymphocytes % (Manual) 4 L, Platelet Estimate Normal, Ovalocytes 1+, Stomatocytes 1+ 01/20/20 00:10: Sodium 136, Potassium 4.4, Chloride 100, Carbon Dioxide 28, Anion Gap 12.4, BUN 24 H, Creatinine 0.70, Estimated Creat Clear 71, Estimated GFR 109, Est GFR ( Amer) 131, Glucose 127 H, Calcium 9.0, Total Bilirubin 0.5, AST 50, ALT 33, Alkaline Phosphatase 81, Troponin I 0.02, NT-Pro-B Natriuret Pep 477 H, Total Protein 6.5, Albumin 3.7, Globulin 2.8, Albumin/Globulin Ratio 1.3 01/20/20 00:10: SARS-CoV-2 IgG Ab (Rapid) Negative, SARS-CoV-2 IgM Ab (Rapid) Negative 01/20/20 00:20: Lactate 2.0 01/20/20 00:30: ABG pH 7.41, ABG pCO2 46.3 H, ABG pO2 67.8 L, ABG HCO3 28.6 H, ABG Total CO2 30.0 H, ABG O2 Saturation 93, ABG Base Excess 3.9 H Result diagrams: 01/20/20 00:10 01/20/20 00:10 Orders (Tests/Meds): ED MEDICATIONS Generic Name Dose Route Start Last Admin Trade Name Freq PRN Reason Stop Dose Admin Azithromycin 500 mg/ Sodium 250 mls @ 250 mls/hr 01/20/20 01:00 01/20/20 01:04 Chloride IV 02/03/20 00:59 250 mls/hr Q24H SANTANA Administration Protocol Ceftriaxone Sodium 1 gm/ 50 mls @ 100 mls/hr 01/20/20 02:00 01/20/20 01:56 Sodium Chloride IV 02/03/20 01:59 100 mls/hr Q24H SANTANA Admin
[2020-01-20 02:28] VITALS: BP 132/83; PULSE 77; RESP 18; TEMP 36.8; O2SAT 94
== END 2020-01-20 02:28 | disposition home or self-care (01) ==
PROVIDERS: Emergency Provider Family Medicine; PCP Internal Medicine Adolescent Medicine
DX: J18.9 Pneumonia, unspecified organism (principal); J44.0 Chronic obstructive pulmonary disease with (acute) lower respiratory infection; I25.10 Atherosclerotic heart disease of native coronary artery without angina pectoris; I10 Essential (primary) hypertension; I48.20 Chronic atrial fibrillation, unspecified; K21.9 Gastro-esophageal reflux disease without esophagitis; E78.5 Hyperlipidemia, unspecified; I25.2 Old myocardial infarction; Z95.0 Presence of cardiac pacemaker; Z79.899 Other long term (current) drug therapy; Z87.891 Personal history of nicotine dependence
CPT/HCPCS: 71045; 80053; 82803; 83605; 83880; 84484; 85007; 85025; 86328; 87040; 87077; 87186; 93005; 96365; 96367; 96374; 96375; 99284; J0456